=== PATIENT | female | born 1950 | race Caucasian/White ===

== ENCOUNTER 2021-07-23 02:38 | Outpatient (CLI) | payer OTHER, SELFPAY ==
[2021-07-23 12:29] LABS: Source Nasal/Nares
[2021-07-23 16:37] LABS: COVID-19 PCR Negative (Negative)
== END 2021-07-23 02:39 | disposition home or self-care (01) ==
LOC: LBO 02:38
PROVIDERS: PCP Student in an Organized Health Care Education/Training Program; Visit Provider Ophthalmology
DX: Z20.822 Contact with and (suspected) exposure to COVID-19 (principal); Z01.818 Encounter for other preprocedural examination
CPT/HCPCS: 87635

== ENCOUNTER 2021-07-26 06:18 | Day surgery (SDC) | payer OTHER, SELFPAY ==
--- OUTSIDE RECORDS SUMMARY | 2021-07-26 06:20 | XMS_ITS | Encounter Summary ---
:1950 Author Organization Department [facility] Address [address] [place] [address] Care Team Providers Name Role Phone BARRINGTON ANDERSON Primary Care Provider Unavailable Insurance Providers: All historical and current Section Date Range: From patient's date of to the date document was created.This section includes the names of all active insurance providers for the patient. Insurance Type of Plan Start of End of Group Member Insurance Policy P atient's Provider Coverage Name Policy Policy Number ID Provider's Diana's Relationship Coverage Coverage Telephone Name to Policy Number Diana MEDICARE MEDICARE PART May 06, PART A [id number] CHYNATYRESE PATIENT (WNR) (M) A 2013 [id number] 2 BBI MEDICARE MEDICARE PART May 06, PART B [id number] CLEMENTE TYRESE PATIENT (WNR) (M) B 2013 [id number] 2 BBI [facility] Nov 06, WNR [id number] [phone] TYRESE CLEMENTE PATIENT HEALTH SYED(W 2017 [id number] BBI PLAN NR) [facility] USP Nov 06, [id number] [phone] TYRESE RIOJAS PATIENT HEALTH -MART 2017 [id number] BBI PLAN [place] Selected Encounter This section includes the information on record at NH for the Encounter. Date/Time Encounter Type Encounter Description Reason Provider Source Oct 23, 2020 12:52 Outpatient Encounter COMP [facility]OM[facility] PM IHE Encounter Template Text not used by NH Plan of Treatment: Future Appointments (+ 6 months) and Future Tests (+/- 45 days) The Plan of Treatment section includes future care activities for the patient from all NH treatment facilities. This section includes future appointments and future orders which are active, pending or scheduled.Future Appointments This section includes appointments that were scheduled to occur 6 months from the date of the Encounter, up to a maximum of 20 appointments. The data comes from all [facility]. Appointment Date/Time Appointment Type Appointment Facili ty Name March 12, 2021 09:30 AM AMBULATORY - MEDICINE [facility] March 12, 2021 10:30 AM AMBULATORY - SURGERY [facility] March 15, 2021 10:00 AM AMBULATORY - MEDICINE [facility] Apr 14, 2021 01:15 PM AMBULATORY - SURGERY [facility] Social History: Smoking Status (Most current) and Tobacco Use (All prior to encounter date) This section includes the most current, and the historical, smoking and tobacco-related health factors from the NH facility where the Encounter took place.Current Smoking Status This section includes the most current smoking, or tobacco-related health factor, from the NH facility where the Encounter took place. Date/Time Current Smoking Status Comment [facility] Jul 17, 2020 11:00 AM VA-TOBACCO FORMER USER [facility] Tobacco Use History This section includes a history of the smoking, or tobacco-related health factors, that were collected on or before the date of the Encounter. The data comes from the NH facility where the Encounter took place. Date/Time Smoking Status/Tobacco Use Comment [facility] Jul 17, 2020 11:00 AM VA-TOBACCO QUIT 15 YRS OR MORE [facility] Jul 19, 2019 10:33 AM VA-TOBACCO NEVER USED RAFITA Miranda [facility] Jul 20, 2018 10:33 AM QUIT TOBACCO USE > 7 YEARS AGO [facility] Dec 23, 2016 10:27 AM LIFETIME NON-TOBACCO USER [facility] Nov 26, 2015 11:35 AM QUIT TOBACCO USE > 7 YEARS AGO [facility] May 19, 2005 08:38 AM LIFETIME NON-SMOKER [facility] Apr 23, 2004 11:39 AM LIFETIME NON-SMOKER [facility] May 15, 2003 10:08 AM LIFETIME NON[place]SMOKER [place] [facility] Dec 31, 2001 04:36 PM LIFETIME NON[place]SMOKER [facility] [place] [facility] Advance Directives: All historical and current Section Date Range: From patient's date of to the date document was created. This section includes ALL of a patient's completed or amended VA Advance and Rescinded Directives. The entries below indicate that a directive exists for the patient, but an actual copy is not included with this document. The data comes from all [place] facilities. Date Advance Directives Provider Source Jun 05, 2017 ADVANCE DIRECTIVE LILLIAM DEGROOT ROSANGELA T [facility] Encounter Notes: All associated encounter notes This section contains the clinical notes associated to the Encounter. Date/Time Encounter Note(s) Provider Source Oct 23, 2020 12:52 PM PRIMARY CARE ADMINISTRATIVE NOTE: [place]IGO [place] LOCAL TITLE: Administrative Note/Primary Care [facility] STANDARD TITLE: PRIMARY CARE ADMINISTRATIVE NOTE DATE OF NOTE: OCT 23, 2020@12:52 ENTRY DATE: OCT 23, 2020@12:52:26 AUTHOR: RODRIGO [place] EXP COSIGNER: URGENCY: STATUS: COMPLETED Patient lvm at the [facility] asking to have Rx CODEINE 30/ACETAMINOPHEN 300MG TAB renewed and mailed out. /marlo/ RODRIGO [place] School Traffic Supervisor Signed: 10/23/2020 12:53 Receipt Acknowledged By: 10/23/2020 12:54 /marlo/ Barrington ceron MSN, LENS GRINDER ROUGH Nurse Practitioner Faculty * AWAITING SIGNATURE * MAGDY SALAZAR
--- OUTSIDE RECORDS SUMMARY | 2021-07-26 06:20 | XMS_ITS | Encounter Summary ---
:1950 [address] [facility] Address [address] [place] [address] Care Team Providers Name Role Phone BARRINGTON [...] MEDICARE MEDICARE PART May 06, PART A [id number] CHYNATYRESE PATIENT (WNR) (M) A 2013 DE63 2 BBI MEDICARE MEDICARE PART May 06, PART B [id number] CLEMENTE TYRESE PATIENT (WNR) (M) B 2013 DE63 2 BBI [facility] Nov 06, WNR [id number] [phone] TYRESE CLEMENTE PATIENT HEALTH SYED(W 2017 [id number] 364 BBI PLAN NR) [facility] USP Nov 06, [id number] [phone] TYRESE RIOJAS PATIENT HEALTH -MART 2017 [id number] 364 BBI PLAN [place] Selected Encounter This section includes the information on record at [place] for the Encounter. Date/Time Encounter Type Encounter Description Reason Provider Source Sep 22, 2020 12:03 Outpatient Encounter COMP [facility]OM[facility]S [facility] PM IHE Encounter Template Text not used by [place] Plan of Treatment: Future Appointments (+ 6 months) and Future Tests (+/- 45 days) The Plan of Treatment section includes future care activities for the patient from all [place] treatment facilities. This section includes future appointments and future orders which are active, pending or scheduled.Future Appointments This section includes appointments that were scheduled to occur 6 months from the date of the Encounter, up to a maximum of 20 appointments. The data comes from all [facility]. Appointment Date/Time Appointment Type Appointment Facili ty Name Oct 21, 2020 03:00 PM AMBULATORY - MEDICINE [facility] March 12, 2021 09:30 AM AMBULATORY - MEDICINE [facility] March 12, 2021 10:30 AM AMBULATORY - SURGERY [facility] March 15, 2021 10:00 AM AMBULATORY - MEDICINE [facility] Social History: Smoking Status (Most current) and Tobacco Use (All prior to encounter date) This section includes the most current, and the historical, smoking and tobacco-related health factors from the [place] facility where the Encounter took place.Current Smoking Status This section includes the most current smoking, or tobacco-related health factor, from the [place] facility where the Encounter took place. Date/Time Current Smoking Status Comment Facility Jul 17, 2020 11:00 AM VA-TOBACCO FORMER USER [facility] Tobacco Use History This section includes a history of the smoking, or tobacco-related health factors, that were collected on or before the date of the Encounter. The data comes from the [place] facility where the Encounter took place. Date/Time Smoking Status/Tobacco Use Comment [facility] Jul 17, 2020 11:00 AM VA-TOBACCO QUIT 15 YRS OR MORE [facility] Jul 19, 2019 10:33 AM VA-TOBACCO NEVER USED WHIT Ruth [facility] Jul 20, 2018 10:33 AM QUIT TOBACCO USE > 7 YEARS AGO [facility] Dec 23, 2016 10:27 AM LIFETIME NON-TOBACCO USER [facility] Nov 26, 2015 11:35 AM QUIT TOBACCO USE > 7 YEARS AGO [facility] May 19, 2005 08:38 AM LIFETIME NON-SMOKER [facility] Apr 23, 2004 11:39 AM [facility] May 15, 2003 10:08 AM LIFETIME NON-SMOKER [facility] Dec 31, 2001 04:36 PM LIFETIME NON-SMOKER [facility] Advance Directives: All historical and current Section Date Range: From patient's date of to the date document was created. This section includes ALL of a patient's completed or amended VA Advance and Rescinded Directives. The entries below indicate that a directive exists for the patient, but an actual copy is not included with this document. The data comes from all [place] facilities. Date Advance Directives Provider Source Jun 05, 2017 ADVANCE DIRECTIVE LILLIAM DEGROOT ROSANGELA T [facility] Encounter Notes: All associated encounter notes This section contains the clinical notes associated to the Encounter. Date/Time Encounter Note(s) Provider Source Sep 22, 2020 12:03 PM PRIMARY CARE ADMINISTRATIVE NOTE: [place]RIGO [place] LOCAL TITLE: Administrative Note/Primary Care [facility] STANDARD TITLE: PRIMARY CARE ADMINISTRATIVE NOTE DATE OF NOTE: SEP 22, 2020@12:03 ENTRY DATE: SEP 22, 2020@12:04:35 AUTHOR: RODRIGO [place] EXP COSIGNER: URGENCY: STATUS: COMPLETED [place] came to the [facility] to have the following Rx 's renewed and mailed out CODEINE 30/ACETAMINOPHEN 300MG TAB FAMOTIDINE TAB 20MG GLIPIZIDE TAB 10MG METFORMIN TAB,SA 500MG /es/ RODRIGO [place] Sand Drier Signed: 09/22/2020 12:24 Receipt Acknowledged By: * AWAITING SIGNATURE * BARRINGTON ANDERSON
--- OUTSIDE RECORDS SUMMARY | 2021-07-26 06:21 | XMS_ITS ---
:1950 Author Organization Department [facility] Address [address] [place] [address] Care Team Providers Name Role Phone BARRINGTON [...] MEDICARE MEDICARE PART May 06, PART A [id number] TYRESE CLEMENTE PATIENT (WNR) (M) A 2013 DE63 2 BBI MEDICARE MEDICARE PART May 06, PART B [id number] TYRESE CLEMENTE PATIENT (WNR) (M) B 2013 DE63 2 BBI [facility] Nov 06, WNR [id number] [phone] TYRESE CLEMENTE PATIENT HEALTH SYED(W 2017 [id number] 364 BBI PLAN NR) [facility] Nov 06, [id number] [phone] TYRESE RIOJAS PATIENT HEALTH -[facility]ART 2017 [id number] 364 BBI PLAN [place] Selected Encounter This section includes the information on record at [place] for the Encounter. Date/Time Encounter Type Encounter Description Reason Provider Source Jun 02, 2021 02:10 Outpatient Encounter ADMIN PAT ACTIVTIES PM (MASNONCT) IHE Encounter Template Text not used by [place] Plan of Treatment: Future Appointments (+ 6 months) and Future Tests (+/- 45 days) The Plan of Treatment section includes future care activities for the patient from all [place] treatment facilities. This section includes future appointments and future orders which are active, pending or scheduled.Future Appointments This section includes appointments that were scheduled to occur 6 months from the date of the Encounter, up to a maximum of 20 appointments. The data comes from all [facility]. Appointment Date/Time Appointment Type Appointment Facili ty Name Jul 20, 2021 03:00 PM AMBULATORY - MEDICINE [facility] Sep 13, 2021 10:00 AM AMBULATORY MEDICINE [facility] Active, Pending, and Scheduled Orders This section includes a listing of several types of active, pending, and scheduled orders, including clinic medications orders, diagnostic test orders, procedure orders and consult orders; where the start date of the order is 45 days before the date of the Encounter or 45 days after the date of the Encounter. The data comes from all [facility]. Test Date/Time Test Type Test Details Facility Name May 07, 2021 01:57 PM Consult Order PODIATRY OUTPATIENT Cons W LAZARO [facility] Showcase [facility] Social History: Smoking Status (Most current) and Tobacco Use (All prior to encounter date) This section includes the most current, and the historical, smoking and tobacco-related health factors from the [place] facility where the Encounter took place.Current Smoking Status This section includes the most current smoking, or tobacco-related health factor, from the [place] facility where the Encounter took place. Date/Time Current Smoking Status Comment Facility March 15, 2021 10:00 AM VA-TOBACCO NEVER USED RAFITA Miranda [facility] Tobacco Use History This section includes a history of the smoking, or tobacco-related health factors, that were collected on or before the date of the Encounter. The data comes from the [place] facility where the Encounter took place. Date/Time Smoking Status/Tobacco Use Comment [facility] Jul 17, 2020 11:00 AM VA-TOBACCO FORMER USER [facility]I [facility] Jul 17, 2020 11:00 AM VA-TOBACCO QUIT 15 YRS OR MORE [facility] Jul 19, 2019 10:33 AM VA-TOBACCO NEVER USED RAFITA [facility] Jul 20, 2018 10:33 AM QUIT TOBACCO USE > 7 YEARS AGO [facility] [place] [facility] Dec 23, 2016 10:27 AM LIFETIME NON-TOBACCO USER [facility] [place] [facility] Nov 26, 2015 11:35 AM QUIT TOBACCO USE > 7 YEARS AGO [facility] [place] [facility] May 19, 2005 08:38 AM LIFETIME NON-SMOKER [place] [facility] Apr 23, 2004 11:39 AM LIFETIME NON-SMOKER [place] [facility] May 15, 2003 10:08 AM LIFETIME NON-SMOKER [place] [facility] Dec 31, 2001 04:36 PM LIFETIME NON-SMOKER [place] [facility] Advance Directives: All historical and current Section Date Range: From patient's date of to the date document was created. This section includes ALL of a patient's completed or amended [place] Advance and Rescinded Directives. The entries below indicate that a directive exists for the patient, but an actual copy is not included with this document. The data comes from all [place] facilities. Date Advance Directives Provider Source Jun 05, 2017 ADVANCE DIRECTIVE LILLIAM DEGROOT ROSANGLEA T [facility] Encounter Notes: All associated encounter notes This section contains the clinical notes associated to the Encounter. Date/Time Encounter Note(s) Provider Source Jun 02, 2021 02:10 PM PRIMARY CARE ADMINISTRATIVE NOTE: NICK ELLIOTT [place] LOCAL TITLE: Administrative Note/Primary Care [facility] STANDARD TITLE: PRIMARY CARE ADMINISTRATIVE NOTE DATE OF NOTE: JUN 02, 2021@14:10 ENTRY DATE: JUN 02, 2021@14:10:57 AUTHOR: NICK ELLIOTT EXP COSIGNER: URGENCY: STATUS: COMPLETED Reached out to Pt and scheduled for Date/Time: Monday 3:00 PM Clinic: [facility] PRE-OP RISK ASMT [id number] Location: [address] Telephone Ext.: [phone] Provider: EDGAR HENDRICKS Pre Op Risk Assessment /es/ NICK ELLIOTT Supervisory MSA Signed: 06/02/2021 14:11
--- OUTSIDE RECORDS SUMMARY | 2021-07-26 06:21 | XMS_ITS | Encounter Summary ---
:1950 Author Organization Department [facility] Address [address] [place] [address] Care Team Providers Name Role Phone BARRINGTON [...] MEDICARE MEDICARE PART May 06, PART A [id number] CLEMENTE ,TYRESE PATIENT (WNR) (M) A 2013 DE63 2 BBI MEDICARE MEDICARE PART May 06, PART B [id number] TYRESE CLEMENTE PATIENT (WNR) (M) B 2013 DE63 2 BBI [facility]FA Nov 06, WNR [id number] [phone] TYRESE CLEMENTE PATIENT HEALTH SYED(W 2017 [id number] 364 BBI PLAN NR) [facility] Nov 06, [id number] [phone] TYRESE RIOJAS PATIENT HEALTH -[facility]ART 2017 [id number] BBI PLAN [place] Selected Encounter This section includes the information on record at [place] for the Encounter. Date/Time Encounter Type Encounter Description Reason Provider Source Jul 22, 2021 08:28 Outpatient Encounter TELEPHONE TRIAGE AM IHE Encounter Template Text not used by [place] Plan of Treatment: Future Appointments (+ 6 months) and Future Tests (+/- 45 days) The Plan of Treatment section includes future care activities for the patient from all [place] treatment facilities. This section includes future appointments and future orders which are active, pending or scheduled.Future Appointments This section includes appointments that were scheduled to occur 6 months from the date of the Encounter, up to a maximum of 20 appointments. The data comes from all [facility]. Appointment Date/Time Appointment Type Appointment Facili ty Name Sep 13, 2021 10:00 AM AMBULATORY - MEDICINE [facility] Active, Pending, and Scheduled Orders This section includes a listing of several types of active, pending, and scheduled orders, including clinic medications orders, diagnostic test orders, procedure orders and consult orders; where the start date of the order is 45 days before the date of the Encounter or 45 days after the date of the Encounter. The data comes from all [place] treatment facilities. Test Date/Time Test Type Test Details Facility Name Jul 20, 2021 12:00 AM Laboratory - Chemistry CBC NO DIFF [facility] Order BLOOD(LAV-EDTA) SP [facility] Jul 20, 2021 12:00 AM Laboratory - Chemistry P4 [facility] GLU,BUN,CREAT,LYTES, [facility] CA LT GREEN(LI HEP) PLASMA SP Jul 20, 2021 12:00 AM Laboratory - Chemistry PT&INR BLOOD(BLUE-N A [place] Order CIT) PLASMA [facility] Social History: Smoking Status (Most current) and Tobacco Use (All prior to encounter date) This section includes the most current, and the historical, smoking and tobacco-related health factors from the [place] facility where the Encounter took place.Current Smoking Status This section includes the most current smoking, or tobacco-related health factor, from the [place] facility where the Encounter took place. Date/Time Current Smoking Status Comment Facility March 15, 2021 10:00 AM [place]-TOBACCO NEVER USED [place] [facility] Tobacco Use History This section includes a history of the smoking, or tobacco-related health factors, that were collected on or before the date of the Encounter. The data comes from the [place] facility where the Encounter took place. Date/Time Smoking Status/Tobacco Use Comment Facil it Jul 17, 2020 11:00 AM VA-TOBACCO FORMER USER [place] [facility] Jul 17, 2020 11:00 AM VA-TOBACCO QUIT 15 YRS OR MORE [facility] [place] [facility] Jul 19, 2019 10:33 AM VA-TOBACCO NEVER USED RAFITA [place] [facility] Jul 20, 2018 10:33 AM QUIT TOBACCO USE > 7 YEARS AGO [place] [facility] Dec 23, 2016 10:27 AM LIFETIME NON-TOBACCO USER [facility] [place] [facility] Nov 26, 2015 11:35 AM QUIT TOBACCO USE > 7 YEARS AGO [place] [facility] May 19, 2005 08:38 AM LIFETIME NON-SMOKER [place] [facility] Apr 23, 2004 11:39 AM LIFETIME NON-SMOKER [place] [facility] May 15, 2003 10:08 AM LIFETIME NON-SMOKER [place] [facility] Dec 31, 2001 04:36 PM LIFETIME NON-SMOKER [place] [facility] Advance Directives: All historical and current Section Date Range: From patient's date of to the date document was created. This section includes ALL of a patient's completed or amended VA Advance and Rescinded Directives. The entries below indicate that a directive exists for the patient, but an actual copy is not included with this document. The data comes from all [place] facilities. Date Advance Directives Provider Source Jun 05, 2017 ADVANCE DIRECTIVE ZANELILLIAM Ruth [place] ROSANGELA T [facility] Encounter Notes: All associated encounter notes This section contains the clinical notes associated to the Encounter. Date/Time Encounter Note(s) Provider Source Jul 22, 2021 08:28 AM TELEPHONE ENCOUNTER NOTE: RYNE BLANCHARD AM[place] LOCAL TITLE: VISN 1 CCC ACTION REQUIRED [facility] STANDARD TITLE: TELEPHONE ENCOUNTER NOTE DATE OF NOTE: JUL 22, 2021@08:28:25 ENTRY DATE: JUL 22, 2021@08:33:06 AUTHOR: RYNE BLANCHARD EXP COSIGNER: URGENCY: STATUS: COMPLETED VISN 1 CCC ACTION REQUIRED Has ADDENDA * Type of call: CLINICAL INFORMATION/EDUCATION. PCMM Provider Info: LOCAL - [facility] [place] [facility] ([phone] PACT: [facility] (Focus: Womens Health) Designated Pcp: Barrington Anderson PHONE:... Wash House Worker: Katerin Salazar Clinical Associate: Drain Cleaner Plumber: Anastasia Lemus PHONE:[phone] Surrogate Wash House Worker: Emma Walters Clinical POC: Administrative POC: Caller Response: ADM CALL RESOLVED OTHER called in for CHYNAMACARENA ([phone]) . Comments: Arun from [facility] is requesting a copy of the Pre-op Asmt that was done on , will be having s urgery on 07/26/21. Arun can be reached at [phone] this can be faxed to [phone] ATTN: Anjel hooks Evaluation/Management Code: HC PRO PHONE CALL 5- [phone] MIN ([phone]). Starting at: 07/22/2021 @ 8:28:25 AM Ending at: 07/22/2021 @ 8:31:23 AM Length: 2 minutes. Author: RYNE BLANCHARD Caller Area: * NOVINGER The following identifiers were used to v erify this patient: SSN. Other: name. Chief Complaint: Not applicable to call. Class Code: Other specified counseling. Contact Patient's Email Address: /marlo/ RYNE BLANCHARD Signed: 07/22/2021 08:33 Receipt Acknowledged By: 07/22/2021 09:02 /marlo/ KATERIN SALAZAR Registered Nurse * AWAITING SIGNATURE * BARRINGTON ANDERSON 07/22/2021 09:42 /marlo/ STEPHANIE MARAVILLA 07/22/2021 ADDENDUM STATUS: COMPLETED Faxed note from 07/20/21 to [facility]. /marlo/ STEPHANIE MARAVILLA Signed: 07/22/2021 09:43
--- OUTSIDE RECORDS SUMMARY | 2021-07-26 06:21 | XMS_ITS ---
:1950 Author Organization Department [facility] Address [address] [place] [address] Care Team Providers Name Role Phone BARRINGTON [...] MEDICARE MEDICARE PART May 06, PART A [id number] TYRESE CLEMENTE PATIENT (WNR) (M) A 2013 DE63 2 BBI MEDICARE MEDICARE PART May 06, PART B [id number] CLEMENTE TYRESE PATIENT (WNR) (M) B 2013 DE63 2 BBI [facility] Nov 06, WNR [id number] [phone] TYRESE CLEMENTE PATIENT HEALTH SYED(W 2017 [id number] 364 BBI PLAN NR) [facility]ILY USFHP Nov 06, [id number] [phone] TYRESE RIOJAS PATIENT HEALTH -MART 2017 [id number] 364 BBI PLAN [place] Selected Encounter This section includes the information on record at [place] for the Encounter. Date/Time Encounter Type Encounter Description Reason Provider Source Dec 02, 2020 02:18 Outpatient Encounter ADMIN PAT ACTIVTIES PM (MASNONCT) IHE Encounter Template Text not used by [place] Plan of Treatment: Future Appointments (+ 6 months) and Future Tests (+/- 45 days) The Plan of Treatment section includes future care activities for the patient from all [place] treatment facilities. This section includes future appointments and future orders which are active, pending or scheduled.Future Appointments This section includes appointments that were scheduled to occur 6 months from the date of the Encounter, up to a maximum of 20 appointments. The data comes from all [facility]. Appointment Date/Time Appointment Type Appointment Facili ty Name March 12, 2021 09:30 AM AMBULATORY - MEDICINE [facility] March 12, 2021 10:30 AM AMBULATORY - SURGERY [facility] March 15, 2021 10:00 AM AMBULATORY - MEDICINE [facility] Apr 14, 2021 01:15 PM AMBULATORY - SURGERY [facility] Jun 01, 2021 08:30 AM AMBULATORY - NONE [facility] Social History: Smoking Status (Most current) and Tobacco Use (All prior to encounter date) This section includes the most current, and the historical, smoking and tobacco-related health factors from the [place] facility where the Encounter took place.Current Smoking Status This section includes the most current smoking, or tobacco-related health factor, from the [place] facility where the Encounter took place. Date/Time Current Smoking Status Comment Facility Jul 17, 2020 11:00 AM VA-TOBACCO FORMER USER [facility] Tobacco Use History This section includes a history of the smoking, or tobacco-related health factors, that were collected on or before the date of the Encounter. The data comes from the [place] facility where the Encounter took place. Date/Time Smoking Status/Tobacco Use Comment [facility] Jul 17, 2020 11:00 AM [place]-TOBACCO QUIT 15 YRS OR MORE [facility] Jul 19, 2019 10:33 AM VA-TOBACCO NEVER USED [facility] Jul 20, 2018 10:33 AM QUIT TOBACCO USE > 7 YEARS AGO [facility] Dec 23, 2016 10:27 AM LIFETIME NON-TOBACCO USER [facility] Nov 26, 2015 11:35 AM QUIT TOBACCO USE > 7 YEARS AGO [facility] May 19, 2005 08:38 AM LIFETIME NON-SMOKER [facility] [place] Apr 23, 2004 11:39 AM LIFETIME NON-SMOKER [place] May 15, 2003 10:08 AM LIFETIME NON-SMOKER [place] [facility] [facility] Dec 31, 2001 04:36 PM LIFET[facility]MOKER [place] [facility] Advance Directives: All historical and current Section Date Range: From patient's date of to the date document was created. This section includes ALL of a patient's completed or amended [place] Advance and Rescinded Directives. The entries below indicate that a directive exists for the patient, but an actual copy is not included with this document. The data comes from all [place] facilities. Date Advance Directives Provider Source Jun 05, 2017 ADVANCE DIRECTIVE LILLIAM DEGROOT [facility] Encounter Notes: All associated encounter notes This section contains the clinical notes associated to the Encounter. Date/Time Encounter Note(s) Provider Source Dec 02, 2020 02:18 PM ACCOUNTING OF DISCLOSURES NOTE: ARASH MCDOWELL LOCAL TITLE: STATE PRESCRIPTION DRUG MONITORING PROGRAM (SPDMP) [facility] STANDARD TITLE: ACCOUNTING OF DISCLOSURES NOTE DATE OF NOTE: DEC 02, 2020@14:18 ENTRY DATE: DEC 02, 2020@14:18:51 AUTHOR: KAELA MCDOWELL EXP COSIGNER: URGENCY: STATUS: COMPLETED V1-STATE PRESCRIPTION DRUG MONITORING PROGRAM (S PDMP) The purpose of this query was a part of the medi cation reconciliation process for the: Review for patient safety. The following State Prescription Drug Monitoring Program(s) were queried for this patient: [facility] (02/22/2018: [place] information may be placed in the patient medical records that pertains to [place] specific data ONLY, not from an interstate query) [facility] No prescription(s) for controlled substances wer e found to be filled outside the [facility]. /marlo/ KAELA MCDOWELL Signed: 12/02/2020 14:19
--- OUTSIDE RECORDS SUMMARY | 2021-07-26 06:21 | XMS_ITS ---
:1950 Author Organization Department [facility] Address [address] [place] [address] Care Team Providers Name Role Phone BARRINGTON [...] MEDICARE MEDICARE PART May 06, PART A [id number] TYRESE CLEMENTE PATIENT (WNR) (M) A 2013 DE63 2 BBI MEDICARE MEDICARE PART May 06, PART B [id number] TYRESE CLEMENTE PATIENT (WNR) (M) B 2013 DE63 2 BBI FAMILY USFAM Nov 06, WNR [id number] [phone] TYRESE CLEMENTE PATIENT HEALTH SYED(W 2017 [id number] 364 BBI PLAN NR) US FAMILY USP Nov 06, [id number] [phone] TYRESE RIOJAS PATIENT HEALTH -MART 2017 [id number] 364 BBI PLAN [place] Selected Encounter This section includes the information on record at [place] for the Encounter. Date/Time Encounter Type Encounter Description Reason Provider Source Jun 02, 2021 08:46 Outpatient Encounter ADMIN PAT ACTIVTIES AM (MASNONCT) IHE Encounter Template Text not used by [place] Plan of Treatment: Future Appointments (+ 6 months) and Future Tests (+/- 45 days) The Plan of Treatment section includes future care activities for the patient from all [place] treatment facilities. This section includes future appointments and future orders which are active, pending or scheduled.Future Appointments This section includes appointments that were scheduled to occur 6 months from the date of the Encounter, up to a maximum of 20 appointments. The data comes from all [facility]. Appointment Date/Time Appointment Type Appointment Facili ty Name Jul 20, 2021 03:00 PM AMBULATORY - MEDICINE [facility] Sep 13, 2021 10:00 AM AMBULATORY MEDICINE [facility] Active, Pending, and Scheduled Orders This section includes a listing of several types of active, pending, and scheduled orders, including clinic medications orders, diagnostic test orders, procedure orders and consult orders; where the start date of the order is 45 days before the date of the Encounter or 45 days after the date of the Encounter. The data comes from all [facility]. Test Date/Time Test Type Test Details Facility Name May 07, 2021 01:57 PM Consult Order PODIATRY OUTPATIENT Cons W LAZARO [facility] Medical Records Administrator's Choice Social History: Smoking Status (Most current) and Tobacco Use (All prior to encounter date) This section includes the most current, and the historical, smoking and tobacco-related health factors from the [place] facility where the Encounter took place.Current Smoking Status This section includes the most current smoking, or tobacco-related health factor, from the [place] facility where the Encounter took place. Date/Time Current Smoking Status Comment Facility March 15, 2021 10:00 AM VA-TOBACCO NEVER USED RAFITA Miranda [facility] Tobacco Use History This section includes a history of the smoking, or tobacco-related health factors, that were collected on or before the date of the Encounter. The data comes from the [place] facility where the Encounter took place. Date/Time Smoking Status/Tobacco Use Comment [facility] Jul 17, 2020 11:00 AM VA-TOBACCO FORMER USER [facility] Jul 17, 2020 11:00 AM VA-TOBACCO QUIT 15 YRS OR MORE [facility] Jul 19, 2019 10:33 AM VA-TOBACCO NEVER USED RAFITA [facility] Jul 20, 2018 10:33 AM QUIT TOBACCO USE > 7 YEARS AGO [facility] [place] [facility] Dec 23, 2016 10:27 AM LIFETIME NON-TOBACCO USER [facility] [place] [facility] Nov 26, 2015 11:35 AM QUIT TOBACCO USE > 7 YEARS AGO [facility] [place] [facility] May 19, 2005 08:38 AM LIFETIME NON-SMOKER [place] [facility] Apr 23, 2004 11:39 AM LIFET[place] [facility]SMOKER [place] [facility] May 15, 2003 10:08 AM LIFETIME NON-SMOKER [place] [facility] Dec 31, 2001 04:36 PM LIFETIME NON-SMOKER [place] [facility] Advance Directives: All historical and current Section Date Range: From patient's date of to the date document was created. This section includes ALL of a patient's completed or amended [place] Advance and Rescinded Directives. The entries below indicate that a directive exists for the patient, but an actual copy is not included with this document. The data comes from all [place] facilities. Date Advance Directives Provider Source Jun 05, 2017 ADVANCE DIRECTIVE LILLIAM DEGROOT [facility] Encounter Notes: All associated encounter notes This section contains the clinical notes associated to the Encounter. Date/Time Encounter Note(s) Provider Source Jun 02, 2021 08:46 AM PRIMARY CARE ADMINISTRATIVE NOTE: NICK ELLIOTT [place] LOCAL TITLE: Administrative Note/Primary Care [facility] STANDARD TITLE: PRIMARY CARE ADMINISTRATIVE NOTE DATE OF NOTE: JUN 02, 2021@08:46 ENTRY DATE: JUN 02, 2021@08:46:46 AUTHOR: NICK ELLIOTT EXP COSIGNER: URGENCY: STATUS: COMPLETED Called Pt and left V/M about scheduling pre-op. Left ext. [phone] /es/ NICK ELLIOTT Supervisory MSA Signed: 06/02/2021 08:47
--- OUTSIDE RECORDS SUMMARY | 2021-07-26 06:21 | XMS_ITS ---
:1950 [address] [facility] Address [address] [place] [address] Care Team Providers Name Role Phone BARRINGTON [...] Coverage Name Policy Policy Number ID Provider's Dinaa's Relationship Coverage Coverage Telephone Name to Policy Number Diana MEDICARE MEDICARE PART May 06, PART A [id number] TYRESE CLEMENTE PATIENT (WNR) (M) A 2013 DE63 2 BBI MEDICARE MEDICARE PART May 06, PART B [id number] TYRESE CLEMENTE PATIENT (WNR) (M) B 2013 DE63 2 BBI FAMILY USFAM Nov 06, WNR [id number] [phone] TYRESE CLEMENTE PATIENT HEALTH SYED(W 2017 [id number] 364 BBI PLAN NR) US FAMILY USP Nov 06, [id number] [phone] TYRESE RIOJAS PATIENT HEALTH -MART 2017 [id number] BBI PLAN [place] Selected Encounter This section includes the information on record at [place] for the Encounter. Date/Time Encounter Type Encounter Description Reason Provider Source Dec 09, 2020 12:18 Outpatient Encounter ADMIN PAT ACTIVTIES PM (MASNONCT) IHE Encounter Template Text not used by [place] Plan of Treatment: Future Appointments (+ 6 months) and Future Tests (+/- 45 days) The Plan of Treatment section includes future care activities for the patient from all [place] treatment facilities. This section includes future appointments and future orders which are active, pending or scheduled.Future Appointments This section includes appointments that were scheduled to occur 6 months from the date of the Encounter, up to a maximum of 20 appointments. The data comes from all [facility]. Appointment Date/Time Appointment Type Appointment Facili ty Name March 12, 2021 09:30 AM AMBULATORY - MEDICINE [facility] March 12, 2021 10:30 AM AMBULATORY - SURGERY [facility] March 15, 2021 10:00 AM AMBULATORY - MEDICINE [facility] Apr 14, 2021 01:15 PM AMBULATORY - SURGERY [facility] Jun 01, 2021 08:30 AM AMBULATORY - NONE [facility] Social History: Smoking Status (Most current) and Tobacco Use (All prior to encounter date) This section includes the most current, and the historical, smoking and tobacco-related health factors from the [place] facility where the Encounter took place.Current Smoking Status This section includes the most current smoking, or tobacco-related health factor, from the [place] facility where the Encounter took place. Date/Time Current Smoking Status Comment Facility Jul 17, 2020 11:00 AM VA-TOBACCO FORMER USER [facility] Tobacco Use History This section includes a history of the smoking, or tobacco-related health factors, that were collected on or before the date of the Encounter. The data comes from the [place] facility where the Encounter took place. Date/Time Smoking Status/Tobacco Use Comment [facility] Jul 17, 2020 11:00 AM [place]-TOBACCO QUIT 15 YRS OR MORE [facility] Jul 19, 2019 10:33 AM VA-TOBACCO NEVER USED [facility] Jul 20, 2018 10:33 AM QUIT TOBACCO USE > 7 YEARS AGO [facility] Dec 23, 2016 10:27 AM LIFETIME NON-TOBACCO USER [facility] Nov 26, 2015 11:35 AM QUIT TOBACCO USE > 7 YEARS AGO [facility] May 19, 2005 08:38 AM LIFETIME NON-SMOKER [facility] Apr 23, 2004 11:39 AM LIFETIME NON-SMOKER [facility] May 15, 2003 10:08 AM LIFETIME NON-SMOKER [facility] Dec 31, 2001 04:36 PM LIFETIME NON-SMOKER [facility] Advance Directives: All historical and current Section Date Range: From patient's date of to the date document was created. This section includes ALL of a patient's completed or amended [place] Advance and Rescinded Directives. The entries below indicate that a directive exists for the patient, but an actual copy is not included with this document. The data comes from all [place] facilities. Date Advance Directives Provider Source Jun 05, 2017 ADVANCE DIRECTIVE LILLIAM DEGROOT [facility] Encounter Notes: All associated encounter notes This section contains the clinical notes associated to the Encounter. Date/Time Encounter Note(s) Provider Source Dec 09, 2020 12:18 PRIMARY CARE ADMINISTRATIVE NOTE: BEREKET DIAZ [facility] LOCAL TITLE: Administrative Note/Primary Care [facility] STANDARD TITLE: PRIMARY CARE ADMINISTRATIVE NOTE DATE OF NOTE: DEC 09, 2020@12:18 ENTRY DATE: DEC 09, 2020@12:18:57 AUTHOR: STORM DIAZ EXP COSIGNER: URGENCY: STATUS: COMPLETED GLIPIZIDE TAB 10MG TAKE ONE TABLET BY MOUTH TWICE A DAY FOR DIABETE S RJ Quantity: 180 Refills: 3 METFORMIN TAB,SA 500MG TAKE FOUR TABLETS BY MOUTH EVERY DAY FOR DIABETE S Quantity: 120 Refills: 3 FAMOTIDINE TAB 20MG TAKE ONE TABLET BY MOUTH AT BEDTIME FOR STOMACH ACID Quantity: 30 Refills: 3 CARBOXYMETHYLCELLULOSE NA 0.5%(PF)OP [place] INSTILL ONE DROP IN BOTH EYES TWO TO FOUR TIMES DAILY FOR DRYNESS Quantity: 60 Refills: 10 ATORVASTATIN TAB 40MG TAKE ONE TABLET BY MOUTH EVERY DAY TO LOWER CHOL ESTEROL RJ Quantity: 90 Refills: 3 CODEINE 30/ACETAMINOPHEN 300MG TAB TAKE 1 TABLET BY MOUTH EVERY FOUR HOURS NEEDED FOR PAIN. MAY TAKE 2 TABS AT BEDTIME FOR SEVERE PAIN. Quantity: 56 Refills: 0 Patient called and left a voicemail stating that she has not taken any medications in almost three weeks becaus e she moved and the medication is lost somewhere in cartons. Patient went on to say th at she needs Anisa to refill all of her medications becwilly sh e needs them and have them sent to her [address] in [place], [place]. Director Of Provider Relations timothy hilario to call the patient to verify all medications needed voicemail was left . Director Of Provider Relations will alert the provider and the nurse. /marlo/ STORM DIAZ Signed: 12/09/2020 12:30 Receipt Acknowledged By: * AWAITING SIGNATURE * BARRINGTON ANDERSON * AWAITING SIGNATURE * MAGDY SALAZAR
--- OUTSIDE RECORDS SUMMARY | 2021-07-26 06:22 | XMS_ITS | Encounter Summary ---
:1950 [address] [facility] Address [address] [place] [address] Care Team Providers Name Role Phone BARRINGTON [...] MEDICARE MEDICARE PART May 06, PART A [id number] CLEMENTE ,TYRESE PATIENT (WNR) (M) A 2013 DE63 2 BBI MEDICARE MEDICARE PART May 06, PART B [id number] TYRESE CLEMENTE PATIENT (WNR) (M) B 2013 DE63 2 BBI [facility] USFA Nov 06, WNR [id number] [phone] TYRESE CLEMENTE PATIENT HEALTH SYED(W 2017 [id number] 364 BBI PLAN NR) [facility] Nov 06, [id number] [phone] TYRESE RIOJAS PATIENT HEALTH -[facility]ART 2017 [id number] 364 BBI PLAN [place] Selected Encounter This section includes the information on record at [place] for the Encounter. Date/Time Encounter Type Encounter Description Reason Provider Source Jun 01, 2021 09:34 Outpatient Encounter TELEPHONE TRIAGE AM IHE Encounter Template Text not used by [place] Plan of Treatment: Future Appointments (+ 6 months) and Future Tests (+/- 45 days) The Plan of Treatment section includes future care activities for the patient from all [place] treatment facilities. This section includes future appointments and future orders which are active, pending or scheduled.Future Appointments This section includes appointments that were scheduled to occur 6 months from the date of the Encounter, up to a maximum of 20 appointments. The data comes from all [facility]. Appointment Date/Time Appointment Type Appointment Facili ty Name Jul 20, 2021 03:00 PM AMBULATORY - MEDICINE [facility] Sep 13, 2021 10:00 AM AMBULATORY - MEDICINE [facility] Active, Pending, and Scheduled Orders This section includes a listing of several types of active, pending, and scheduled orders, including clinic medications orders, diagnostic test orders, procedure orders and consult orders; where the start date of the order is 45 days before the date of the Encounter or 45 days after the date of the Encounter. The data comes from all [facility] facilities. Test Date/Time Test Type Test Details Facility Name May 07, 2021 01:57 PM Consult Order PODIATRY OUTPATIENT Cons W LAZARO [facility] Bible Worker's Choice Social History: Smoking Status (Most current) and Tobacco Use (All prior to encounter date) This section includes the most current, and the historical, smoking and tobacco-related health factors from the [place] facility where the Encounter took place.Current Smoking Status This section includes the most current smoking, or tobacco-related health factor, from the [place] facility where the Encounter took place. Date/Time Current Smoking Status Comment Facility March 15, 2021 10:00 AM VA-TOBACCO NEVER USED RAFITA Miranda [facility] Tobacco Use History This section includes a history of the smoking, or tobacco-related health factors, that were collected on or before the date of the Encounter. The data comes from the [place] facility where the Encounter took place. Date/Time Smoking Status/Tobacco Use Comment [facility] Jul 17, 2020 11:00 AM VA-TOBACCO FORMER USER [facility] Jul 17, 2020 11:00 AM VA-TOBACCO QUIT 15 YRS OR MORE [facility] Jul 19, 2019 10:33 AM VA-TOBACCO NEVER USED RAFITA [facility] Jul 20, 2018 10:33 AM QUIT TOBACCO USE > 7 YEARS AGO [facility] Dec 23, 2016 10:27 AM LIFETIME NON-TOBACCO USER [facility] Nov 26, 2015 11:35 AM QUIT TOBACCO USE > 7 YEARS AGO [facility] May 19, 2005 08:38 AM LIFETIME NON-SMOKER [facility] Apr 23, 2004 11:39 AM LIFETIME NON-SMOKER [facility] May 15, 2003 10:08 AM LIFETIME NON-SMOKER [facility] Dec 31, 2001 04:36 PM LIFETIME NON-SMOKER [facility] Advance Directives: All historical and current Section Date Range: From patient's date of to the date document was created. This section includes ALL of a patient's completed or amended [place] Advance and Rescinded Directives. The entries below indicate that a directive exists for the patient, but an actual copy is not included with this document. The data comes from all [place] facilities. Date Advance Directives Provider Source Jun 05, 2017 ADVANCE DIRECTIVE LILLIAM DEGROOT [facility] Encounter Notes: All associated encounter notes This section contains the clinical notes associated to the Encounter. Date/Time Encounter Note(s) Provider Source Jun 01, 2021 09:34 AM TELEPHONE ENCOUNTER NOTE: LENKA BAPTISTE [facility] LOCAL TITLE: VISN 1 CCC ACTION REQUIRED [facility] STANDARD TITLE: TELEPHONE ENCOUNTER NOTE DATE OF NOTE: JUN 01, 2021@09:34:57 ENTRY DATE: JUN 01, 2021@09:37:37 AUTHOR: LENKA BAPTISTE EXP COSIGNER: URGENCY: STATUS: COMPLETED VISN 1 CCC ACTION REQUIRED Has ADDENDA * Type of call: CLINICAL INFORMATION/EDUCATION. Caller Response: ADM CALL RESOLVED OTHER called in for MACARENA CLEMENTE ([phone]) . Comments: Luigi [facility] is calling to s et up a Pre-Op physical for Cataract Surgery 07/26 and 08/09. Please set up shortly after to cover both. Please call them back at [phone] Evaluation/Management Code: HC PRO PHONE CALL [phone]- [phone] MIN ([phone]). Starting at: 06/01/2021 @ 9:34:57 AM Ending at: 06/01/2021 @ 9:36:37 AM Length: 1 minutes. Author: LENKA BAPTISTE Caller Area: * [place] The following identifiers were used to verify th is patient: . Chief Complaint: Not applicable to call. Class Code: Other specified counseling. Contact Patient's Email Address: /marlo/ LENKA BAPTISTE [facility] Advanced Leisure Travel Agent Signed: 06/01/2021 09:37 Receipt Acknowledged By: 06/01/2021 10:08 /marlo/ Barrington ceron MSN, OFFSET PRINTING OPERATOR Nurse Practitioner Faculty 06/01/2021 ADDENDUM STATUS: COMPLETED Preop risk assessment consult placed /rachel Anderson MSN, OFFSET PRINTING OPERATOR Nurse Practitioner Faculty Signed: 06/01/2021 10:08 Receipt Acknowledged By: * AWAITING SIGNATURE * NICK ELLIOTT
--- OUTSIDE RECORDS SUMMARY | 2021-07-26 06:22 | XMS_ITS | Encounter Summary ---
:1950 Author Organization Department [facility] Address [address] [place] [id number] Care Team Providers Name Role Phone BARRINGTON [...] MEDICARE MEDICARE PART May 06, PART A [id number] TYRESE CLEMENTE PATIENT (WNR) (M) A 2013 DE63 2 BBI MEDICARE MEDICARE PART May 06, PART B [id number] CHYNATYRESE PATIENT (WNR) (M) B 2013 DE63 2 BBI [facility] [place] Nov 06, WNR [id number] [phone] TYRESE CLEMENTE PATIENT HEALTH SYED(W 2017 [id number] 364 BBI PLAN NR) [facility] Nov 06, [id number] [phone] TYRESE RIOJAS PATIENT [facility] 2017 [id number] 364 BBI PLAN [place] Selected Encounter This section includes the information on record at [place] for the Encounter. Date/Time Encounter Type Encounter Reason Provider Source Description May 06, 2021 FIT SPECTACLES OPTOMETRY ICD-10-CM Z46.0 ANNA MARIE NICHOLSON 09:59 AM MULTIFOCAL Encounter for fit/adjst of spectacles and contact lenses with Provider Comments: Encounter for Fitting and Adjustment of Spectacles and Contact Lenses IHE Encounter Template Text not used by VA Assessments - Encounter Diagnoses This section includes the primary and secondary diagnoses documented forthe Encounter. Date/Time Primary/Secondary Diagnosis Name Provider Source Diagnosis May 06, 2021 PRIMARY Encounter for ANNA MARIE NICHOLSON 09:59 AM fit/adjst of [facility] spectacles and contact lenses Plan of Treatment: Future Appointments (+ 6 months) and Future Tests (+/- 45 days) The Plan of Treatment section includes future care activities for the patient from all [place] treatment facilities. This section includes future appointments and future orders which are active, pending or scheduled.Future Appointments This section includes appointments that were scheduled to occur 6 months from the date of the Encounter, up to a maximum of 20 appointments. The data comes from all [facility]. Appointment Date/Time Appointment Type Appointment Facili ty Name Jun 01, 2021 08:30 AM AMBULATORY - NONE [facility] Jul 20, 2021 03:00 PM AMBULATORY - MEDICINE [facility] Sep 13, 2021 10:00 AM AMBULATORY - MEDICINE [facility] Active, Pending, and Scheduled Orders This section includes a listing of several types of active, pending, and scheduled orders, including clinic medications orders, diagnostic test orders, procedure orders and consult orders; where the start date of the order is 45 days before the date of the Encounter or 45 days after the date of the Encounter. The data comes from all [place] treatment facilities. Test Date/Time Test Type Test Details Facility Name March 22, 2021 01:16 PM Consult Order COMMUNITY CARE-OPHTH [facility] SURGICAL Cons Network Manager's Choice May 07, 2021 01:57 PM Consult Order PODIATRY OUTPATIENT Cons [facility] Network Manager's Choice Surgical Procedures: All associated to the encounter This section includes all Surgical Procedures and Surgical Procedure Notes associated to the Encounter.Surgical Procedures This section includes all Surgical Procedures associated to the Encounter.Surgical Procedure Date/Time Procedure Procedure Type Procedure Provider Source Qualifiers May 06, 2021 Glasses Fitting, FIT SPECTACLES BHARAT,ANNA MARIE 09:59 AM Multifocal MULTIFOCAL Surgical Notes There are no notes associated with this procedure. Social History: Smoking Status (Most current) and Tobacco Use (All prior to encounter date) This section includes the most current, and the historical, smoking and tobacco-related health factors from the [place] facility where the Encounter took place.Current Smoking Status This section includes the most current smoking, or tobacco-related health factor, from the [place] facility where the Encounter took place. Date/Time Current Smoking Status Comment Facility March 15, 2021 10:00 AM VA-TOBACCO NEVER USED [place] [facility] Tobacco Use History This section includes a history of the smoking, or tobacco-related health factors, that were collected on or before the date of the Encounter. The data comes from the [place] facility where the Encounter took place. Date/Time Smoking Status/Tobacco Use Comment [facility] Jul 17, 2020 11:00 AM VA-TOBACCO FORMER USER [place] [facility] Jul 17, 2020 11:00 AM VA-TOBACCO QUIT 15 YRS OR MORE [place] [facility] Jul 19, 2019 10:33 AM VA-TOBACCO NEVER USED [place] [facility] Jul 20, 2018 10:33 AM QUIT TOBACCO USE > 7 YEARS AGO [place] [facility] Dec 23, 2016 10:27 AM LIFETIME NON-TOBACCO USER [place] [facility] Nov 26, 2015 11:35 AM QUIT TOBACCO USE > 7 YEARS AGO [place] [facility] May 19, 2005 08:38 AM LIFETIME NON-SMOKER [place] [facility] Apr 23, 2004 11:39 AM LIFETIME NON-SMOKER [place] [facility] May 15, 2003 10:08 AM LIFETIME NON-SMOKER [place] [facility] Dec 31, 2001 04:36 PM LIFETIME NON-SMOKER [place] [facility] Advance Directives: All historical and current Section Date Range: From patient's date of to the date document was created. This section includes ALL of a patient's completed or amended [place] Advance and Rescinded Directives. The entries below indicate that a directive exists for the patient, but an actual copy is not included with this document. The data comes from all [place] facilities. Date Advance Directives Provider Source Jun 05, 2017 ADVANCE DIRECTIVE LILLIAM DEGROOT [place] [facility] Encounter Notes: All associated encounter notes This section contains the clinical notes associated to the Encounter. Date/Time Encounter Note(s) Provider Source May 06, 2021 09:59 AM ADMINISTRATIVE NOTE: MALLORY LAWRENCE [place] LOCAL TITLE: Has Admin Note [facility] TITLE: ADMINISTRATIVE NOTE DATE OF NOTE: MAY 06, 2021@09:59 ENTRY DATE: MAY 06, 2021@09:59:42 AUTHOR: MALLORY LAWRENCE EXP COSIGNER: URGENCY: STATUS: COMPLETED Has Admin Note Has ADDENDA Reason for call Clinic Name:[facility] Krystal called the clinic today asking for another pair of progressive glasses, current one broke. Can you please mail it to [address] [address] /marlo/ MALLORY LAWRENCE Signed: 05/06/2021 10:00 Receipt Acknowledged By: 05/25/2021 13:10 /marlo/ ANNA MARIE PRATHERIAN * AWAITING SIGNATURE * KEVIN WILDER 05/25/2021 ADDENDUM STATUS: COMPLETED NEW FIT Multifocal was fit with new mul tifocal eyeglasses (59039), which will be mailed to the 's home in approximately three weeks, these are to replace the 09/2020 pair that was broken. Callaway was informed that he or she may return t o the drop in clinic for fittings, repairs, and adjustments as needed. KRYSTAL CLEMENTE 7830 RX INFORMATION OD -2.25 -1.25 X105 Add:+2.75 Pzm:0.00 Dir: Prz2 :0.00 Dir2: OS -2.25 -1.75 X35 Add:+2.75 Pzm:0.00 Dir: Prz2: 0.00 Dir2: FITTING INFORMATION FPD: NPD: [place]:R:32 L:29 SEG HT:R:19 L:19 Tint:None Shade:None VA Billable Items FRAME: S528 [facility] [id number] Right Lens: PLASTIC VA PROGRESSIVE PHOTOCHROMIC COCHRAN 1.498 PLASTIC CR39 Left Lens: PLASTIC VA PROGRESSIVE PHOTOCHROMIC G DANIELE 1.498 PLASTIC CR39 Glasses fitted by:Anna Marie Nicholson /marlo/ ANNA MARIE NICHOLSON [facility] NURSE Signed: 05/25/2021 13:09 Receipt Acknowledged By: * AWAITING SIGNATURE * PAYAL GODOY
--- OUTSIDE RECORDS SUMMARY | 2021-07-26 06:22 | XMS_ITS | Encounter Summary ---
:1950 Author Organization Department [facility] Address [address] [place] [id number] Care Team Providers Name Role Phone BARRINGTON [...] MEDICARE MEDICARE PART May 06, PART A [id number] CLEMENTE ,TYRESE PATIENT (WNR) (M) A 2013 DE63 2 BBI MEDICARE MEDICARE PART May 06, PART B [id number] TYRESE CLEMENTE PATIENT (WNR) (M) B 2013 DE63 2 BBI [facility] Nov 06, WNR [id number] [phone] TYRESE CLEMENTE PATIENT HEALTH SY[facility](W 2017 [id number] 364 BBI PLAN NR) [facility] Nov 06, [id number] [phone] TYRESE RIOJAS PATIENT [facility] 2017 [id number] 364 BBI PLAN [place] Selected Encounter This section includes the information on record at [place] for the Encounter. Date/Time Encounter Type Encounter Description Reason Provider Source Jun 22, 2021 09:14 Outpatient Encounter TELEPHONE TRIAGE AM IHE Encounter Template Text not used by [place] Plan of Treatment: Future Appointments (+ 6 months) and Future Tests (+/- 45 days) The Plan of Treatment section includes future care activities for the patient from all [place] treatment facilities. This section includes future appointments and future orders which are active, pending or scheduled.Future Appointments This section includes appointments that were scheduled to occur 6 months from the date of the Encounter, up to a maximum of 20 appointments. The data comes from all [facility]. Appointment Date/Time Appointment Type Appointment Facili ty Name Jul 20, 2021 03:00 PM AMBULATORY - MEDICINE [facility] Sep 13, 2021 10:00 AM AMBULATORY - MEDICINE [facility] Active, Pending, and Scheduled Orders This section includes a listing of several types of active, pending, and scheduled orders, including clinic medications orders, diagnostic test orders, procedure orders and consult orders; where the start date of the order is 45 days before the date of the Encounter or 45 days after the date of the Encounter. The data comes from all [facility]. Test Date/Time Test Type Test Details Facility Name Jul 20, 2021 12:00 AM Laboratory - Chemistry CBC NO DIFF [facility] Order BLOOD(LAV-EDTA) [facility] Jul 20, 2021 12:00 AM Laboratory - Chemistry P4 [facility] Order GLU,BUN,CREAT,LYTES, [facility] CA LT GREEN(LI HEP) PLASMA Jul 20, 2021 12:00 AM Laboratory - Chemistry PT&INR BLOOD(BLUE-N A [place] T Order CIT) PLASMA [facility] Social History: Smoking Status (Most current) and Tobacco Use (All prior to encounter date) This section includes the most current, and the historical, smoking and tobacco-related health factors from the [place] facility where the Encounter took place.Current Smoking Status This section includes the most current smoking, or tobacco-related health factor, from the [place] facility where the Encounter took place. Date/Time Current Smoking Status [facility] Facility March 15, 2021 10:00 AM [place]-TOBACCO NEVER USED [facility] Tobacco Use History This section includes a history of the smoking, or tobacco-related health factors, that were collected on or before the date of the Encounter. The data comes from the [place] facility where the Encounter took place. Date/Time Smoking Status/Tobacco Use Comment Trista swenson Jul 17, 2020 11:00 AM VA-TOBACCO FORMER USER [place] [facility] Jul 17, 2020 11:00 AM VA-TOBACCO QUIT 15 YRS OR MORE [facility] [place] [facility] Jul 19, 2019 10:33 AM VA-TOBACCO NEVER USED [place] [facility] Jul 20, 2018 10:33 AM QUIT TOBACCO USE > 7 YEARS AGO [facility] [place] [facility] Dec 23, 2016 10:27 AM LIFETIME NON-TOBACCO USER [place] [facility] Nov 26, 2015 11:35 AM QUIT TOBACCO USE > 7 YEARS AGO [place] [facility] May 19, 2005 08:38 AM LIFETIME NON-SMOKER [place] [facility] Apr 23, 2004 11:39 AM LIFETIME NON-SMOKER [place] [facility] May 15, 2003 10:08 AM LIFETIME NON-SMOKER [place] [facility] Dec 31, 2001 04:36 PM LIFETIME NON-SMOKER [facility] [place] [facility] Advance Directives: All historical and current Section Date Range: From patient's date of to the date document was created. This section includes ALL of a patient's completed or amended [place] Advance and Rescinded Directives. The entries below indicate that a directive exists for the patient, but an actual copy is not included with this document. The data comes from all [place] facilities. Date Advance Directives Provider Source Jun 05, 2017 ADVANCE DIRECTIVE LILLIAM DEGROOT ROSANGELA T [facility] Encounter Notes: All associated encounter notes This section contains the clinical notes associated to the Encounter. Date/Time Encounter Note(s) Provider Source Jun 22, 2021 09:14 AM MEDICATION MGT NOTE: DARIAN NAZARIO Altagracia [place] LOCAL TITLE: OPIOID/CONTROLLED SUBSTANCE RENEWA L NOTE [facility] STANDARD TITLE: MEDICATION MGT NOTE DATE OF NOTE: JUN 22, 2021@09:14 ENTRY DATE: JUN 22, 2021@09:14:58 AUTHOR: DARIAN NAZARIO EXP COSIGNER: URGENCY: STATUS: COMPLETED Standard Opioid Renewal/Controlled Substance Not e Requested Medication: CODEINE 30/ACETAMINOPHEN 3 00MG TAB Mail to patient A Valid Consent for Long-Term Opioids for Pain i s on file and available for viewing in [facility] [employer] [employer]. CONSENT FOR LONG-T ERM OPIOIDS FOR PAIN Feb 03, 2015 A State Prescription Drug Monitoring Program (SP DMP) Review Note has been documented in the medical r ecord at least once in the last 12 months or as requir ed by state law. STATE PRESCRIPTION DRUG MONITORING PROGRAM (SPDM P) NOTE Feb 12, 2021 Drug Screen Urine Tox Screen 10 Months Collection DT Specimen Test Name Result Units Ref Range 03/15/2021 11:43 URINE !! COCAINE SCREEN NO NE DETECTED Ref: NONE-DETECTED, CUTOFF= 300 ng/mL 03/15/2021 11:43 URINE !! BENZODI NO NE DETECTED Ref: NONE-DETECTED, CUTOFF= 200 ng/mL 03/15/2021 11:43 URINE !! OPIATES SCREEN NO NE DETECTED Ref: NONE-DETECTED, CUTOFF= 300 ng/mL 03/15/2021 11:43 URINE !! CR RAN 335.7 mg/dL 03/15/2021 11:43 URINE !! CANNABINOID SCRN NO NE DETECTED Ref: NONE-DETECTED, CUTOFF= 50 ng/mL 03/15/2021 11:43 URINE !! AMPHETAMINE SCRN NO NE DETECTED Ref: NONE-DETECTED, CUTOFF= 1000 ng/mL 03/15/2021 11:43 URINE !! pH BRIAN 5.1 4.0 - 10.0 03/15/2021 11:43 URINE !! OXYSCNU NO NE DETECTED Ref: NONE-DETECTED, QZFKLE=954qf/mL 03/15/2021 11:43 URINE !! METHADONE NO NE DETECTED Ref: NONE-DETECTED, HBNKWG=136ew/mL 03/15/2021 11:43 URINE !! ETOH URINE <10.0 mg/dL NEG 03/15/2021 11:43 URINE !! BUPREN NO NE DETECTED Ref: NONE-DETECTED, CUT-OFF=10ng/mL !! Indicates COMMENTS AVAILABLE...Refer to Inte rim Lab Report. /marlo/ DARIAN NAZARIO Signed: 06/22/2021 09:15 Receipt Acknowledged By: * AWAITING SIGNATURE * BARRINGTON ANDERSON * AWAITING SIGNATURE * MAGDY SALAZAR
--- OUTSIDE RECORDS SUMMARY | 2021-07-26 06:22 | XMS_ITS ---
:1950 Author Organization Department [facility] Address [address] [place] [address] Care Team Providers Name Role Phone BARRINGTON [...] MEDICARE MEDICARE PART May 06, PART A [id number] CHYNATYRESE PATIENT (WNR) (M) A 2013 DE63 2 BBI MEDICARE MEDICARE PART May 06, PART B [id number] TYRESE CLEMENTE PATIENT (WNR) (M) B 2013 DE63 2 BBI [facility]ILY [facility] Nov 06, WNR [id number] [phone] TYRESE CLEMENTE PATIENT HEALTH [facility](W 2017 3800 364 BBI PLAN NR) FAMILY [facility] Nov 06, [id number] [phone] TYRESE RIOJAS PATIENT [facility] 2017 [id number] 364 BBI PLAN [place] Selected Encounter This section includes the information on record at [place] for the Encounter. Date/Time Encounter Type Encounter Reason Provider Source Description Jul 20, 2021 OFFICE O/P EST GENERAL INTERNAL ICD-10-CM F64.1 ARACELY HENDRICKS 03:00 PM HI 40-54 MIN MEDICINE Dual role transvestism with Provider Comments: Gender dysphoria ([facility] [id number]) IHE Encounter Template Text not used by VA Assessments - Encounter Diagnoses This section includes the primary and secondary diagnoses documented forthe Encounter. Date/Time Primary/Secondary Diagnosis Name Provider Source Diagnosis Jul 20, 2021 PRIMARY Dual role EDGAR HENDRICKS 03:48 PM transvestism [facility] Plan of Treatment: Future Appointments (+ 6 months) and Future Tests (+/- 45 days) The Plan of Treatment section includes future care activities for the patient from all [place] treatment facilities. This section includes future appointments and future orders which are active, pending or scheduled.Future Appointments This section includes appointments that were scheduled to occur 6 months from the date of the Encounter, up to a maximum of 20 appointments. The data comes from all [facility]. Appointment Date/Time Appointment Type Appointment Facili [...] the Encounter. The data comes from all [place] treatment facilities. Test Date/Time Test Type Test Details Facility Name Jul 20, 2021 12:00 AM Laboratory - Chemistry CBC NO DIFF [facility] Order BLOOD(LAV-EDTA) SP [facility] Jul 20, 2021 12:00 AM Laboratory - Chemistry P4 [facility] Order [facility]BUN[facility]CREAT[facility]LI [facility] PLASMA SP Jul 20, 2021 12:00 AM Laboratory - Chemistry PT&INR BLOOD(BLUE-N A [facility] [employer] [place] T Order CIT) PLASMA [facility] Vital Signs: All taken on the encounter date This section contains inpatient and outpatient Vital Signs collected on the date of the Encounter. Date/Time Temperature Pulse Blood Respiratory SP02 Pain Height Weight Tyrese dy Source Pressure Rate Mass Index Jul 20 98.3 F 91 139/64 16 /min 98 % 0 170 lb 23 WHITE 2020 03:05 /min mm[Hg] [facility] Social History: Smoking Status (Most current) and Tobacco Use (All prior to encounter date) This section includes the most current, and the historical, smoking and tobacco-related health factors from the [place] facility where the Encounter took place.Current Smoking Status This section includes the most current smoking, or tobacco-related health factor, from the [place] facility where the Encounter took place. Date/Time Current Smoking Status Comment Facility March 15, 2021 10:00 AM VA-TOBACCO NEVER USED [place] [facility] Tobacco Use History This section includes a history of the smoking, or tobacco-related health factors, that were collected on or before the date of the Encounter. The data comes from the [place] facility where the Encounter took place. Date/Time Smoking Status/Tobacco Use Comment [facility] Jul 17, 2020 11:00 AM VA-TOBACCO FORMER USER [place] [facility] Jul 17, 2020 11:00 AM VA-TOBACCO QUIT 15 YRS OR MORE [facility] Jul 19, 2019 10:33 AM VA-TOBACCO NEVER USED [place] [facility] Jul 20, 2018 10:33 AM QUIT TOBACCO USE > [address] [facility] Dec 23, 2016 10:27 AM LIFETIME NON-TOBACCO USER [place] [facility] Nov 26, 2015 11:35 AM QUIT TOBACCO USE > 7 YEARS AGO [place] [facility] May 19, 2005 08:38 AM LIFETIME NON-SMOKER [place] [facility] Apr 23, 2004 11:39 AM LIFETIME NON-SMOKER [place] [facility] May 15, 2003 10:08 AM LIFETIME NON-SMOKER [place] [facility] Dec 31, 2001 04:36 PM LIFETIME NON-SMOKER [place] [facility] Advance Directives: All historical and current Section Date Range: From patient's date of to the date document was created. This section includes ALL of a patient's completed or amended [place] Advance and Rescinded Directives. The entries below indicate that a directive exists for the patient, but an actual copy is not included with this document. The data comes from all [place] facilities. Date Advance Directives Provider Source Jun 05, 2017 ADVANCE DIRECTIVE LILLIAM DEGROOT [facility] Encounter Notes: All associated encounter notes This section contains the clinical notes associated to the Encounter. Date/Time Encounter Note(s) Provider Source Jul 20, 2021 03:17 PM RISK ASSESSMENT SCREENING NOTE: HARIKA HENDRICKS [facility] LOCAL TITLE: Consult - Preoperative Risk Assess ment [facility] STANDARD TITLE: RISK ASSESSMENT SCREENING NOTE DATE OF NOTE: JUL 20, 2021@15:17 ENTRY DATE: JUL 20, 2021@15:17:12 AUTHOR: DEGAR HENDRICKS EXP COSIGNER: URGENCY: STATUS: COMPLETED PROPOSED SURGERY: Cataracts, at [facility] on 07/26, OD on 08/09, by ?? ([place] did not know the name of her surgeon); in [facility]. MAJOR PATIENT SPECIFIC SURGICAL RISK FACTORS: CAD: absent CHF: absent DM requiring insulin: absent CHRONIC RENAL INSUFFICIENCY with creat 2.0 or gr eater: absent CVA: absent PREDICTORS OF PERIOPERATIVE COMPLICATIONS: Advanced age (greater than 70 years of age) Age: 71 - Yes Abnormal ECG (left ventricular hypertrophy, left bundle branch block, ST-T wave abnormalities) - No Rhythm other than sinus (such as atrial fibrilla tion) - No Uncontrolled systolic hypertension - No ACTIVE MEDICAL PROBLEMS: 1. Nail dystrophy 2. Atherosclerosis of artery of lower limb 3. Bilateral acquired hallux limitus of great t oes 4. Acquired deflected nasal septum 5. Multiple benign melanocytic nevi 6. Dysplastic nevus of skin 7. Seborrheic Keratosis 8. Hematuria 9. Gender dysphoria 10. 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 Depressive Disorder Nec ACTIVE MEDICATIONS 1) ATORVASTATIN CALCIUM 40MG TAB TAKE ONE TABL ET BY ACTIVE MOUTH EVERY DAY TO LOWER CHOLESTEROL 2) CARBOXYMETHYLCELLULOSE NA 0.5%(PF)OP KENDALL IN STILL ONE ACTIVE DROP IN BOTH EYES TWO TO FOUR TIMES DAILY FOR DRYNESS 3) CODEINE 30/ACETAMINOPHEN 300MG TAB TAKE 1 T ABLET BY ACTIVE MOUTH EVERY FOUR HOURS NEEDED MAY TAKE ONE TO TWO TABLETS AT BEDTIME NEEDED FOR PAIN 4) FAMOTIDINE 20MG TAB TAKE ONE TABLET BY MOUT H AT ACTIVE BEDTIME FOR STOMACH ACID 5) GLIPIZIDE 10MG TAB TAKE ONE TABLET BY MOUTH TWICE A ACTIVE DAY FOR DIABETES 6) METFORMIN HCL 500MG 24HR SA TAB TAKE FOUR T ABLETS BY ACTIVE MOUTH EVERY DAY FOR DIABETES 1) Non-VA ASPIRIN 325MG EC TAB 325MG MOUTH FREDY DAY ACTIVE PREVIOUS SURGERY: There is no history of anesthe kieran or bleeding problems. EXERTIONAL CAPACITY: THIS PATIENTS CAPACITY IS: >5 MET's with out anabel st pain or excessive dyspnea. ETOH: One drink a week SMOKING: Never SOCIAL HISTORY: Living w/ spouse () PHYSICAL EXAM: BP: 139/64 PULSE: 91 O2 SAT: 98% HEENT - ESTRADA, EOMI, TM - WN L, AVTAR - clear pink moist, dentition - full plate on top, natural teeth on bottom - fair condition; N OLENA - (-); RESP - CTA; CVS - RRR; ABDO - SOFT NT ND, no guarding or rebound. EKG: NSR Does this patient require a preoperative Echocar diogram (dyspnea of unclear origin or known CHF with worsening dyspnea)? NO CHEST X-RAY: No Does this patient require a preop ETT (Patients with at least one clinical risk factor and poor functional capacity (<4 METS) wh o are scheduled for intermediate-risk surgery when such testing will tar heat exchanger cleaner)? No IMPRESSION: Per 2014 [employer] [employer] guidelines, the patient needs no further cardiac testing prior to surger y. National Surgical Quality Improvement Program Risk Calculator for this pat ient predicts: risk of serious complications 1%, card iac events < 1%, < 1%. The blood pressure is currently adequately contr olled. MEDICATION MANAGEMENT: No changes recommended. /es/ EDGAR HENDRICKS MD Signed: 07/20/2021 15:48
--- OUTSIDE RECORDS SUMMARY | 2021-07-26 06:22 | XMS_ITS ---
:[address] [facility] Address [address] [place] [address] Care Team Providers Name Role Phone BARRINGTON [...] MEDICARE MEDICARE PART May 06, PART A [id number] CLEMENTE ,TYRESE PATIENT (WNR) (M) A 2013 DE63 2 BBI MEDICARE MEDICARE PART May 06, PART B [id number] TYRESE CLEMENTE PATIENT (WNR) (M) B 2013 DE63 2 BBI [facility] USFA Nov 06, WNR [id number] [phone] TYRESE CLEMENTE PATIENT HEALTH SYED(W 2017 3800 364 BBI PLAN NR) [facility] Nov 06, [id number] [phone] TYRESE RIOJAS PATIENT HEALTH -MART 2017 [id number] 364 BBI PLAN [place] Selected Encounter This section includes the information on record at [place] for the Encounter. Date/Time Encounter Type Encounter Description Reason Provider Source May 25, 2021 11:28 Outpatient Encounter TELEPHONE TRIAGE AM IHE Encounter Template Text not used by [place] Plan of Treatment: Future Appointments (+ 6 months) and Future Tests (+/- 45 days) The Plan of Treatment section includes future care activities for the patient from all [place] treatment facilities. This section includes future appointments and future orders which are active, pending or scheduled.Future Appointments This section includes appointments that were scheduled to occur 6 months from the date of the Encounter, up to a maximum of 20 appointments. The data comes from all [facility] Appointment Date/Time Appointment Type Appointment Facili ty Name Jun 01, 2021 08:30 AM AMBULATORY - NONE [facility] Jul 20, 2021 03:00 PM AMBULATORY - MEDICINE [facility] Sep 13, 2021 10:00 AM AMBULATORY - MEDICINE [facility] Active, Pending, and Scheduled Orders This section includes a listing of several types of active, pending, and scheduled orders, including clinic medications orders, diagnostic test orders, procedure orders and consult orders; where the start date of the order is 45 days before the date of the Encounter or 45 days after the date of the Encounter. The data comes from all [facility]. Test Date/Time Test Type Test Details Facility Name May 07, 2021 01:57 PM Consult Order PODIATRY OUTPATIENT Cons W LAZARO [facility] Diver[facility] Social History: Smoking Status (Most current) and Tobacco Use (All prior to encounter date) This section includes the most current, and the historical, smoking and tobacco-related health factors from the [place] facility where the Encounter took place.Current Smoking Status This section includes the most current smoking, or tobacco-related health factor, from the [place] facility where the Encounter took place. Date/Time Current Smoking Status Comment Facility March 15, 2021 10:00 AM VA-TOBACCO NEVER USED WHIT Ruth [facility] Tobacco Use History This section includes a history of the smoking, or tobacco-related health factors, that were collected on or before the date of the Encounter. The data comes from the [place] facility where the Encounter took place. Date/Time Smoking Status/Tobacco Use Comment Facil ity Jul 17, 2020 11:00 AM VA-TOBACCO FORMER USER WHI BENI [facility] Jul 17, 2020 11:00 AM [place]-TOBACCO QUIT 15 YRS OR MORE [facility] Jul 19, 2019 10:33 AM VA-TOBACCO NEVER USED RAFITA ESTRADA [facility] Jul 20, 2018 10:33 AM QUIT TOBACCO USE > 7 YEARS AGO [facility] Dec 23, 2016 10:27 AM LIFETIME NON-TOBACCO USER [facility] Nov 26, 2015 11:35 AM QUIT TOBACCO USE > 7 YEARS AGO [facility] May 19, 2005 08:38 AM LIFETIME NON-SMOKER [facility] [place] [facility] Apr 23, 2004 11:39 AM LIFETIME NON-SMOKER [facility] [place] [facility] May 15, 2003 10:08 AM LIFETIME NON-SMOKER [facility] [place] [facility] Dec 31, 2001 04:36 PM LIFETIME NON-SMOKER [facility] [place] [facility] Advance Directives: All historical and current Section Date Range: From patient's date of to the date document was created. This section includes ALL of a patient's completed or amended [place] Advance and Rescinded Directives. The entries below indicate that a directive exists for the patient, but an actual copy is not included with this document. The data comes from all [place] facilities. Date Advance Directives Provider Source Jun 05, 2017 ADVANCE DIRECTIVE ZANELILLIAM Ruth ADAMES T [facility] Encounter Notes: All associated encounter notes This section contains the clinical notes associated to the Encounter. Date/Time Encounter Note(s) Provider Source May 25, 2021 11:28 AM TELEPHONE ENCOUNTER NOTE: LATASHA DOS SANTOS [facility] LOCAL TITLE: VISN 1 CCC ACTION REQUIRED [facility] STANDARD TITLE: TELEPHONE ENCOUNTER NOTE DATE OF NOTE: MAY 25, 2021@11:28:06 ENTRY DATE: MAY 25, 2021@11:32:01 AUTHOR: LATASHA DOS SANTOS EXP COSIGNER: URGENCY: STATUS: COMPLETED VISN 1 CCC ACTION REQUIRED Has ADDENDA * Type of call: CLINICAL INFORMATION/EDUCATION. Caller Response: ADM CALL RESOLVED The patient, MACARENA CLEMENTE ([id number]) called the call center. Comments: Please call patient at [phone] to let him k now where his newly ordered glasses are. He is starting to get headaches wi thout them. Thank you. Evaluation/Management Code: HC PRO PHONE CALL 5- 10 MIN ([id number]). Starting at: 05/25/2021 @ 11:28:06 AM Ending at: 05/25/2021 @ 11:30:29 AM Length: 2 minutes. Author: LATASHA DOS SANTOS Caller Area: * [place] The following identifiers were used to verify th is patient: SSN. Other: address. Chief Complaint: Not applicable to call. Class Code: Other specified counseling. Contact Patient's Email Address: /es/ LATASHA DOS SANTOS Signed: 05/25/2021 11:32 Receipt Acknowledged By: * AWAITING SIGNATURE * KEVIN WILDER 05/25/2021 13:07 /marlo/ MAKAYLA SPENCE 05/25/2021 ADDENDUM STATUS: COMPLETED Glasses were just ordered on 05/25/21 and take 3 - 4 weeks normally, I did request a FREEMAN so hopefully they will be able to expedite! /marlo/ MAKAYLA SPENCE Signed: 05/25/2021 13:07
--- OUTSIDE RECORDS SUMMARY | 2021-07-26 06:23 | XMS_ITS | Encounter Summary ---
:1950 [address] [facility] Address [address] [place] [address] Care Team Providers Name Role Phone BARRINGTON [...] MEDICARE MEDICARE PART May 06, PART A [id number] CLEMENTE TYRESE PATIENT (WNR) (M) A 2013 DE63 2 BBI MEDICARE MEDICARE PART May 06, PART B [id number] TYRESE CLEMENTE PATIENT (WNR) (M) B 2013 DE63 2 BBI [facility] USFA Nov 06, WNR [id number] [phone] TYRESE CLEMENTE PATIENT HEALTH SYED(W 2017 3800 364 BBI PLAN NR) [facility] Nov 06, [id number] [phone] TYRESE RIOJAS PATIENT HEALTH -[facility] 2017 [id number] 364 BBI PLAN [place] Selected Encounter This section includes the information on record at [place] for the Encounter. Date/Time Encounter Type Encounter Description Reason Provider Source May 04, 2021 03:57 Outpatient Encounter TELEPHONE PRIMARY PM CARE IHE Encounter Template Text not used by [place] Plan of Treatment: Future Appointments (+ 6 months) and Future Tests (+/- 45 days) The Plan of Treatment section includes future care activities for the patient from all [place] treatment facilities. This section includes future appointments and future orders which are active, pending or scheduled.Future Appointments This section includes appointments that were scheduled to occur 6 months from the date of the Encounter, up to a maximum of 20 appointments. The data comes from all [facility]. Appointment Date/Time Appointment Type Appointment Facili ty Name Jun 01, 2021 08:30 AM AMBULATORY - NONE [facility] Jul 20, 2021 03:00 PM AMBULATORY - MEDICINE [facility] Sep 13, 2021 10:00 AM AMBULATORY - MEDICINE [facility] Active, Pending, and Scheduled Orders This section includes a listing of several types of active, pending, and scheduled orders, including clinic medications orders, diagnostic test orders, procedure orders and consult orders; where the start date of the order is 45 days before the date of the Encounter or 45 days after the date of the Encounter. The data comes from all [facility]. Test Date/Time Test Type Test Details Facility Name March 22, 2021 01:16 PM Consult Order COMMUNITY CARE-OPHTH [facility] SURGICAL Cons Cafeteria Or Lunchroom Checker's Choice May 07, 2021 01:57 PM Consult Order PODIATRY OUTPATIENT Cons [facility] Cafeteria Or Lunchroom [facility] Social History: Smoking Status (Most current) and Tobacco Use (All prior to encounter date) This section includes the most current, and the historical, smoking and tobacco-related health factors from the [place] facility where the Encounter took place.Current Smoking Status This section includes the most current smoking, or tobacco-related health factor, from the [place] facility where the Encounter took place. Date/Time Current Smoking Status Comment Facility March 15, 2021 10:00 AM VA-TOBACCO NEVER USED RAFITA E [facility] Tobacco Use History This section includes a history of the smoking, or tobacco-related health factors, that were collected on or before the date of the Encounter. The data comes from the [place] facility where the Encounter took place. Date/Time Smoking Status/Tobacco Use Comment Facil ity Jul 17, 2020 11:00 AM VA-TOBACCO [facility]ER [facility] Jul 17, 2020 11:00 AM VA-TOBACCO QUIT 15 YRS OR MORE [facility] Jul 19, 2019 10:33 AM VA-TOBACCO NEVER USED RAFITA [facility] Jul 20, 2018 10:33 AM QUIT TOBACCO USE > 7 YEARS AGO [facility] Dec 23, 2016 10:27 AM LIFETIME NON-TOBACCO USER [facility] Nov 26, 2015 11:35 AM QUIT TOBACCO USE > 7 YEARS AGO [facility] May 19, 2005 08:38 AM LIFETIME NON-SMOKER [facility] [place] [facility] Apr 23, 2004 11:39 AM LIFETIME NON-SMOKER [facility] [place] [facility] May 15, 2003 10:08 AM LIFETIME NON-SMOKER [facility] [place] [facility] Dec 31, 2001 04:36 PM LIFETIME NON-SMOKER [facility] Advance Directives: All historical and current Section Date Range: From patient's date of to the date document was created. This section includes ALL of a patient's completed or amended [place] Advance and Rescinded Directives. The entries below indicate that a directive exists for the patient, but an actual copy is not included with this document. The data comes from all [place] facilities. Date Advance Directives Provider Source Jun 05, 2017 ADVANCE DIRECTIVE DEGROOTLILLIAM Ruth [facility] Encounter Notes: All associated encounter notes This section contains the clinical notes associated to the Encounter. Date/Time Encounter Note(s) Provider Source May 04, 2021 03:57 PM MEDICATION MGT NOTE: MAGDY SALAZAR [facility] LOCAL TITLE: OPIOID/CONTROLLED SUBSTANCE RENEWA L NOTE [facility] STANDARD TITLE: MEDICATION MGT NOTE DATE OF NOTE: MAY 04, 2021@15:57 ENTRY DATE: MAY 04, 2021@15:57:56 AUTHOR: MAGDY SALAZAR EXP COSIGNER: URGENCY: STATUS: COMPLETED OPIOID/CONTROLLED SUBSTANCE RENEWAL NOTE Has ADDENDA Standard Opioid Renewal/Controlled Substance Not e Requested Medication: CODEINE 30/ACETAMINOPHEN 300MG TAB TAKE 1 TABLET BY MOUTH EVERY FOUR HOURS NEEDED FOR PAIN. MAY TAKE 2 TABS AT BEDTIME FOR SEVERE PAIN. Mail to patient A Valid Consent for Long-Term Opioids for Pain i s on file and available for viewing in [facility]. CONSENT FOR LONG-T ERM OPIOIDS FOR PAIN Feb 03, 2015 A State Prescription Drug Monitoring Program (SP DMP) Review Note has been documented in the medical r ecord at least once in the last 12 months or as requir ed by state law. STATE PRESCRIPTION DRUG MONITORING PROGRAM (SPDM P) NOTE Feb 12, 2021 [place] Prescription Monitoring Program ([place] EVP BUSINESS DEVELOPMENT) checked today. [place] Prescription Monitoring Program ([place] EVP BUSINESS DEVELOPMENT) checked today. Drug Screen Urine Tox Screen 10 Months [...] !! OXYSCNU NO NE DETECTED Ref: NONE-DETECTED, TEATWD=255tw/mL 03/15/2021 11:43 URINE !! METHADONE NO NE DETECTED Ref: NONE-DETECTED, EKLEHH=408gz/mL 03/15/2021 11:43 URINE !! ETOH URINE <10.0 mg/dL NEG 03/15/2021 11:43 URINE !! BUPREN NO NE DETECTED Ref: NONE-DETECTED, CUT-OFF=10ng/mL !! Indicates COMMENTS AVAILABLE...Refer to Inte rim Lab Report. /amrlo/ MAGDY SALAZAR Registered Nurse Signed: 05/04/2021 16:00 Receipt Acknowledged By: * AWAITING SIGNATURE * BARRINGTON ANDERSON 05/07/2021 ADDENDUM STATUS: COMPLETED Reviwed chart and last note Appears taking only at night. Urine negative for opiates, uncertain of last do se. REcommend repeat screen in next at next refill a nd note when taken last dose /es/ Cheyenne Owens MSN,BREWMASTER Nurse Practitioner Faculty Signed: 05/07/2021 13:53
--- OUTSIDE RECORDS SUMMARY | 2021-07-26 06:23 | XMS_ITS | Encounter Summary ---
:1950 Author Organization Department [facility] Address [address] [place] [address] Care Team Providers Name Role Phone BARRINGTON [...] MEDICARE MEDICARE PART May 06, PART A [id number] CLEMENTE ,TYRESE PATIENT (WNR) (M) A 2013 DE63 2 BBI MEDICARE MEDICARE PART May 06, PART B [id number] TYRESE CLEMENTE PATIENT (WNR) (M) B 2013 DE63 2 BBI [facility] USFA Nov 06, WNR [id number] TYRESE CLEMENTE PATIENT HEALTH SYED(W 2017 3800 364 BBI PLAN NR) [facility] Nov 06, [id number] [phone] TYRESE RIOJAS PATIENT [facility]ALTH -[facility] 2017 [id number] 364 BBI PLAN [place] Selected Encounter This section includes the information on record at [place] for the Encounter. Date/Time Encounter Type Encounter Description Reason Provider Source May 04, 2021 12:04 Outpatient Encounter TELEPHONE TRIAGE PM IHE Encounter Template Text not used by [place] Plan of Treatment: Future Appointments (+ 6 months) and Future Tests (+/- 45 days) The Plan of Treatment section includes future care activities for the patient from all [place] treatment facilities. This section includes future appointments and future orders which are active, pending or scheduled.Future Appointments This section includes appointments that were scheduled to occur 6 months from the date of the Encounter, up to a maximum of 20 appointments. The data comes from all [facility]. Appointment Date/Time Appointment Type Appointment Facili ty Name Jun 01, 2021 08:30 AM AMBULATORY - NONE [facility] Jul 20, 2021 03:00 PM AMBULATORY - MEDICINE [facility] Sep 13, 2021 10:00 AM AMBULATORY - MEDICINE [facility] Active, Pending, and Scheduled Orders This section includes a listing of several types of active, pending, and scheduled orders, including clinic medications orders, diagnostic test orders, procedure orders and consult orders; where the start date of the order is 45 days before the date of the Encounter or 45 days after the date of the Encounter. The data comes from all [facility]. Test Date/Time Test Type Test Details Facility Name March 22, 2021 01:16 PM Consult Order COMMUNITY CARE-OPHTH [facility] SURGICAL Cons Die [facility]izer[facility] Choice May 07, 2021 01:57 PM Consult Order PODIATRY OUTPATIENT Cons W LAZARO [facility] Die [facility] Social History: Smoking Status (Most current) and Tobacco Use (All prior to encounter date) This section includes the most current, and the historical, smoking and tobacco-related health factors from the [place] facility where the Encounter took place.Current Smoking Status This section includes the most current smoking, or tobacco-related health factor, from the [place] facility where the Encounter took place. Date/Time Current Smoking Status Comment Facility March 15, 2021 10:00 AM VA-TOBACCO NEVER USED WHIT E [facility] Tobacco Use History This section includes a history of the smoking, or tobacco-related health factors, that were collected on or before the date of the Encounter. The data comes from the [place] facility where the Encounter took place. Date/Time Smoking Status/Tobacco Use Comment Facil ity Jul 17, 2020 11:00 AM VA-TOBACCO FORMER USER WHI TE [facility] Jul 17, 2020 11:00 AM VA-TOBACCO QUIT 15 YRS OR MORE [facility] Jul 19, 2019 10:33 AM VA-TOBACCO NEVER USED RAFITA [place] [facility] Jul 20, 2018 10:33 AM QUIT TOBACCO USE > 7 YEARS AGO [facility] Dec 23, 2016 10:27 AM LIFETIME NON-TOBACCO USER [facility] Nov 26, 2015 11:35 AM QUIT TOBACCO USE > 7 YEARS AGO [facility] [place] [facility] May 19, 2005 08:38 AM LIFETIME NON-SMOKER [facility] [place] [facility] Apr 23, 2004 11:39 AM LIFETIME NON-SMOKER [facility] [place] [facility] May 15, 2003 10:08 AM LIFETIME NON-SMOKER [facility] [place] [facility] Dec 31, 2001 04:36 PM LIFETIME NON-SMOKER [facility] [place] [facility] Advance Directives: All historical and current Section Date Range: From patient's date of to the date document was created. This section includes ALL of a patient's completed or amended [place] Advance and Rescinded Directives. The entries below indicate that a directive exists for the patient, but an actual copy is not included with this document. The data comes from all [place] facilities. Date Advance Directives Provider Source Jun 05, 2017 ADVANCE DIRECTIVE LILLIAM DEGROOT Ruth [facility] Encounter Notes: All associated encounter notes This section contains the clinical notes associated to the Encounter. Date/Time Encounter Note(s) Provider Source May 04, 2021 12:04 PM TELEPHONE ENCOUNTER NOTE: SHELLEY VITAL [facility] LOCAL TITLE: VISN 1 CCC ACTION REQUIRED [facility] STANDARD TITLE: TELEPHONE ENCOUNTER NOTE DATE OF NOTE: MAY 04, 2021@12:04:14 ENTRY DATE: MAY 04, 2021@12:07:06 AUTHOR: SHELLEY VITAL COSIGNER: URGENCY: STATUS: COMPLETED VISN 1 CCC ACTION REQUIRED Has ADDENDA * Type of call: PHARMACY. Caller Response: ADM CALL RESOLVED The patient, MACARENA CLEMENTE ([id number]) called the call center. Comments: Pt has been without Metformi n for 2 weeks now. Pharmacy is showing that it was mailed 2 weeks ago. Please call in a partial rx to the [facility] in [place] @ . If the original shipment was lost, pl ease send out a replacement lyssa. Pt is requesting a call back since it is a [address] for [address] to go to [facility] to pharmacy picking tech the partail. Evaluation/Management Code: HC PRO PHONE CALL 5- 10 MIN ([phone]). Starting at: 05/04/2021 @ 12:04:14 PM Ending at: 05/04/2021 @ 12:06:52 PM Length: 2 minutes. Author: SHELLEY VITAL Caller Area: * [place] The following identifiers were used to verify th is patient: SSN. Chief Complaint: Not applicable to call. Class Code: Other specified counseling. Contact Patient's Email Address: /marlo/ SHELLEY VITAL Advanced Toxicologist Signed: 05/04/2021 12:07 Receipt Acknowledged By: 05/04/2021 13:12 /marlo/ Cheyenne hutchinson MSN,RADIOGRAPHER CARDIAC CATHETERIZATION Nurse Practitioner Faculty for BARRINGTON SHAW R * AWAITING SIGNATURE * MAGDY SALAZAR 05/04/2021 12:13 /marlo/ CECILIO CHUNG Registered Nurse 05/04/2021 ADDENDUM STATUS: COMPLETED Called in RX as prescribed on med list one week supply to [facility] /marlo/ Cheyenne Owens MSN,RADIOGRAPHER CARDIAC CATHETERIZATION Nurse Practitioner Faculty Signed: 05/04/2021 13:13
--- OUTSIDE RECORDS SUMMARY | 2021-07-26 06:23 | XMS_ITS | Encounter Summary ---
:1950 Author Organization Department [facility] Address [address] [place] [id number] Care Team Providers Name Role Phone BARRINGTON [...] MEDICARE MEDICARE PART May 06, PART A [id number] CHYNATYRESE PATIENT (WNR) (M) A 2013 [id number] 2 [facility] MEDICARE MEDICARE PART May 06, PART B [id number] CLEMENTE TYRESE PATIENT (WNR) (M) B 2013 [id number] 2 [facility] FAMILY [facility] Nov 06, WNR [id number] [phone] TYRESE CLEMENTE PATIENT [facility]ALTH [facility](W 2017 [id number] B[facility] PLAN NR) US FAMILY [facility] Nov 06, [id number] [phone] TYRESE RIOJAS PATIENT [facility] 2017 [id number] [facility] PLAN [place] Selected Encounter This section includes the information on record at [place] for the Encounter. Date/Time Encounter Type Encounter Description Reason Provider Source May 06, 2021 10:18 Outpatient Encounter [facility] Encounter Template Text not used by [place] Plan of Treatment: Future Appointments (+ 6 months) and Future Tests (+/- 45 days) The Plan of Treatment section includes future care activities for the patient from all [place] treatment facilities. This section includes future appointments and future orders which are active, pending or scheduled.Future Appointments This section includes appointments that were scheduled to occur 6 months from the date of the Encounter, up to a maximum of 20 appointments. The data comes from all [facility]. Appointment Date/Time Appointment Type Appointment Facili ty Name Jun 01, 2021 08:30 AM AMBULATORY - NONE [facility] Jul 20, 2021 03:00 PM AMBULATORY - MEDICINE [facility] Sep 13, 2021 10:00 AM AMBULATORY - MEDICINE [facility] Active, Pending, and Scheduled Orders This section includes a listing of several types of active, pending, and scheduled orders, including clinic medications orders, diagnostic test orders, procedure orders and consult orders; where the start date of the order is 45 days before the date of the Encounter or 45 days after the date of the Encounter. The data comes from all [place] treatment facilities. Test Date/Time Test Type Test Details Facility Name March 22, 2021 01:16 PM Consult Order COMMUNITY CARE-OPHTH [facility] SURGICAL Cons Transportation Consultant's Choice May 07, 2021 01:57 PM Consult Order PODIATRY OUTPATIENT Cons [facility] Transportation Consultant's Choice Social History: Smoking Status (Most current) and Tobacco Use (All prior to encounter date) This section includes the most current, and the historical, smoking and tobacco-related health factors from the [place] facility where the Encounter took place.Current Smoking Status This section includes the most current smoking, or tobacco-related health factor, from the [place] facility where the Encounter took place. Date/Time Current Smoking Status Comment Facility March 15, 2021 10:00 AM RI-TOBACCO NEVER USED [facility] Tobacco Use History This section includes a history of the smoking, or tobacco-related health factors, that were collected on or before the date of the Encounter. The data comes from the [place] facility where the Encounter took place. Date/Time Smoking Status/Tobacco Use Comment Facil ity Jul 17, 2020 11:00 AM VA-TOBACCO FORMER USER [place] [place] [facility] Jul 17, 2020 11:00 AM VA-TOBACCO QUIT 15 YRS OR MORE [facility] [place] [facility] Jul 19, 2019 10:33 AM VA-TOBACCO NEVER USED [facility] [place] [facility] Jul 20, 2018 10:33 AM QUIT TOBACCO USE > 7 YEARS AGO [facility] [place] [facility] Dec 23, 2016 10:27 AM LIFETIME NON-TOBACCO USER [facility] [place] [facility] Nov 26, 2015 11:35 AM QUIT TOBACCO USE > 7 YEARS AGO [facility] [place] [facility] May 19, 2005 08:38 AM LIFETIME NON-SMOKER [place] [facility] Apr 23, 2004 11:39 AM LIFETIME NON-SMOKER [place] [facility] May 15, 2003 10:08 AM LIFETIME NON-SMOKER [place] [facility] Dec 31, 2001 04:36 PM LIFETIME NON-SMOKER [place] [facility] Advance Directives: All historical and current Section Date Range: From patient's date of to the date document was created. This section includes ALL of a patient's completed or amended [place] Advance and Rescinded Directives. The entries below indicate that a directive exists for the patient, but an actual copy is not included with this document. The data comes from all [place] facilities. Date Advance Directives Provider Source Jun 05, 2017 ADVANCE DIRECTIVE ZANELILLIAM Ruth [facility] Encounter Notes: All associated encounter notes This section contains the clinical notes associated to the Encounter. Date/Time Encounter Note(s) Provider Source May 06, 2021 10:19 AM PRIMARY CARE NOTE: MAGDY SALAZAR [facility] LOCAL TITLE: Primary Care Clinic Note [facility] STANDARD TITLE: PRIMARY CARE NOTE DATE OF NOTE: MAY 06, 2021@10:19 ENTRY DATE: MAY 06, 2021@10:19:07 AUTHOR: MAGDY SALAZAR EXP COSIGNER: URGENCY: STATUS: COMPLETED Patient called and stated sh e needed a new pair of boots and that she had called Podiatry to get them but they told her to call h er PCP to get a new consult. Patient has been getting boot from Podiatry for years and would like to just reorder the same boots that have been ordered in the past. /marlo/ MAGDY SALAZAR Registered Nurse Signed: 05/06/2021 10:22 Receipt Acknowledged By: * AWAITING SIGNATURE * BARRINGTON ANDERSON
--- OUTSIDE RECORDS SUMMARY | 2021-07-26 06:24 | XMS_ITS ---
:1950 Author Organization Department [facility] Address [address] [place] [id number] Care Team Providers Name Role Phone BARRINGTON [...] MEDICARE MEDICARE PART May 06, PART A [id number] CHYNATYRESE PATIENT (WNR) (M) A 2013 DE63 2 BBI MEDICARE MEDICARE PART May 06, PART B [id number] CLEMENTE TYRESE PATIENT (WNR) (M) B 2013 DE63 2 BBI FAMILY USFAM Nov 06, WNR [id number] [phone] TYRESE CLEMENTE PATIENT HEALTH SYDE(W 2017 [id number] BBI PLAN NR) FAMILY USFHP Nov 06, [id number] [phone] TYRESE RIOJAS PATIENT HEALTH -[facility] 2017 [id number] BBI PLAN INS PO[place] Selected Encounter This section includes the information on record at NH for the Encounter. Date/Time Encounter Type Encounter Reason Provider Source Description March 15, 2021 OFFICE O/P EST COMP [facility] ICD-10-CM E11.9 MADDIE MILAN 10:00 AM MINIMAL PROB Type 2 diabetes IDGET K mellitus without complications with Provider Comments: Type 2 Diabetes Mellitus without Complications IHE Encounter Template Text not used by [facility] Assessments - Encounter Diagnoses This section includes the primary and secondary diagnoses documented forthe Encounter. Date/Time Primary/Secondary Diagnosis Name Provider Source Diagnosis March 16, 2021 PRIMARY Hyperlipidemia, CASSY ANDERSON R 09:38 AM unspecified [place]GET [place] [facility] March 16, 2021 PRIMARY Type 2 diabetes RUDY FIZTGERALDE R 09:38 AM mellitus without A K [place]CT [facility] complications March 16, 2021 SECONDARY Dual role RUDY FITZGERALD 09:38 AM transvestism A [place] [facility] March 16, 2021 SECONDARY Insomnia, RUDY FITZGERALD 09:38 AM unspecified A K [place] [facility] March 16, 2021 SECONDARY Rash and other RUDY FITZGERALD 09:38 AM nonspecific skin A K [place]CT [facility] eruption Plan of Treatment: Future Appointments (+ 6 [...] appointments. The data comes from all [facility]. Appointment Date/Time Appointment Type Appointment Facili ty Name Apr 14, 2021 01:15 PM [facility] [place] [facility] Jun 01, 2021 08:30 AM [facility] - N[place] [facility] Jul 20, 2021 03:00 PM [place]IC[place] [facility] Sep 13, 2021 10:00 AM AMBULATORY - MEDICINE [place] [facility] Active, Pending, and Scheduled Orders This section includes a listing of several types of active, pending, and scheduled orders, including clinic medications orders, diagnostic test orders, procedure orders and consult orders; where the start date of the order is 45 days before the date of the Encounter or 45 days after the date of the Encounter. The data comes from all NH treatment facilities. Test Date/Time Test Type Test Details Facility Name March 22, 2021 01:16 PM Consult Order [facility]ICAL Cons Director Of Analytics's Choice Surgical Procedures: All associated to the encounter This section includes all Surgical Procedures and Surgical Procedure Notes associated to the Encounter.Surgical Procedures This section includes all Surgical Procedures associated to the Encounter.Surgical Procedure Date/Time Procedure Procedure Type Procedure Provider Source Qualifiers March 15, 2021 Immunization IMMUNIZATION [place] MARTA 10:00 AM Administration ADMIN [place] [facility] (Includes Percutaneous, Intradermal, Subcutaneous, or Intramuscular Injections); 1 Vaccine (single or Combination Vaccine/Toxoid) Surgical Notes There are no notes associated with this procedure. Lab Results: +/- 30 days of the encounter This section includes the Chemistry and Hematology Lab Results on record with [facility] for the patient. Radiology Reports and Pathology Reports are provided separately, in subsequent sections.Lab Results This section contains the Chemistry/Hematology Results that were resulted 30 days before or 30 days after the date of the Encounter. Date/Time Source Result Type Result - Unit Interpretation Reference Range Comment March 15, 2021 [facility] MICRO[facility]BUMIN/CREATININE RATIO Specimen Type: URINE 11:43 AM [facility] PANEL Comment: Tests performed on [employer] (405) SN:[id number] Ordering Provider: ISREAL FITZGERALD Report Released Date/Time: March 15, 2021 10:51 AM Reporting Lab: [facility] [address] [facility] [address] Performing Lab: [facility] [address] [place] [facility] [place] [address] CREATININE (URINE,RANDOM) 335.7 mg/dL MICROALBUMIN, QUANTITATIVE 1.5 mg/dL 0.0 -29.9 MICROALBUMIN/CREATININE RATIO 4.5 mg/g 0.0-29.9 March 15, 2021 11:43 AM [facility] VITAMIN B-12 Specimen Type: SERUM [facility] Comment: Tests performed on [employer] (405) SN:[id number] Results checked Ordering Provider: ISREAL FITZGERALD Report Released Date/Time: March 15, 2021 10:51 AM Reporting Lab: [facility] [address] [place] [facility] [place] [address] Performing Lab: [facility] [address] [facility] [address] VITAMIN B-12 173 pg/mL L 200-900 March 15, 2021 11:43 [facility] VIT D 25-OH([facility]) Specimen Type: SERUM AM [facility] Comment: Tests performed on [employer] (405) SN:[id number] Results checked Ordering Provider: ISREAL FITZGERALD Report Released Date/Time: March 15, 2021 10:51 AM Reporting Lab: [facility] [address] [facility] [address] Performing Lab: [facility] [address] [facility] [address] VIT D 25-OH([facility]) 14.5 ng/mL L 20-50 March 15, 2021 [facility] GLYCOHEMOGLOBIN (A1C ONLY) Specimen Type: BLOOD 11:43 AM [facility] Comment: Tests performed on [employer] (405) SN:[id number] Ordering Provider: ISREAL FITZGERALD Report Released Date/Time: March 15, 2021 10:51 AM Reporting Lab: [facility] [address] [facility] [address] Performing Lab: [facility] [address] [facility] [address] HEMOGLOBIN A1C 8.1 % H 4.0-5.6 March 15, 2021 11:43 [facility] DRUG SCREEN([facility]) Specimen Type: URINE AM [facility] Comment: Tests performed on [employer] (405) SN:[id number] Ordering Provider: ISREAL FITZGERALD Report Released Date/Time: March 15, 2021 10:51 AM Reporting Lab: [facility] [address] [facility] [address] Performing Lab: [place] [facility] [address] [facility] [address] COCAINE SCREEN NONE DETECTED NONE-DETECT ED, CUTOFF= 300 ng/mL BENZODIAZEPINES SCREEN NONE DETECTED NON E-DETECTED, CUTOFF= 200 ng/mL OPIATES SCREEN NONE DETECTED NONE-DETECT ED, CUTOFF= 300 ng/mL CREATININE (URINE,RANDOM) 333.3 mg/dL CANNABINOID SCRN NONE DETECTED NONE-DETE CTED, CUTOFF= 50 ng/mL AMPHETAMINE SCRN NONE DETECTED NONE-DETE CTED, CUTOFF= 1000 ng/mL OXYCODONE SCREEN URINE([facility]) NONE DETECTED NONE-DETECTED, NDPRBE=522su/mL ETOH URINE <10.0 mg/dL NEGATIVE-10.0 BUPRENORPHINE SCREEN URINE(wrj) NONE DETECTED NONE-DETECTED, CUT METHADONE SCREEN(wrj) NONE DETECTED NONE -DETECTED, SVQWKI=758vh/mL pH BRIAN 5.1 4.0-10.0 SPECIFIC GRAVITY BRIAN 1.029 g/mL H 1.003-1. 020 FENTANYL(WRJ)URINE SCREEN NONE DETECTED NONE DETECTED, CUTOFF=1.0ng/mL March 15, 2021 [facility] P4 GLU,BUN,CREAT,LYTES,CA Specimen Type: PLASMA 11:43 AM [facility] Comment: Tests performed on [employer] (405) SN:[id number] Ordering Provider: ISREAL FITZGERALD Report Released Date/Time: March 15, 2021 10:51 AM Reporting Lab: [employer] T [facility] [address] [facility] [address] Performing Lab: [facility] [address] [facility] [address] UREA NITROGEN 12 mg/dL 7-25 SODIUM 141 mmol/L 135-145 POTASSIUM 4.7 mmol/L 3.5-5.0 CHLORIDE 106 mmol/L 100-110 CARBON DIOXIDE 26 mmol/L 20-30 ANION GAP 9 mmol/L 4-16 GLUCOSE 169 mg/dL H 65-100 CREATININE 0.95 mg/dl 0.5-1.5 CALCIUM 9.1 mg/dL 8.5-10.5 eGFR 58 mL/min L >60 March 15, 2021 [facility] LIPOPROTEIN CHOLESTEROL Specimen Type: PLASMA 11:43 AM [facility] FRACT. PANEL Comment: Tests performed on [employer] (405) SN:[id number] Ordering Provider: ISREAL FITZGERALD Report Released Date/Time: March 15, 2021 10:51 AM Reporting Lab: [employer] [facility] [address] [facility] [address] Performing Lab: [facility] [employer] [facility] [facility] [address] [facility] [address] CHOLESTEROL 207 mg/dL H 0-199 TRIGLYCERIDE 136 mg/dL 0-149 HDL CHOLESTEROL 44 mg/dL >40 LDL CHOLESTEROL (CALC) 136 mg/dl H 0-129 Vital Signs: All taken on the encounter date This section contains inpatient and outpatient Vital Signs collected on the date of the Encounter. Date/Time Temperature Pulse Blood Respiratory SP02 Pain Height Weight Tyrese dy Source Pressure Rate Mass Index March 15, 98.6 F 83 138/86 14 /min 97 % 0 174.25 24 WHITE 2020 09:56 /min mm[Hg] lb [facility] Immunizations: All administered on the encounter date This section contains immunizations associated to the Encounter. Immunization Series Date Issued Reaction Comments ZOSTER RECOMBINANT 1 March 15, 2021 Social History: Smoking Status (Most current) and [...] NEVER USED [place] [facility] Tobacco Use History This section includes a history of the smoking, or tobacco-related health factors, that were collected on or before the date of the Encounter. The data comes from the NH facility where the Encounter took place. Date/Time Smoking Status/Tobacco Use Comment [facility] Jul 17, 2020 11:00 AM VA-TOBACCO FORMER USER [place] [facility] Jul 17, 2020 11:00 AM VA-TOBACCO QUIT 15 YRS OR MORE [place] [facility] Jul 19, 2019 10:33 AM VA-TOBACCO NEVER USED [place] [facility] Jul 20, 2018 10:33 AM QUIT TOBACCO USE > 7 YEARS AGO [facility] Dec 23, 2016 10:27 AM LIFETIME NON-TOBACCO USER [place] [facility] Nov 26, 2015 11:35 AM QUIT TOBACCO USE > 7 YEARS AGO [place] [facility] May 19, 2005 08:38 AM LIFETIME NON-SMOKER [place] [facility] Apr 23, 2004 11:39 AM LIFETIME NON-SMOKER [place] [facility] May 15, 2003 10:08 AM LIFETIME NON-SMOKER [place] [facility] Dec 31, 2001 04:36 PM LIFETIME NON-SMOKER [place] [facility] Advance Directives: All historical and current Section Date Range: From patient's date of to the date document was created. This section includes ALL of a patient's completed or amended NH Advance and Rescinded Directives. The entries below indicate that a directive exists for the patient, but an actual copy is not included with this document. The data comes from all NH facilities. Date Advance Directives Provider Source Jun 05, 2017 ADVANCE DIRECTIVE LILLIAM DEGROOT [facility] Encounter Notes: All associated encounter notes This section contains the clinical notes associated to the Encounter. Date/Time Encounter Note(s) Provider Source March 15, 2021 02:42 PRIMARY CARE LETTERS: ISREAL FITZGERALDT LOCAL TITLE: [facility] PATIENT LAB RESULTS LETTER [facility] STANDARD TITLE: PRIMARY CARE LETTERS DATE OF NOTE: MARCH 15, 2021@14:42 ENTRY DATE: MARCH 15, 2021@14:42:34 AUTHOR: ISREAL FITZGERALD EXP COSIGNER: BARRINGTON ANDERSON URGENCY: STATUS: COMPLETED DEPARTMENT OF VETE [facility] [address], [address] [facility] [address] Phone: MARCH 15, 2021 MS. MACARENA CLEMENTE [address] [place], [place] [address] Dear Ms. Clemente: We have received the results of your recent test (s): Labs (14 Days) Collection DT Specimen Test Name Result Units Ref Range 03/15/2021 11:43 URINE !! CR RAN 335.7 mg/dL !! MCIROA 1.5 mg/dL 0.0 - 29.9 !! MAL/CRE 4.5 mg/g 0.0 - 29.9 03/15/2021 11:43 PLASMA!! GLUCOSE 169 H mg/dL 65 - 100 !! UREA NITROGEN 12 mg/dL 7 - 25 !! CREATININE 0.95 mg/dl 0.5 - 1.5 !! eGFR 58 L mL/min Ref: >=60 !! SODIUM 141 mmol/L 135 - 145 !! POTASSIUM 4.7 mmol/L 3.5 - 5.0 !! CHLORIDE 106 mmol/L 100 - 110 !! CARBON DIOXIDE 26 mmol/L 20 - 30 !! ANION GAP 9 mmol/L 4 - 16 !! CALCIUM 9.1 mg/dL 8.5 - 10.5 !! CHOLESTEROL 207 H mg/dL 0 - 199 !! TRIGLYCERID E 136 mg/dL 0 - 149 !! HDL CHOLEST BAIRON 44 mg/dL Ref: >=40 !! LDL 136 H mg/dl 0 - 129 03/15/2021 11:43 BLOOD !! HEMOGLOBIN A1C 8.1 H % 4.0 - 5.6 03/15/2021 11:43 SERUM !! VITAMIN B-1 2 173 L pg/mL 200 - 900 !! VIT D 25-OH(WRJ) 14.5 L ng/mL 20 - 50 Remarks: Your total cholesterol and LDL (bad cho lesterol) are elevated. I recommend restarting your cholesterol me dicine (atorvastatin) because your 10- year risk of a cardiovascular event such as a he art attack or stroke is 39.9% (high) without treatment. Taking your cholester ol medication, exercise and a healthy diet can reduce this risk. Your A1C was 8.1, which is the same as your prev ious A1C of 8.1 on 08/14/2020. Your vitamin B-12 and vitami n D levels were both slightly low and I recommend a daily supplement of these. Please call if you wo uld like us to send you these vitamins. Thanks! Please call with any questions. Sincerely, // ISREAL FITZGERALD Nurse Practitioner Resident March 15, 2021 09:59 NURSING IMMUNIZATION NOTE: CECILIO CHUNG AM LOCAL TITLE: [facility]G COVID-19 VACCINE ADMINIS TRATION [facility] STANDARD TITLE: NURSING IMMUNIZATION NOTE DATE OF NOTE: MARCH 15, 2021@09:59 ENTRY DATE: MARCH 15, 2021@09:59:39 AUTHOR: CECILIO CHUNG EXP COSIGNER: URGENCY: STATUS: COMPLETED Moderna COVID-19 Vaccine given previously Patient received a prior dose of the Moderna COV ID-19 Vaccine. Date: January 04, [id number] Location: Non NH Facility Patient received a prior dose of the Moderna COV ID-19 Vaccine. Date: February 01, [id number] Location: Non NH Facility // CECILIO CHUNG Registered Nurse Signed: 03/15/2021 10:01 March 15, 2021 09:57 PRIMARY CARE ANNUAL EVALUATION NOTE: CECILIO CHUNG AM LOCAL TITLE: Preventive Health Annual Review [facility] STANDARD TITLE: PRIMARY CARE ANNUAL EVALUATION N OTE DATE OF NOTE: MARCH 15, 2021@09:57 ENTRY DATE: MARCH 15, 2021@09:57:05 AUTHOR: CECILIO CHUNG EXP COSIGNER: URGENCY: STATUS: COMPLETED Preventive Health Annual Review Has ADDEN DA Tobacco Use Screening: The patient has never used tobacco. Falls & Incontinence Screen: Falls Screen: 4. No falls within the past year. Homelessness/Food Insecurity Screen: In the past 2 months, have you been living in stable housing that you own, rent, or stay in as part of a househo ? Yes - Living in stable housing. Are you worried or c oncerned that in the next 2 months you may NOT have stable housing that you own, rent, or st ay in as part of a household? No - Not worried about housing near [facility] The reports the following: Within the past 12 months, you worried wheth er your food would run out before you got money to buy more. Never true Within the past 12 months, the food you boug ht just didn't last and you didn't have money to get more. Never true Alcohol Use Screen (AUDIT-C): Alcohol Screen: SCREEN FOR ALCOHOL (AUDIT-C) An alcohol screening test (AUDIT-C ) was negative (score=3). 1. How often did you have a drink containing alcohol in the past year? Two to three times per week 2. How many drinks containing alco hol did you have on a typical day when you were drinking in the past year? One or two drinks 3. How often d id you have 4 or more drinks on one occasion in the past year? Never Depression Screening: Perform PHQ-2 A PHQ-2 screen was performed. The sc ore was 0 which is a negative screen for depression. Over the past two weeks, how often h ave you been bothered by the following problems? 1. Little interest or pleasure in do ing things Not at all 2. Feeling down, depressed, or hopel ess Not at all // APRIL Guido CHUNG Registered Nurse Signed: 03/15/2021 09:59 03/15/2021 ADDENDUM STATUS: COMPLETED Zoster Vaccine (Shingrix): The patient received recombinant zoster vaccine (RZV) 0.5 ml IM in Left deltoid. Machine Or Machinery Mechanic: Nulogy Lot#s and Expiration Date: 9472F, [id number], 08/19/22 Administered by protocol/policy Complications: None The VIS for the recombinant zost er vaccine (RZV) dated Aug was given to the patient. /marlo/ MAGDY SALAZAR Registered Nurse Signed: 03/15/2021 11:32 March 15, 2021 08:59 PRIMARY CARE NOTE: ISREAL FITZGERALD JCT AM LOCAL TITLE: Primary Care Clinic Note [facility] STANDARD TITLE: PRIMARY CARE NOTE DATE OF NOTE: MARCH 15, 2021@08:59 ENTRY DATE: MARCH 15, 2021@08:59:44 AUTHOR: ISREAL FITZGERALD EXP COSIGNER: BARRINGTON ANDERSON URGENCY: STATUS: COMPLETED Primary Care Clinic Note Has ADDENDA SUBJECTIVE: CC: Follow-up HPI: 70 year old female (transgender MTF , prefers she/her pronouns) presenting to clinic for follow up of chronic conditions. states she is planning to have her catar acts out - this is being coordinated to be done locally, likely in [facility]. Requests new blood glucose meter - her old one w as lost during her move from [place] to [facility] [place] this fall . Also needs test strips and lancets. States she stopped taking Atorvastatin m iddle of winter, has been watching her diet and felt was taking too much medication. I s agreeable to check lipids today. Also would like to see Tyrell higgins for skin check. Has a skin tag/irritated mole to her right clavicle which has grown and is very bothersome, would like to have this removed. Also states her has noticed a changed mole on her back and would like that to be checked out. Continues to struggle with insomnia, is followed by the sleep clinic. Working on a sleep hygeine program for 8 weeks then plan s to f/u with sleep clinic provider. Thinking about trying melatoni n. Has difficult with sleep onset and maintainances. Sometimes feels tired during the daytime. Review of Systems: GEN: Denies excessive fatigue, snoring. Reports nl appetite. HEENT: Has upper dentures, these fit well. Hasn' t seen dentist in 5 years CV: Denies chest pain, CASH, irregular HR, palpit ation PULM: Denies SOB, difficulty breathing, cough Breasts: Denies lumps, pain, nipple d/c, skin ch anges GI: Denies n/v/d, constipation, blood in stool : Denies incontinence, urinary frequency, urge ncy, nocturia, hematuria MSK: Endorses chronic back pain - managed with P RN pain medication EXT: Denies edema PSYCH: Denies anxiety. Denies feeling down, depr essed or hopeless Social: to 2nd for 11 years. Actu ally and as they were after reassignment surgery but befo re her certificate was changed from male to female. They have a great, supportive marriage. He was from his first after 35 ye ars, she couldn't handle being to a transgender individual. Pt has 5 daughters and 1 son and 13 grandchildren. All call her dad or grandpa. She reports be ing very well adjusted and actually helps other transgendered persons. Her has been diagnosed with Alzheimers, struggles with short term me delvis. They live together in a [place] on [facility] [facility] [address], moved there permanently from [facility] in fall 2019. : [employer] 07/09/1970-06[birth year]27[birth year]1978 Stationed at [facility]. Denies PTSD, MST. Was also in t [employer] from [id number]. 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 Family history: Mother: at 92 from stro ke complications of stroke. History of several mini- strokes. Father: 55 lung cancer Brother: CVD, ETOH d/o Sister: cervical CA, ETOH d/o Sister: ETOH d/o sister: Myelopathy sister: multiple cardio surgeries MGM: CVA's MGF: fell off the roof and young PGM: CVA PGF: suicide at age 27, WWI PTSD Daughter: recovering from Covid Daughter: hit by a car and is recovering Health Maintenance: Sigmoid/Hudson: 05/2017, normal Mammogram: 07/28/20 at [facility], normal MEDS: ALLERGIES: FOOD DYES, FOOD PRESERVATIVES Active Outpatient Medications (excluding Supplie s): Active Outpatient Medications Status 1) ATORVASTATIN CALCIUM 40 MG TAB TAKE ONE TABLET BY ACTIVE - not taking MOUTH EVERY DAY TO LOWER CHOLESTEROL 2) CARBOXYMETHYLCELLULOSE NA 0.5%(PF)OP [place] IN STILL ONE ACTIVE DROP IN BOTH EYES TWO TO FOUR TIMES DAILY FOR DRYNESS 3) CODEINE 30/ACETAMINOPHEN 300MG TAB TAKE 1 T ABLET BY ACTIVE MOUTH EVERY FOUR HOURS NEEDED FOR PAIN . MAY TAKE 2 TABS AT BEDTIME FOR SEVERE PAIN. 4) GLIPIZIDE 10MG TAB TAKE ONE TABLET BY MOUTH TWICE A ACTIVE DAY FOR DIABETES 5) METFORMIN HCL 500MG 24HR SA TAB TAKE FOUR T ABLETS BY ACTIVE MOUTH EVERY DAY FOR DIABETES Pending Outpatient Medications Status 1) FAMOTIDINE 20MG TAB TAKE ONE TABLET BY MOUT H AT PENDING BEDTIME FOR STOMACH ACID Active Non-VA Medications Status 1) Non-VA ASPIRIN 325MG EC TAB 325MG MOUTH FREDY RY DAY ACTIVE 7 Total Medications PMH: Active problems - Computerized Problem List is t he source for the followin. Nail dystrophy 2. Atherosclerosis of artery of lower limb 3. Bilateral acquired hallux limitus of great t oes 4. Acquired deflected nasal septum 5. Multiple benign melanocytic nevi 6. Dysplastic nevus of skin 7. Seborrheic Keratosis 8. Hematuria 9. Gender dysphoria (SNOMED CT [id number]) 10. 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 Depressive Disorder Nec 13. ANAPH SHOCK/FODD ADD. OBJECTIVE: DATE/TIME TEMP PULSE RESP B P PAIN WEIGHT 03/15/21 @ 0956 98.6 83 14 1 38/86 0 174.25 BODY MASS INDEX - MARCH 15, 2021@09:56:12 23.7 03/15/21 @ 0956 PULSE OXIMETRY: 97 GEN: Well-appearing, no apparent distress. NECK: supple, no nodes. Thyroid nl. CV: RRR S1 S2 nl, no murmurs, CHEST: Respirations unlabored, CTA bilat, no craps dealer ckles or wheezes ABD: Flat, non-distended EXT: No edema; MSK: Coordinated gait, NEURO: Alert and oriented SKIN: Skin tag to right clavicle noted; multiple SK to back LYMPH: No lymphadenopathy in pre and posterior a uricular, submental, submandibular, superficial and deep cervical, yen praclavicular, and axillary. PSYCH: Appropriate affect and demeanor, normal s peech pattern ASSESSMENT/PLAN: #Bilateral cataracts -Continue f/u with [facility] clinic. Proceed with surgery once scheduled. #Skin tag -Likely benign skin tag vs. SK. Consult placed t o Plastic Surgery for removal per request #Insomnia -Continue follow up with Sleep Clinic -Consider trial of melatonin if behavioral inter ventions ineffective #Chronic back pain -Stable. Managed with occasional PRN CODEINE 30/ ACETAMINOPHEN 300MG TAB at HS -Obtain UDS today -Consider PT if worsening #DM2 -Last A1c 8.1 on 08/14/2020 -[employer] provided with new meter, test strips an d lancets in clinic today -Encourage home monitoring -Continue metformin SA 2000mg QA and glipizide 1 0mg BID. BMP, A1c and microalbumin screen today #Hyperlipidemia -LDL previously at goal (63 on 08/2020) on Atorvastatin 40mg. reports stopping atorvastatin this winter and managing w ith diet. -Repeat lipid profile today. Pending lab result s, recommend restarting atorvastatin 40mg daily. Preventive/Health Maintenance: COVID vaccine? 01/04 and 02/01. Shingrix - dose #1 today, dose #2 at 6 month f/u RAE/ C/POLST On file?: yes Colonoscopy due 2026 Mammo due 07/2021 - order next visit RTC: 6 months Reminders: Advance Directive Screen: Patient has an Advance Directive on file a t this [facility]. The patient received education about advance directive s as well as written notification of his/her rights. Patient has an up to date Advance Directiv e document on file at this [facility]. No updates are needed at this time. The patient received education about advan ce directives as well as written notification of his/her rights. Diabetic Eye Exam: Diabetic Eye Exam already scheduled insi de/outside [facility], or patient already in eye clinic recall. Medication Reconciliation: Outpatient: Has the patient been taking medications as documented in the EMLR? No: Discrepencies were identified. See bel ow. Essential Medication List for Review used to complete this medication reconciliation. INCLUDED IN THIS LIST: Alphabetical list o f active outpatient prescriptions dispensed from this NH (loca l) and dispensed from another NH or [facility] facility (remote) as well as inp atient orders (local, pending and active), local clinic medications, loc ally documented non-VA medications, and local prescriptions that have or been discontinued in the past 90 days. - Discrepancies were identified, addressed , and discussed with the patient/caregiver at this encounter. Discrepancies: not taking atorvastatin - All changes in medic ations, including all non-VA/Herbal/OTC medications were entered into CPRS. - If there were any medications the patien t should no longer take, they were discontinued. - The patient/caregiver was instructed to update this list, discard old lists, and take this list to the next appo intment, whether with a VA or non-VA provider. /marlo/ ISREAL FITZGERALD Nurse Practitioner Resident Signed: 03/16/2021 09:38 /marlo/ Barrington Anderson MSN, RETAIL SPECIAL EVENT ASSOCIATE Nurse Practitioner Faculty Cosigned: 03/16/2021 10:34 03/16/2021 ADDENDUM STATUS: COMPLETED I performed a history and physical examination o f the patient and discussed management with the resident. I reviewed the residents note and agree with the documented findings and plan of care. /marlo/ Barrintgon Anderson MSN, RETAIL SPECIAL EVENT ASSOCIATE Nurse Practitioner Faculty Signed: 03/16/2021 10:34
--- OUTSIDE RECORDS SUMMARY | 2021-07-26 06:24 | XMS_ITS ---
:1950 Author Organization Department [facility] Address [address] [place] [address] Care Team Providers Name Role Phone BARRINGTON [...] MEDICARE MEDICARE PART May 06, PART A [id number] CHYNATYRESE PATIENT (WNR) (M) A 2013 DE63 2 BBI MEDICARE MEDICARE PART May 06, PART B [id number] TYRESE CLEMENTE PATIENT (WNR) (M) B 2013 DE63 2 BBI FAMILY USFAM Nov 06, WNR [id number] TYRESE CLEMENTE PATIENT HEALTH [facility](W 2017 [id number] BBI PLAN NR) FAMILY USP Nov 06, [id number] [phone] TYRESE RIOJAS PATIENT [facility] 2017 [id number] 364 BBI PLAN [place] Selected Encounter This section includes the information on record at [place] for the Encounter. Date/Time Encounter Type Encounter Reason Provider Source Description March 12, 2021 OFFICE O/P NEW SLEEP MEDICINE ICD-10-CM G47.00 JULIA MAY 09:30 AM MOD 45-59 MIN Insomnia, unspecified with Provider Comments: Insomnia, unspecified IHE Encounter Template Text not used by DC Assessments - Encounter Diagnoses This section includes the primary and secondary diagnoses documented forthe Encounter. Date/Time Primary/Secondary Diagnosis Name Provider Source Diagnosis March 12, 2021 PRIMARY InsomniaLALO KEITH [place] 10:33 AM unspecified [facility] Plan of Treatment: Future Appointments (+ [...] 20 appointments. The data comes from all [facility]. Appointment Date/Time Appointment Type Appointment Facili ty Name March 15, 2021 10:00 AM AMBULATORY - MEDICINE [facility] Apr 14, 2021 01:15 PM AMBULATORY - SURGERY [facility] Jun 01, 2021 08:30 AM AMBULATORY - NONE [facility] Jul 20, 2021 03:00 PM AMBULATORY - MEDICINE [facility] Active, Pending, and Scheduled [...] the Encounter. The data comes from all [place] treatment facilities. Test Date/Time Test Type Test Details Facility Name March 22, 2021 01:16 PM Consult Order COMMUNITY CARE-OPHTH [facility] SURGICAL Cons Civil Engineering Professor's Choice Lab Results: +/- 30 days of the encounter This section includes the Chemistry and Hematology Lab Results on record with DC for the patient. Radiology Reports and Pathology Reports are provided separately, in subsequent sections.Lab Results This section contains the Chemistry/Hematology Results that were resulted 30 days before or 30 days after the date of the Encounter. 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 [facility] [place] [address] Performing Lab: [place] [facility] [address] [facility] [address] CREATININE (URINE,RANDOM) 335.7 mg/dL MICROALBUMIN, QUANTITATIVE 1.5 mg/dL 0.0 -29.9 MICROALBUMIN/CREATININE RATIO 4.5 mg/g 0.0-29.9 March 15, 2021 11:43 AM [place] VITAMIN B-12 Specimen Type: SERUM [facility] Comment: Tests performed on [employer]ing Machine Operator (405) SN:[id number] Results checked Ordering Provider: ISREAL FITZGERALD Report Released Date/Time: March 15, 2021 10:51 AM Reporting Lab: [place] [facility] [address] [facility] [address] Performing Lab: [place] [facility] [address] [place] [facility] [place] [address] VITAMIN B-12 173 pg/mL L 200-900 March 15, 2021 11:43 [place] VIT D 25-OH([facility]) Specimen Type: SERUM AM [facility] Comment: Tests performed on [employer]ing Machine Operator (405) SN:[id number] Results checked Ordering Provider: ISREAL FITZGERALD Report Released Date/Time: March 15, 2021 10:51 AM Reporting Lab: [place] [facility] [address] [place] [facility] [place] [address] Performing Lab: [place] [facility] [address] [place] [place] [address] VIT D 25-OH([facility]) 14.5 ng/mL L 20-50 March 15, 2021 [place] GLYCOHEMOGLOBIN (A1C ONLY) Specimen Type: BLOOD 11:43 AM [facility] Comment: Tests performed on [employer] Machine Operator (405) [id number] Ordering Provider: ISREAL FITZGERALD Report Released Date/Time: March 15, 2021 10:51 AM Reporting Lab: [place] [facility] [address] [place] [facility] [place] [address] Performing Lab: [facility] [address] [facility] [address] HEMOGLOBIN A1C 8.1 % H 4.0-5.6 March 15, 2021 11:43 [facility] DRUG SCREEN([facility]) Specimen Type: URINE AM [facility] Comment: Tests performed on Saleem [employer] (405) SN:[id number] Ordering Provider: ISREAL FITZGERALD Report Released Date/Time: March 15, 2021 10:51 AM Reporting Lab: [facility] [address] [facility] [address] Performing Lab: [facility] [address] [facility] [address] COCAINE SCREEN NONE DETECTED NONE-DETECT ED, CUTOFF= 300 ng/mL BENZODIAZEPINES SCREEN NONE DETECTED NON E-DETECTED, CUTOFF= 200 ng/mL OPIATES SCREEN NONE DETECTED NONE-DETECT ED, CUTOFF= 300 ng/mL CREATININE (URINE,RANDOM) 333.3 mg/dL CANNABINOID SCRN NONE DETECTED NONE-DETE CTED, CUTOFF= 50 ng/mL AMPHETAMINE SCRN NONE DETECTED NONE-DETE CTED, CUTOFF= 1000 ng/mL OXYCODONE SCREEN URINE([facility]) NONE DETECTED NONE-DETECTED, VLQTGV=733dd/mL ETOH URINE <10.0 mg/dL NEGATIVE-10.0 BUPRENORPHINE SCREEN URINE([facility]) NONE DETECTED NONE-DETECTED, CUT METHADONE SCREEN([facility]) NONE DETECTED NONE -DETECTED, JAZGZZ=981fg/mL pH BRIAN 5.1 4.0-10.0 SPECIFIC GRAVITY BRIAN 1.029 g/mL H 1.003-1. 020 FENTANYL([facility])URINE SCREEN NONE DETECTED NONE DETECTED, CUTOFF=1.0ng/mL March 15, 2021 [facility] P4 GLU,BUN,CREAT,LYTES,CA Specimen Type: PLASMA 11:43 AM [facility] Comment: Tests performed on [employer] Operator (405) SN:[id number] Ordering Provider: ISREAL FITZGERALD Report Released Date/Time: March 15, 2021 10:51 AM Reporting Lab: [facility] [address] [facility] [address] Performing Lab: [facility] [address] [facility] [address] UREA NITROGEN 12 mg/dL 7-25 SODIUM 141 mmol/L 135-145 POTASSIUM 4.7 mmol/L 3.5-5.0 CHLORIDE 106 mmol/L 100-110 CARBON DIOXIDE 26 mmol/L 20-30 ANION GAP 9 mmol/L 4-16 GLUCOSE 169 mg/dL H 65-100 CREATININE 0.95 mg/dl 0.5-1.5 CALCIUM 9.1 mg/dL 8.5-10.5 eGFR 58 mL/min L >60 March 15, 2021 [facility] LIPOPROTEIN CHOLESTEROL Specimen Type: PLASMA 11:[address] [facility] FRACT. PANEL Comment: Tests performed on [employer] (405) SN:[id number] Ordering Provider: ISREAL FITZGERALD Report Released Date/Time: March 15, 2021 10:51 AM Reporting Lab: [facility] [address] [facility] [address] Performing Lab: [facility] [address] [facility] [address] CHOLESTEROL 207 mg/dL H 0-199 TRIGLYCERIDE 136 mg/dL 0-149 HDL CHOLESTEROL 44 mg/dL >40 LDL CHOLESTEROL (CALC) 136 mg/dl H 0-129 Social History: Smoking Status (Most current) and [...] 17, 2020 11:00 AM VA-TOBACCO FORMER USER [facility] Tobacco Use History This section includes a history of the smoking, or tobacco-related health factors, that were collected on or before the date of the Encounter. The data comes from the [place] facility where the Encounter took place. Date/Time Smoking Status/Tobacco Use Comment [facility] Jul 17, 2020 11:00 AM VA-TOBACCO QUIT 15 YRS OR MORE [facility] Jul 19, 2019 10:33 AM VA-TOBACCO NEVER USED [facility] Jul 20, 2018 10:33 AM QUIT TOBACCO USE > 7 YEARS AGO [facility] Dec 23, 2016 10:27 AM LIFETIME NON-TOBACCO USER [facility] Nov 26, 2015 11:35 AM QUIT TOBACCO USE > [facility] [address] [facility] [facility] May 19, 2005 08:38 AM LIFETIME NON-SMOKER [facility] Apr 23, 2004 11:39 AM LIFETIME NON-SMOKER [facility] May 15, 2003 10:08 AM LIFETIME NON-SMOKER [facility] Dec 31, 2001 04:36 PM LIFETIME NON-SMOKER [facility] Advance Directives: All historical and current [...] Source Jun 05, 2017 ADVANCE DIRECTIVE ZANELILLIAM E [facility] Encounter Notes: All associated encounter notes This section contains the clinical notes associated to the Encounter. Date/Time Encounter Note(s) Provider Source March 12, 2021 09:40 AM SLEEP MEDICINE CONSULT: MONICA MAY GABRIEL CLARK Erik LOCAL TITLE: CONSULT: Sleep Clinic [facility] STANDARD TITLE: SLEEP MEDICINE CONSULT DATE OF NOTE: MARCH 12, 2021@09:40 ENTRY DATE: MARCH 12, 2021@09:40:15 AUTHOR: MONICA MAY EXP COSIGNER: URGENCY: STATUS: COMPLETED Sleep consult was conducted by telephone due to COVID-19 restrictions. INITIAL SLEEP MEDICINE TELEPHONE NOTE CHIEF COMPLAINT: I'm always tired because I don't get enough sle ep. HISTORY OF PREENT ILLNESS: MACARENA CLEMENTE is a 70 FEMALE with: INSOMNIA: History: diff with sleep init and maint due to i ncreased mental activity and movement. + psychophysiological component. Insomnia Severity Index (ELVIS): Sleep Schedule: tib 11:30p, sl 3-4 hrs, can be frustrating, light sleep, mca 3+, nocturia x 2-3, tob 8a, est 3-4 hrs sleep, tob 8 am, NRS, no naps RECOMMENDATIONS: reviewed cbti, she will do the paper version and formal cbti if needed. OBSTRUCTIVE SLEEP APNEA?: History: denies snoring, witnessed apnea s, or other signs/symptoms of ANG. She is transgender and does have DM. STOP-BANG Score: 3 Gilbert Sleepiness Score (ESS): 5/24 History of sleepy driving: denies Sleep Studies: has not had a sleep study PAP Data: n/a Mask History(*Preferred Mask): n/a RECOMMENDATIONS: Consider sleep study (HSAT) if not improving wit h insomnia treatment. SLEEP DISORDERED BREATHING COMORBIDITIES: Diabetes Mental health noc GERD SYMPTOM RATING SCALES: 1. Fatigue 0-210 2. Nighttime Pain 4-03/15 3. Depression 2-02/13 4. Daytime Anxiety 0-11/15 5. Nightmares 0-11/15 SLEEP MEDICINE SUICIDE SCREEN: C-SSRS Screening [place]-Suicide Severity Rating Scale (C-SSRS Screener) 1. Over the past month, have you wished you were or wished you could go to sleep and not wake up? No 2. Over the past month, have you had any act ual thoughts of killing yourself? No 3. Over the past month, have you been thinking about how you might do this? Response not required due to responses to ot her questions. 4. Over the past month, have you had these thoughts and had some intention of acting on them? Response not required due to responses to ot her questions. 5. Over the past month, have you started to work out or worked out the details of how to kill yourself? Response not required due to responses to ot her questions. 6. If yes, at any time in the past month did you intend to carry out this plan? Response not required due to responses to ot her questions. 7. In your lifetime, have you ever done anyt raúl, started to do anything, or prepared to do anyth ing to end your life (for example, collected pills, obtained a gun, gave away valuables, went to the roof but didn't jump)? No 8. If YES, was this within the past 3 months ? Response not required due to responses to ot her questions. SLEEP ROS: RESTLESS LEGS: none PARASOMNIAS: none BRUXISM: none LEG CRAMPS: none NARCOLEPSY: no associated symptoms MEDICATIONS: Active Outpatient Medications (excluding Supplie s): Active Outpatient Medications Status 1) ATORVASTATIN CALCIUM 40MG TAB TAKE ONE TABL ET BY ACTIVE MOUTH EVERY DAY TO LOWER CHOLESTEROL 2) CARBOXYMETHYLCELLULOSE NA 0.5%(PF)OP KENDALL IN STILL ONE ACTIVE DROP IN BOTH EYES TWO TO FOUR TIMES DAILY FOR DRYNESS 3) GLIPIZIDE 10MG TAB TAKE ONE TABLET BY MOUTH TWICE A ACTIVE DAY FOR DIABETES 4) METFORMIN HCL 500MG 24HR SA TAB TAKE FOUR T ABLETS BY ACTIVE MOUTH EVERY DAY FOR DIABETES Pending Outpatient Medications Status 1) CODEINE 30/ACETAMINOPHEN 300MG TAB TAKE 1 T ABLET BY PENDING MOUTH EVERY FOUR HOURS NEEDED FOR PAIN . MAY TAKE 2 TABS AT BEDTIME FOR SEVERE PAIN. 2) FAMOTIDINE 20MG TAB TAKE ONE TABLET BY MOUT H AT PENDING BEDTIME FOR STOMACH ACID Active Non-VA Medications Status 1) Non-VA ASPIRIN 325MG EC TAB 325MG MOUTH FREDY RY DAY ACTIVE 7 Total Medications ALLERGIES: FOOD DYES, FOOD PRESERVATIVES Active problems - Computerized Problem List is t he source for the followin. Pain in limb 2. Nail dystrophy 3. Atherosclerosis of artery of lower limb 4. Bilateral acquired hallux limitus of great t oes 5. Acquired deflected nasal septum 6. Multiple benign melanocytic nevi 7. Dysplastic nevus of skin 8. Seborrheic Keratosis 9. SCREENING FOR MALIGNANT NEOPLASM 10. Exostosis of unspecified site * 11. Muscle Cramp 12. Partner Relational Problem 13. Hematuria 14. Nevus, non-neoplastic 15. Gender dysphoria (SNOMED CT [id number]) 16. 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 Depressive Disorder Nec 19. ANAPH SHOCK/FODD ADD. FAMILY HISTORY OF SLEEP DISORDERS: daughter ang SOCIAL HISTORY: : retired Work: retired SUBSTANCE USE: Tobacco: no ETOH: occ Caffeine: +, last sarah during dinner Drugs: no VITAL SIGNS: BP: 140/74 (08/14/2020 10:13) Pulse: 85 (08/14/2020 10:13) Temp: 97.4 F [36.3 C] (08/14/2020 10:13) Resp: 20 (07/19/2019 10:10) HT(in): 72 in [182.9 cm] (07/19/2019 10:13) WT(lbs.):181 lb [82.3 kg] (08/14/2020 10:13) O2 sat: PULSE OXIMETRY - NONE FOUND - 1M BMI: BODY MASS INDEX - AUG 14, 2020@10:13:03 2 4.6 LABS: AbsI.0 (08/14/20 10:45) BASO %: 0.8 (08/14/20 10:45) BASO#: 0.1 (08/14/20 10:45) EOS %: 0.8 (08/14/20 10:45) EOS#: 0.1 (08/14/20 10:45) HCT: 44.5 (08/14/20 10:45) HGB: 14.2 (08/14/20 10:45) IG%: 0.3 (08/14/20 10:45) LYMPH %: 25.6 (08/14/20 10:45) Lymph#: 2.0 (08/14/20 10:45) MCH: 29.5 (08/14/20 10:45) MCHC: 31.9 (08/14/20 10:45) MCV: 92.5 (08/14/20 10:45) MONO %: 7.6 (08/14/20 10:45) MONO#: 0.6 (08/14/20 10:45) MPV: 10.0 (08/14/20 10:45) N.RBC: 0.0 (08/14/20 10:45) NEUT %: 64.9 (08/14/20 10:45) NEUT#: 5.0 (08/14/20 10:45) NRBC#: 0.00 (08/14/20 10:45) PLT: 302 (08/14/20 10:45) RBC: 4.81 (08/14/20 10:45) RDW: 12.9 (08/14/20 10:45) WBC: 7.7 (08/14/20 10:45) IRON+TIBC(P) - NONE FOUND FERRITI: 251 (05/19/05 08:15) GLU,BUN,CREAT,LYTES GLUCOSE BUN CREAT S ODIUM K CHLOR CO2 08/14/20 10:45 153 H 12 0.92 1 41 3.9 105 27 GLU,BUN,CREAT,LYTES ANION eGFR 08/14/20 10:45 9 60 HGB A1C: 8.1 (08/14/20 10:45) CA: 9.5 (08/14/20 10:45) MAGNESIUM (112700) - NONE FOUND PO4 - NONE FOUND WESTERGREN ESR - NONE FOUND BAUTISTA- No data available Vitamin D: Collection DT Spec 25 OH-D 08/14/2020 10:45 SERUM 22.5 TSH: 1.67 (08/14/20 10:45) LFT: No data available ASSESSMENT AND PLAN: insomnia: see above. I spent approximately 60 min utes on phone with patient. Greater than 50% of the appointment was spent counseling, discussing chantelle gnosis and treatment and reviewing therapeutic options. MONICA Hurtado MD /marlo/ MONICA Hurtado MD Signed: 03/12/2021 10:33
--- OUTSIDE RECORDS SUMMARY | 2021-07-26 06:24 | XMS_ITS ---
:1950 Author Organization Department [facility] Address [address] [place] [id number] Care Team Providers Name Role Phone BARRINGTON [...] MEDICARE MEDICARE PART May 06, PART A [id number] CHYNATYRESE PATIENT (WNR) (M) A 2013 DE63 2 BBI MEDICARE MEDICARE PART May 06, PART B [id number] TYRESE CLEMENTE PATIENT (WNR) (M) B 2013 DE63 2 BBI FAMILY USFAM Nov 06, WNR [id number] TYRESE CLEMENTE PATIENT [facility]ALTH [facility](W 2017 [id number] BBI PLAN NR) FAMILY USFHP Nov 06, [id number] TYRESE RIOJAS PATIENT [facility] 2017 [id number] 364 BBI PLAN [place] Selected Encounter This section includes the information on record at [place] for the Encounter. Date/Time Encounter Type Encounter Description Reason Provider Source Feb 12, 2021 04:14 Outpatient Encounter COMP [facility] PM IHE Encounter Template Text not used by [place] Plan of Treatment: Future Appointments (+ 6 months) and Future Tests (+/- 45 days) The Plan of Treatment section includes future care activities for the patient from all [place] treatment facilities. This section includes future appointments and future orders which are active, pending or scheduled.Future Appointments This section includes appointments that were scheduled to occur 6 months from the date of the Encounter, up to a maximum of 20 appointments. The data comes from all [facility]. Appointment Date/Time Appointment Type Appointment Facili ty Name March 12, 2021 09:30 AM AMBULATORY - MEDICINE [facility] March 12, 2021 10:30 AM AMBULATORY - SURGERY [facility] March 15, 2021 10:00 AM AMBULATORY - MEDICINE [facility] Apr 14, 2021 01:15 PM AMBULATORY - SURGERY [facility] Jun 01, 2021 08:30 AM AMBULATORY - NONE [facility] Jul 20, 2021 03:00 PM AMBULATORY - MEDICINE [facility] Active, [...] the Encounter. The data comes from all [facility]. Test Date/Time Test Type Test Details Facility Name March 22, 2021 01:16 PM Consult [facility] Cons Or Scrub Tech's Choice Social History: Smoking Status (Most current) and Tobacco Use (All prior to encounter date) This section includes the most current, and the historical, smoking and tobacco-related health factors from the [place] facility where the Encounter took place.Current Smoking Status This section includes the most current smoking, or tobacco-related health factor, from the [place] facility where the Encounter took place. Date/Time Current Smoking Status Comment Facility Jul 17, 2020 11:00 AM VA-TOBACCO FORMER USER [facility] Tobacco Use History This section includes a history of the smoking, or tobacco-related health factors, that were collected on or before the date of the Encounter. The data comes from the [place] facility where the Encounter took place. Date/Time Smoking Status/Tobacco Use Comment Facil [facility] Jul 17, 2020 11:00 AM VA-TOBACCO QUIT 15 YRS OR MORE [facility] Jul 19, 2019 10:33 AM VA-TOBACCO NEVER USED [facility] Jul 20, 2018 10:33 AM QUIT TOBACCO USE > 7 YEARS AGO [facility] Dec 23, 2016 10:27 AM LIFETIME NON-TOBACCO USER [facility] Nov 26, 2015 11:35 AM QUIT TOBACCO USE > 7 YEARS AGO [place] [facility] May 19, 2005 08:38 AM LIFETIME NON-SMOKER [place] [facility] Apr 23, 2004 11:39 AM LIFETIME NON-SMOKER [place] [facility] May 15, 2003 10:08 AM LIFETIME NON-SMOKER [place] [facility] Dec 31, 2001 04:36 PM LIFETIME NON-SMOKER [place] [facility] Advance Directives: All historical and current Section Date Range: From patient's date of to the date document was created. This section includes ALL of a patient's completed or amended [place] Advance and Rescinded Directives. The entries below indicate that a directive exists for the patient, but an actual copy is not included with this document. The data comes from all [place] facilities. Date Advance Directives Provider Source Jun 05, 2017 ADVANCE DIRECTIVE DEGROOTLILLIAM Ruth [facility] Encounter Notes: All associated encounter notes This section contains the clinical notes associated to the Encounter. Date/Time Encounter Note(s) Provider Source Feb 12, 2021 04:14 PM ACCOUNTING OF DISCLOSURES NOTE: MANNY SALAZAR [facility] LOCAL TITLE: STATE PRESCRIPTION DRUG MONITORING PROGRAM (SPDMP) [facility] STANDARD TITLE: ACCOUNTING OF DISCLOSURES NOTE DATE OF NOTE: FEB 12, 2021@16:14 ENTRY DATE: FEB 12, 2021@16:14:26 AUTHOR: MAGDY SALAZAR EXP COSIGNER: URGENCY: STATUS: COMPLETED V1-STATE PRESCRIPTION DRUG MONITORING PROGRAM (S PDMP) The purpose of this query was a part of the medi cation reconciliation process for the: Review for patient safety. The following State Prescription Drug Monitoring Program(s) were queried for this patient: [facility] (02/22/2018: ID PDMP information may be placed in the patient medical records that pertains to ID specific data ONLY, not from an interstate query) [facility] Other: [place] No prescription(s) for controlled substances wer e found to be filled outside the [facility]. /marlo/ MAGDY SALAZAR Registered Nurse Signed: 02/12/2021 16:15
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
--- OUTSIDE RECORDS SUMMARY | 2021-07-26 06:24 | XMS_ITS ---
:[address] [facility] Address [address] [place] [address] Care Team Providers Name Role Phone BARRINGTON [...] MEDICARE MEDICARE PART May 06, PART A [id number] TYRESE CLEMENTE PATIENT (WNR) (M) A 2013 DE63 2 BBI MEDICARE MEDICARE PART May 06, PART B [id number] TYRESE CLEMENTE PATIENT (WNR) (M) B 2013 DE63 2 BBI FAMILY USFAM Nov 06, WNR [id number] TYRESE CLEMENTE PATIENT HEALTH SYED(W 2017 [id number] BBI PLAN NR) US FAMILY USP Nov 06, [id number] [phone] TYRESE RIOJAS PATIENT HEALTH -MART 2017 [id number] BBI PLAN [place] Selected Encounter This section includes the information on record at [place] for the Encounter. Date/Time Encounter Type Encounter Description Reason Provider Source Apr 06, 2021 02:12 Outpatient Encounter ADMIN PAT ACTIVTIES PM (MASNONCT) IHE Encounter Template Text not used by [place] Plan of Treatment: Future Appointments (+ 6 months) and Future Tests (+/- 45 days) The Plan of Treatment section includes future care activities for the patient from all [place] treatment facilities. This section includes future appointments and future orders which are active, pending or scheduled.Future Appointments This section includes appointments that were scheduled to occur 6 months from the date of the Encounter, up to a maximum of 20 appointments. The data comes from all [facility]. Appointment Date/Time Appointment Type Appointment Facili ty Name Apr 14, 2021 01:15 PM AMBULATORY - SURGERY [facility] Jun 01, 2021 08:30 AM AMBULATORY - NONE [facility] Jul 20, 2021 03:00 PM AMBULATORY - MEDICINE [facility] Sep 13, 2021 10:00 AM AMBULATORY - MEDICINE [facility] Active, Pending, and Scheduled Orders This section includes a listing of several types of active, pending, and scheduled orders, including clinic medications orders, diagnostic test orders, procedure orders and consult orders; where the start date of the order is 45 days before the date of the Encounter or 45 days after the date of the Encounter. The data comes from all [place] treatment facilities. Test Date/Time Test Type Test Details Facility Name March 22, 2021 01:16 PM Consult Order COMMUNITY CARE-OPHTH [facility] SURGICAL Cons Medical Attendant's Choice May 07, 2021 01:57 PM Consult Order PODIATRY OUTPATIENT Cons [facility] Medical Attendant's Choice Lab Results: +/- 30 days of the encounter This section includes the Chemistry and Hematology Lab Results on record with [place] for the patient. Radiology Reports and Pathology Reports are provided separately, in subsequent sections.Lab Results This section contains the Chemistry/Hematology Results that were resulted 30 days before or 30 days after the date of the Encounter. Date/Time Source Result Type Result - Unit Interpretation Reference Range Comment March 15, 2021 [facility] MICROALBUMIN/CREATININE RATIO Specimen Type: URINE 11:43 AM [facility] PANEL Comment: Tests performed on Ophis Vape (405) SN:[id number] Ordering Provider: ISREAL FITZGERALD Report Released Date/Time: March 15, 2021 10:51 AM Reporting Lab: [place] [facility] [address] [facility] [address] Performing Lab: [place] [facility] [address] [address] CREATININE (URINE,RANDOM) 335.7 mg/dL MICROALBUMIN, QUANTITATIVE 1.5 mg/dL 0.0 -29.9 MICROALBUMIN/CREATININE RATIO 4.5 mg/g 0.0-29.9 March 15, 2021 11:43 AM [facility] Specimen Type: [facility] Comment: Tests performed on Saleem Handle Bender (405) SN:[id number] Results checked Ordering Provider: ISREAL FITZGERALD Report Released Date/Time: March 15, 2021 10:51 AM Reporting Lab: [place] [facility] [address] [address] Per[facility]: [facility] [address] [address] VITAMIN B-12 173 pg/mL L 200-900 March 15, 2021 11:43 [facility]) Specimen Type: SERUM AM [facility] Comment: Tests performed on Saleem Handle Bender (405) SN:[id number] Results checked Ordering Provider: ISREAL FITZGERALD Report Released Date/Time: March 15, 2021 10:51 AM Reporting Lab: [place] [facility] [address] [facility] [address] Performing Lab: [facility] [address] [facility] [address] VIT D 25-OH([facility]) 14.5 ng/mL L 20-50 March 15, 2021 [place] GLYCOHEMOGLOBIN (A1C ONLY) Specimen Type: BLOOD 11:43 AM [facility] Comment: Tests performed on Saleem Handle Bender (405) SN:[id number] Ordering Provider: ISREAL FITZGERALD Report Released Date/Time: March 15, 2021 10:51 AM Reporting Lab: [facility] [place] [facility] [address] [facility] [address] Performing Lab: [place] [facility] [address] [address] HEMOGLOBIN A1C 8.1 % H 4.0-5.6 March 15, 2021 11:43 [place] DRUG SCREEN([facility]) Specimen Type: URINE AM [facility] Comment: Tests performed on Saleem Handle Bender (405) SN:[id number] Ordering Provider: ISREAL FITZGERALD Report Released Date/Time: March 15, 2021 10:51 AM Reporting [facility]: [facility] [address] [facility] [address] Performing Lab: [facility] [address] [facility] [address] COCAINE SCREEN NONE DETECTED NONE-DETECT ED, CUTOFF= 300 ng/mL BENZODIAZEPINES SCREEN NONE DETECTED NON E-DETECTED, CUTOFF= 200 ng/mL OPIATES SCREEN NONE DETECTED NONE-DETECT ED, CUTOFF= 300 ng/mL CREATININE (URINE,RANDOM) 333.3 mg/dL CANNABINOID SCRN NONE DETECTED NONE-DETE CTED, CUTOFF= 50 ng/mL AMPHETAMINE SCRN NONE DETECTED NONE-DETE CTED, CUTOFF= 1000 ng/mL OXYCODONE SCREEN URINE([facility]) NONE DETECTED NONE-DETECTED, XJDSBD=851ts/mL ETOH URINE <10.0 mg/dL NEGATIVE-10.0 BUPRENORPHINE SCREEN URINE([facility]) NONE DETECTED NONE-DETECTED, CUT METHADONE SCREEN([facility]) NONE DETECTED NONE -DETECTED, WJUQJH=760az/mL pH BRIAN 5.1 4.0-10.0 SPECIFIC GRAVITY BRIAN 1.029 g/mL H 1.003-1. 020 FENTANYL([facility])URINE SCREEN NONE DETECTED NONE DETECTED, CUTOFF=1.0ng/mL March 15, 2021 [facility] P4 GLU,BUN,CREAT,LYTES,CA Specimen Type: PLASMA 11:43 AM [facility] Comment: Tests performed on Saleem Handle Bender (405) SN:[id number] Ordering Provider: ISREAL FITZGERALD Report Released Date/Time: March 15, 2021 10:51 AM Reporting [facility]: [facility] [address] [facility] [address] Performing [facility]: [facility] [address] [facility] [address] UREA NITROGEN 12 mg/dL 7-25 SODIUM 141 mmol/L 135-145 POTASSIUM 4.7 mmol/L 3.5-5.0 CHLORIDE 106 mmol/L 100-110 CARBON DIOXIDE 26 mmol/L 20-30 ANION GAP 9 mmol/L 4-16 GLUCOSE 169 mg/dL H 65-100 CREATININE 0.95 mg/dl 0.5-1.5 CALCIUM 9.1 mg/dL 8.5-10.5 eGFR 58 mL/min L >60 March 15, 2021 [facility] LIPOPROTEIN CHOLESTEROL Specimen Type: PLASMA 11:43 AM [facility] FRACT. PANEL Comment: Tests performed on Saleem Handle Bender (405 SN:[id number] Ordering Provider: ISREAL FITZGERALD Report Released Date/Time: March 15, 2021 10:51 AM Reporting Lab: [facility] [address] [address] Performing Lab: [facility] [address] [facility] [address] CHOLESTEROL 207 mg/dL H 0-199 TRIGLYCERIDE 136 mg/dL 0-149 HDL CHOLESTEROL 44 mg/dL >40 LDL CHOLESTEROL (CALC) 136 mg/dl H 0-129 Social History: Smoking Status (Most current) and Tobacco Use (All prior to encounter date) This section includes the most current, and the historical, smoking and tobacco-related health factors from the [place] facility where the Encounter took place.Current Smoking Status This section includes the most current smoking, or tobacco-related health factor, from the [place] facility where the Encounter took place. Date/Time Current Smoking Status Comment Facility March 15, 2021 10:00 AM VA-TOBACCO NEVER USED [facility] Tobacco Use History This section includes a history of the smoking, or tobacco-related health factors, that were collected on or before the date of the Encounter. The data comes from the [place] facility where the Encounter took place. Date/Time Smoking Status/Tobacco Use Comment [facility] Jul 17, 2020 11:00 AM VA-TOBACCO FORMER USER [facility] Jul 17, 2020 11:00 AM VA-TOBACCO QUIT 15 YRS OR MORE [facility] Jul 19, 2019 10:33 AM VA-TOBACCO NEVER USED [facility] Jul 20, 2018 10:33 AM QUIT TOBACCO USE > 7 YEARS AGO [facility] Dec 23, 2016 10:27 AM LIFETIME NON-TOBACCO USER [facility] Nov 26, 2015 11:35 AM QUIT TOBACCO USE > 7 YEARS AGO [facility] May 19, 2005 08:38 AM [facility] Apr [facility], 2004 11:39 AM LIFETIME NON-SMOKER [facility] May 15, 2003 10:08 AM LIFETIME NON-SMOKER [facility] Dec 31, 2001 04:36 PM LIFETIME NON-SMOKER [facility] Advance Directives: All historical and current Section Date Range: From patient's date of to the date document was created. This section includes ALL of a patient's completed or amended [place] Advance and Rescinded Directives. The entries below indicate that a directive exists for the patient, but an actual copy is not included with this document. The data comes from all [place] facilities. Date Advance Directives Provider Source Jun 05, 2017 ADVANCE DIRECTIVE DEGROOTLILLIAM [facility] Encounter Notes: All associated encounter notes This section contains the clinical notes associated to the Encounter. Date/Time Encounter Note(s) Provider Source Apr 06, 2021 02:12 PM ADMINISTRATIVE NOTE: JAMA AG AMBER Erik LOCAL TITLE: Has Admin Note [facility] STANDARD TITLE: ADMINISTRATIVE NOTE DATE OF NOTE: APR 06, 2021@14:12 ENTRY DATE: APR 06, 2021@14:12:27 AUTHOR: JAMA AG EXP COSIGNER: URGENCY: STATUS: COMPLETED Has Admin Note Has ADDENDA Reason for call: estuardo sanchez like to have replacements for you boots. She uses them every day at work. They are falling apart. Clinic Name:[facility] /marlo/ JAMA AG Rapid Extractor Operator Signed: 04/06/2021 14:14 Receipt Acknowledged By: 04/17/2021 13:40 /rachel BENSON Lead Podiatric Medi [facility] Boat Repairer 04/17/2021 ADDENDUM STATUS: COMPLETED after chart review I can not find any documentation of foot risk score 2 or 3 as well as no documentation for DM foot check by PC P. Per [place] Directive 1410 in order for pt. to meet criteria for at risk foot/ nail care pt. must have 3part foot exam w/ a finding of ri sk score 2 or 3. Last documentation for this pt. is neurovascular status is intact placing risk scor e of 1 low risk. if PCP feels this is inaccurate the pt. will need PCP f/u and DM foot check documented. /rachel BENSON Lead Podiatric Heat Treater Head Signed: 04/17/2021 13:41 Receipt Acknowledged By: * AWAITING SIGNATURE * BARRINGTON ANDERSON
--- OUTSIDE RECORDS SUMMARY | 2021-07-26 06:24 | XMS_ITS ---
:[address] [facility] Address [address] [place] [address] Care Team Providers Name Role Phone BARRINGTON [...] MEDICARE MEDICARE PART May 06, PART A [id number] TYRESE PACHECO PATIENT (WNR) (M) A 2013 DE63 2 BBI MEDICARE MEDICARE PART May 06, PART B [id number] TYRESE PACHECO PATIENT (WNR) (M) B 2013 DE63 2 BBI FAMILY USFAM Nov 06, WNR [id number] TYRESE PACHECO PATIENT HEALTH [facility](W 2017 [id number] 364 BBI PLAN NR) FAMILY USP Nov 06, [id number] TYRESE RIOJAS PATIENT [facility] 2017 [id number] 364 BBI PLAN [place] Selected Encounter This section includes the information on record at [place] for the Encounter. Date/Time Encounter Type Encounter Description Reason Provider Source March 10, 2021 03:20 Outpatient Encounter ADMIN PAT ACTIVTIES PM (MASNONCT) [...] 20 appointments. The data comes from all [facility]. Appointment Date/Time Appointment Type Appointment Facili ty Name March 12, 2021 09:30 AM AMBULATORY - MEDICINE [facility] March 12, 2021 10:30 AM AMBULATORY - SURGERY [facility] March 15, 2021 10:00 AM AMBULATORY - MEDICINE [facility] Apr 14, 2021 01:15 PM AMBULATORY - SURGERY [facility] Jun 01, 2021 08:30 AM AMBULATORY - NONE [facility] Jul 20, 2021 03:00 PM AMBULATORY - MEDICINE [facility] Active, Pending, and Scheduled Orders This [...] The data comes from all [place] treatment [facility]. Test Date/Time Test Type Test Details Facility Name March 22, 2021 01:16 PM Consult Order [facility] SURGICAL Cons Corn Shucker's Choice Lab Results: +/- 30 days of the encounter This section includes the Chemistry and Hematology Lab Results on record with [place] for the patient. Radiology Reports and Pathology Reports are provided separately, in subsequent sections.Lab Results This section contains the Chemistry/Hematology Results that were resulted 30 days before or 30 days after the date of the Encounter. Date/Time Source Result Type Result - Unit Interpretation Reference Range Comment March 15, 2021 [facility] MICROALBUMIN/CREATININE RATIO Specimen Type: URINE 11:43 AM [facility] PANEL Comment: Tests performed on BevyUp 405 SN:[id number] Ordering Provider: ISREAL FITZGERALD Report Released Date/Time: March 15, 2021 10:51 AM Reporting Lab: [place] [facility] [address] [facility] [address] Performing Lab: [facility] [address] [address] CREATININE (URINE,RANDOM) 335.7 mg/dL MICROALBUMIN, QUANTITATIVE 1.5 mg/dL 0.0 -29.9 MICROALBUMIN/CREATININE RATIO 4.5 mg/g 0.0-29.9 March 15, 2021 11:43 AM [facility] V[facility] B-12 Specimen Type: [facility] Comment: Tests performed on Saleem Five Piece Expansion Maker Hand (405) SN:[id number] Results checked Ordering Provider: ISREAL FITZGERALD Report Released Date/Time: March 15, 2021 10:51 AM Reporting Lab: [facility] [place] [facility] [address] [facility] [address] Performing Lab: [facility] [address] [address] VITAMIN B-12 173 pg/mL L 200-900 March 15, 2021 11:43 [facility]) Specimen Type: SERUM AM [facility] Comment: Tests performed on Saleem Five Piece Expansion Maker Hand (405) SN:[id number] Results checked Ordering Provider: ISREAL FITZGERALD Report Released Date/Time: March 15, 2021 10:51 AM Reporting Lab: [facility] [address] [facility] [address] Performing Lab: [facility] [address] [address] VIT D 25-OH([facility]) 14.5 ng/mL L 20-50 March 15, 2021 [place] GLYCOHEMOGLOBIN (A1C ONLY) Specimen Type: BLOOD 11:43 AM [facility] Comment: Tests performed on Saleem Five Piece Expansion Maker Hand (405) SN:[id number] Ordering Provider: ISREAL FITZGERALD Report Released Date/Time: March 15, 2021 10:51 AM Reporting Lab: [facility] [address] [facility] [address] Performing Lab[facility] [address] [facility] [address] HEMOGLOBIN A1C 8.1 % H 4.0-5.6 March 15, 2021 11:43 [facility] DRUG SCREEN([facility]) Specimen Type: URINE AM [facility] Comment: Tests performed on Saleem [employer] (405) SN:[id number] Ordering Provider: ISREAL FITZGERALD Report Released Date/Time: March 15, 2021 10:51 AM Reporting Lab: [facility] [address] [address] Performing Lab: [facility] [address] [address] COCAINE SCREEN NONE DETECTED NONE-DETECT ED, CUTOFF= 300 ng/mL BENZODIAZEPINES SCREEN NONE DETECTED NON E-DETECTED, CUTOFF= 200 ng/mL OPIATES SCREEN NONE DETECTED NONE-DETECT ED, CUTOFF= 300 ng/mL CREATININE (URINE,RANDOM) 333.3 mg/dL CANNABINOID SCRN NONE DETECTED NONE-DETE CTED, CUTOFF= 50 ng/mL AMPHETAMINE SCRN NONE DETECTED NONE-DETE CTED, CUTOFF= 1000 ng/mL OXYCODONE SCREEN URINE([facility]) NONE DETECTED NONE-DETECTED, CZPNSH=735nr/mL ETOH URINE <10.0 mg/dL NEGATIVE-10.0 BUPRENORPHINE SCREEN URINE([facility]) NONE DETECTED NONE-DETECTED, CUT METHADONE SCREEN(j) NONE DETECTED NONE -DETECTED, POGEME=329jx/mL pH BRIAN 5.1 4.0-10.0 SPECIFIC GRAVITY BRIAN 1.029 g/mL H 1.003-1. 020 FENTANYL([facility])URINE SCREEN NONE DETECTED NONE DETECTED, CUTOFF=1.0ng/mL March 15, 2021 [facility] P4 GLU,BUN,CREAT,LYTES,CA Specimen Type: PLASMA 11:43 AM [facility] Comment: Tests performed on BevyUp (405) SN:[id number] Ordering Provider: ISREAL FITZGERALD Report Released Date/Time: March 15, 2021 10:51 AM Reporting Lab: [facility] [address] [address] Performing Lab: [facility] [address] [address] UREA NITROGEN 12 mg/dL 7-25 SODIUM 141 mmol/L 135-145 POTASSIUM 4.7 mmol/L 3.5-5.0 CHLORIDE 106 mmol/L 100-110 CARBON DIOXIDE 26 mmol/L 20-30 ANION GAP 9 mmol/L 4-16 GLUCOSE 169 mg/dL H 65-100 CREATININE 0.95 mg/dl 0.5-1.5 CALCIUM 9.1 mg/dL 8.5-10.5 eGFR 58 mL/min L >60 March 15, 2021 [facility] LIPOPROTEIN CHOLESTEROL Specimen Type: PLASMA 11:43 AM [facility] FRACT. PANEL Comment: Tests performed on BevyUp (405) SN:[id number] Ordering Provider: ISREAL FITZGERALD Report Released Date/Time: March 15, 2021 10:51 AM Reporting Lab: [facility] [address] [address] Performing Lab: [facility] [address] [address] CHOLESTEROL 207 mg/dL H 0-199 TRIGLYCERIDE 136 [...] took place. Date/Time Current Smoking Status Comment [facility] Jul 17, 2020 11:00 AM VA-TOBACCO FORMER USER [facility] Tobacco Use History This section includes a history of the smoking, or tobacco-related health factors, that were collected on or before the date of the Encounter. The data comes from the [place] facility where the Encounter took place. Date/Time Smoking Status/Tobacco Use Comment [facility] Jul 17, 2020 11:00 AM VA-TOBACCO QUIT 15 YRS OR MORE [facility] Jul 19, 2019 10:33 AM VA-TOBACCO NEVER USED [facility] Jul 20, 2018 10:33 AM QUIT TOBACCO USE > 7 YEARS AGO [facility] Dec 23, 2016 10:27 AM LIFETIME NON-TOBACCO USER [facility] Nov 26, 2015 11:35 AM QUIT TOBACCO USE > 7 YEARS AGO [facility] May 19, 2005 08:38 AM LIFETIME NON-SMOKER [facility] Apr 23, 2004 11:39 AM LIFETIME NON-SMOKER [facility] May 15, 2003 10:08 AM LIFETIME NON-SMOKER [facility] [place] [facility] Dec 31, 2001 04:36 PM LIFETIME NON-SMOKER [facility] Advance Directives: All [...] 2017 ADVANCE DIRECTIVE LILLIAM DEGROOT ROSANGELA T [facility] Encounter Notes: All associated encounter notes This section contains the clinical notes associated to the Encounter. Date/Time Encounter Note(s) Provider Source March 10, 2021 03:20 PM PRIMARY CARE ADMINISTRATIVE NOTE: [place] LOCAL TITLE: Administrative Note/Primary Care [facility] STANDARD TITLE: PRIMARY CARE ADMINISTRATIVE NOTE DATE OF NOTE: MARCH 10, 2021@15:20 ENTRY DATE: MARCH 10, 2021@15:20:09 AUTHOR: NICK ELLIOTT EXP COSIGNER: URGENCY: STATUS: COMPLETED Administrative Note/Primary Care Has ADDE SUNSHINE KRYSTAL PACHECO [address] [place], [place] [address] Patient called regarding: Medication Refill for Medication: FAMOTIDINE TAB 20M G Instructions: 20MG ORAL HS Medication: METFORMIN TAB,SA 5 00MG Instructions: 2000MG ORAL QD Medication: ACETAMINOPHEN/CODE INE TAB Dispense Drug: CODEINE 30/ACETAMI NOPHEN 300MG TAB [x] Please Send PCP Pt requesting consult/referral for dermatology a s well. Several large moles /marlo/ NICK ELLIOTT Supervisory MSA Signed: 03/10/2021 15:22 Receipt Acknowledged By: 03/11/2021 12:38 /marlo/ Barrington ceron MSN, BLAST SETTER Nurse Practitioner Faculty 03/10/2021 15:48 /es/ MAGDY SALAZAR Registered Nurse 03/11/2021 ADDENDUM STATUS: COMPLETED Please schedule appt for eval of several large moles - needs to be seen by PCP first. /marlo/ Barrington Anderson MSN, BLAST SETTER Nurse Practitioner Faculty Signed: 03/11/2021 12:38 Receipt Acknowledged By: 03/11/2021 14:31 /es/ CECILIO CHUNG Registered Nurse 03/11/2021 15:09 /es/ MAGDY SALAZAR Registered Nurse 03/12/2021 07:59 /es/ NICK ELLIOTT Supervisory MSA 03/12/2021 ADDENDUM STATUS: COMPLETED Called Pt and scheduled w/PCP for 03/12/2021 [id number] KRYSTAL CHRISTINA PACHECO [address] [facility] [address] Dear . Krystal Christina Pacheco, Thank you for selecting the [facility] [place], [place] for your health care. Date/Time: MONDAY MARCH 15, 2021 10:00 AM Clinic: [facility] Augie MGRA Location: [facility] Provider: BARRINGTON ANDERSON Please bring all of your prescription and over t he counter medications. Wearing a mask is required at all f acilities and vistors are very restricted at this time. We ask that only t hose with appointments or seeking medical care enter our [facility] facilities. If you are unable to keep your appointment, you may contact this office by letter or by calling the telephone number garcia wn above. If you have private health insurance, please bety ng your insurance card(s) with you. The VA may bill private healt h insurance companies for the cost of treating any non-servi ce connected conditions. Upon check-in, please notify our personnel of an y change of address or telephone number. Again, thank you for letting us serve you. [employer]. Department of [facility] [address], [place] [address] TOLL FREE: [phone] /marlo/ NICK ELLIOTT Supervisory MSA Signed: 03/12/2021 07:59
--- OUTSIDE RECORDS SUMMARY | 2021-07-26 06:25 | XMS_ITS | Encounter Summary ---
:1950 Author Organization Department [facility] Address [address] [place] [address] Care Team Providers Name Role Phone BARRINGTON [...] MEDICARE MEDICARE PART May 06, PART A [id number] CLEMENTE TYRESE PATIENT (WNR) (M) A 2013 DE63 2 BBI MEDICARE MEDICARE PART May 06, PART B [id number] TYRESE CLEMENTE PATIENT (WNR) (M) B 2013 DE63 2 BBI [facility] Nov 06, WNR [id number] [phone] TYRESE CLEMENTE PATIENT HEALTH SYED(W 2017 3800 364 BBI PLAN NR) [facility] Nov 06, [id number] [phone] TYRESE RIOJAS PATIENT HEALTH -MART 2017 [id number] 364 BBI PLAN [place] Selected Encounter This section includes the information on record at [place] for the Encounter. Date/Time Encounter Type Encounter Description Reason Provider Source Jan 04, 2021 12:00 Outpatient Encounter EVENT (HISTORICAL) AM IHE Encounter Template Text not used [...] 20 appointments. The data comes from all [facility]. Appointment Date/Time Appointment Type Appointment Facili ty Name March 12, 2021 09:30 AM AMBULATORY - MEDICINE [facility] March 12, 2021 10:30 AM AMBULATORY - SURGERY [facility] March 15, 2021 10:00 AM AMBULATORY - MEDICINE [facility] Apr 14, 2021 01:15 PM AMBULATORY - SURGERY [facility] Jun 01, 2021 08:30 AM AMBULATORY - NONE [facility] Immunizations: All administered on the encounter date This section contains immunizations associated to the Encounter. Immunization Series Date Issued Reaction Comments COVID-19 (MODERNA), MRNA, LNP-S, PF, 100 1 Jan 04, 2021 MCG/0.5 ML DOSE Social History: Smoking Status (Most current) and [...] took place. Date/Time Current Smoking Status Comment [facility] Jul 17, 2020 11:00 AM VA-TOBACCO FORMER USER [facility] Tobacco Use History This section includes a history of the smoking, or tobacco-related health factors, that were collected on or before the date of the Encounter. The data comes from the [place] facility where the Encounter took place. Date/Time Smoking Status/Tobacco Use Comment [facility] Jul 17, 2020 11:00 AM VA-TOBACCO QUIT 15 YRS OR MORE [facility] Jul 19, 2019 10:33 AM VA-TOBACCO NEVER USED WH[facility] Jul 20, 2018 10:33 AM QUIT TOBACCO USE > 7 YEARS AGO [facility] Dec 23, 2016 10:27 AM LIFETIME NON-TOBACCO [facility]ER [facility] Nov 26, 2015 11:35 AM QUIT TOBACCO USE > 7 YEARS AGO [facility] May 19, 2005 08:38 AM LIFETIME NON-SMOKER [facility] Apr 23, 2004 11:39 AM LIFETIME NON-SMOKER [facility] May 15, 2003 10:08 AM LIFETIME NON-SMOKER [facility] Dec 31, 2001 04:36 PM LIFETIME NON-SMOKER [facility] Advance Directives: All historical and current [...] 2017 ADVANCE DIRECTIVE LILLIAM DEGROOT [facility]
--- OUTSIDE RECORDS SUMMARY | 2021-07-26 06:25 | XMS_ITS | Encounter Summary ---
:1950 Author Organization Department [facility] Address [address] [place] [address] Care Team Providers Name Role Phone BARRINGTON [...] MEDICARE MEDICARE PART May 06, PART A [id number] CLEMENTE ,TYRESE PATIENT (WNR) (M) A 2013 DE63 2 BBI MEDICARE MEDICARE PART May 06, PART B [id number] TYRESE CLEMENTE PATIENT (WNR) (M) B 2013 DE63 2 BBI [facility] Nov 06, WNR [id number] [phone] TYRESE CLEMENTE PATIENT HEALTH SYED(W 2017 3800 364 BBI PLAN NR) [facility] Nov 06, [id number] [phone] TYRESE RIOJAS PATIENT HEALTH -MART 2017 [id number] 364 BBI PLAN [place] Selected Encounter This section includes the information on record at [place] for the Encounter. Date/Time Encounter Type Encounter Description Reason Provider Source Jan 21, 2021 10:09 Outpatient Encounter TELEPHONE TRIAGE AM IHE Encounter Template Text not used by [facility] Plan of Treatment: Future Appointments (+ 6 months) and Future Tests (+/- 45 days) The Plan of Treatment section includes future care activities for the patient from all [place] treatment facilities. This section includes future appointments and future orders which are active, pending or scheduled.Future Appointments This section includes appointments that were scheduled to occur 6 months from the date of the Encounter, up to a maximum of 20 appointments. The data comes from all [facility]. Appointment Date/Time Appointment Type Appointment Facili ty Name March 12, 2021 09:30 AM AMBULATORY - MEDICINE [facility] March 12, 2021 10:30 AM [facility] March 15, 2021 10:00 AM AMBULATORY - MEDICINE [facility] Apr 14, 2021 01:15 PM [facility] Jun 01, 2021 08:30 AM AMBULATORY - NONE [facility] Jul 20, 2021 03:00 PM AMBULATORY - MEDICINE [facility] Social History: Smoking Status (Most current) and Tobacco Use (All prior to encounter date) This section includes the most current, and the historical, smoking and tobacco-related health factors from the [place] facility where the Encounter took place.Current Smoking Status This section includes the most current smoking, or tobacco-related health factor, from the [place] facility where the Encounter took place. Date/Time Current Smoking Status Comment Facility Jul 17, 2020 11:00 AM VA-TOBACCO FORMER USER [facility] Tobacco Use History This section includes a history of the smoking, or tobacco-related health factors, that were collected on or before the date of the Encounter. The data comes from the [place] facility where the Encounter took place. Date/Time Smoking Status/Tobacco Use Comment [facility] Jul 17, 2020 11:00 AM VA-TOBACCO QUIT 15 YRS OR MORE [facility] Jul 19, 2019 10:33 AM VA-TOBACCO NEVER USED [facility] Jul 20, 2018 10:33 AM QUIT TOBACCO USE > 7 YEARS AGO [facility] Dec 23, 2016 10:27 AM LIFETIME NON-TOBACCO USER [facility] Nov 26, 2015 11:35 AM QUIT TOBACCO USE > 7 YEARS AGO [facility] May 19, 2005 08:38 AM LIFETIME NON-SMOKER [place] [facility] [facility] Apr 23, 2004 11:39 AM LIFETIME NON-SMOKER [place] [facility] May 15, 2003 10:08 AM LIFETIME NON-SMOKER [place] [facility] Dec 31, 2001 04:36 PM LIFETIME NON-SMOKER [place] [facility] Advance Directives: All historical and current Section Date Range: From patient's date of to the date document was created. This section includes ALL of a patient's completed or amended [place] Advance and Rescinded Directives. The entries below indicate that a directive exists for the patient, but an actual copy is not included with this document. The data comes from all [place] facilities. Date Advance Directives Provider Source Jun 05, 2017 ADVANCE DIRECTIVE LILLIAM DEGROOT [facility] Encounter Notes: All associated encounter notes This section contains the clinical notes associated to the Encounter. Date/Time Encounter Note(s) Provider Source Jan 21, 2021 10:09 AM TELEPHONE ENCOUNTER NOTE: SACHI LIN AMBER [facility] LOCAL TITLE: VISN [address] [facility] STANDARD TITLE: TELEPHONE ENCOUNTER NOTE DATE OF NOTE: JAN 21, 2021@10:09:14 ENTRY DATE: JAN 21, 2021@10:13:47 AUTHOR: SACHI LIN EXP COSIGNER: URGENCY: STATUS: COMPLETED Type of call: MEDICATION REFILL. Caller Response: SENT TO PACT The patient, MACARENA CLEMENTE ([id number]) called the call center. Comments: please renew and mail METFORMIN TAB,SA 500MG Evaluation/Management Code: HC PRO PHONE CALL 5- 10 MIN ([phone]). Starting at: 01/21/2021 @ 10:09:14 AM Ending at: 01/21/2021 @ 10:13:28 AM Length: 4 minutes. Author: SACHI LIN Caller Area: * [place] The following identifiers were used to verify th is patient: . SSN. Chief Complaint: Not applicable to call. Class Code: Other specified counseling. Contact Patient's Email Address: /marlo/ SACHI LIN MSA Signed: 01/21/2021 10:13 Receipt Acknowledged By: * AWAITING SIGNATURE * BARRINGTON ANDERSON 01/21/2021 10:18 /es/ MAGDY SALAZAR Registered Nurse
--- OUTSIDE RECORDS SUMMARY | 2021-07-26 06:25 | XMS_ITS | Encounter Summary ---
:1950 Author Organization Department [facility] Address [address] [place] [id number] Care Team Providers Name Role Phone BARRINGTON [...] MEDICARE MEDICARE PART May 06, PART A [id number] CLEMENTE ,TYRESE PATIENT (WNR) (M) A 2013 DE63 2 BBI MEDICARE MEDICARE PART May 06, PART B [id number] TYRESE CLEMENTE PATIENT (WNR) (M) B 2013 DE63 2 BBI [facility] Nov 06, WNR [id number] [phone] TYRESE CLEMENTE PATIENT HEALTH SYED(W 2017 3800 364 BBI PLAN NR) [facility] Nov 06, [id number] [phone] TYRESE RIOJAS PATIENT [facility]ALTH [facility] 2017 [id number] 364 BBI PLAN [place] Selected Encounter This section includes the information on record at [place] for the Encounter. Date/Time Encounter Type Encounter Description Reason Provider Source Jan 21, 2021 10:11 Outpatient Encounter TELEPHONE TRIAGE AM IHE Encounter Template Text not used by [place] Plan of Treatment: Future Appointments (+ 6 [...] 20 appointments. The data comes from all [facility]. Appointment Date/Time Appointment Type Appointment Facili ty Name March 12, 2021 09:30 AM AMBULATORY - MEDICINE [facility] March 12, 2021 10:30 AM [facility] March 15, 2021 10:00 AM AMBULATORY - MEDICINE [facility] Apr 14, 2021 01:15 PM [facility] Jun 01, 2021 08:30 AM AMBULATORY - NONE [facility] Jul 20, 2021 03:00 PM AMBULATORY - MEDICINE [facility] Social History: Smoking Status (Most current) [...] AM VA-TOBACCO QUIT 15 YRS OR MORE [facility] Jul 19, 2019 10:33 AM VA-TOBACCO NEVER USED [facility] Jul 20, 2018 10:33 AM QUIT TOBACCO USE > 7 YEARS AGO [facility] Dec 23, 2016 10:27 AM LIFETIME NON-TOBACCO USER [facility] Nov 26, 2015 11:35 AM QUIT TOBACCO USE > 7 YEARS AGO [facility] May 19, 2005 08:38 AM LIFETIME NON-SMOKER [facility] Apr 23, 2004 11:39 AM LIFETIME NON-SMOKER [facility] May 15, 2003 10:08 AM LIFETIME NON-SMOKER [facility] [place] [facility] Dec 31, 2001 04:36 PM LIFETIME NON-SMOKER [facility] Advance Directives: All historical and [...] Jun 05, 2017 ADVANCE DIRECTIVE DEGROOTLILLIAM [facility] Encounter Notes: All associated encounter notes This section contains the clinical notes associated to the Encounter. Date/Time Encounter Note(s) Provider Source Jan 21, 2021 10:11 AM MEDICATION MGT NOTE: SACHI LIN AMBER [facility] LOCAL TITLE: OPIOID/CONTROLLED SUBSTANCE RENEWA L NOTE [facility] STANDARD TITLE: MEDICATION MGT NOTE DATE OF NOTE: JAN 21, 2021@10:11 ENTRY DATE: JAN 21, 2021@10:11:11 AUTHOR: SACHI LIN EXP COSIGNER: URGENCY: STATUS: COMPLETED Standard Opioid Renewal/Controlled Substance Not e Requested Medication: CODEINE 30/ACETAMINOPHEN 3 00MG TAB Mail to patient A Valid Consent for Long-Term Opioids for Pain i s on file and available for viewing in [employer]. CONSENT FOR LONG-T ERM OPIOIDS FOR PAIN Feb 03, 2015 A State Prescription Drug Monitoring Program (SP DMP) Review Note has been documented in the medical r ecord at least once in the last 12 months or as requir ed by state law. STATE PRESCRIPTION DRUG MONITORING PROGRAM (SPDM P) NOTE Dec 02, 2020 Drug Screen Urine Tox Screen 10 Months Collection DT Specimen Test Name Result Units Ref Range 08/14/2020 10:46 URINE !! COCAINE SCREEN NO NE DETECTED Ref: NONE-DETECTED, CUTOFF= 300 ng/mL 08/14/2020 10:46 URINE !! BENZODI NO NE DETECTED Ref: NONE-DETECTED, CUTOFF= 200 ng/mL 08/14/2020 10:46 URINE !! OPIATES SCREEN SC RN POS Ref: NONE-DETECTED, CUTOFF= 300 ng/mL 08/14/2020 10:46 URINE !! CR RAN 214.9 mg/dL 08/14/2020 10:46 URINE !! CANNABINOID SCRN NO NE DETECTED Ref: NONE-DETECTED, CUTOFF= 50 ng/mL 08/14/2020 10:46 URINE !! AMPHETAMINE SCRN NO NE DETECTED Ref: NONE-DETECTED, CUTOFF= 1000 ng/mL 08/14/2020 10:46 URINE !! pH BRIAN 5.1 4.0 - 10.0 08/14/2020 10:46 URINE !! OXYSCNU NO NE DETECTED Ref: NONE-DETECTED, PMZJQW=143uw/mL 08/14/2020 10:46 URINE !! METHADONE NO NE DETECTED Ref: NONE-DETECTED, CCOTTR=923wm/mL 08/14/2020 10:46 URINE !! ETOH URINE <10.0 mg/dL NEG 08/14/2020 10:46 URINE !! BUPREN NO NE DETECTED Ref: NONE-DETECTED, CUT-OFF=10ng/mL !! Indicates COMMENTS AVAILABLE...Refer to Inte rim Lab Report. /marlo/ SACHI LIN MSA Signed: 01/21/2021 10:11 Receipt Acknowledged By: * AWAITING SIGNATURE * BARRINGTON ANDRESON * AWAITING SIGNATURE * MAGDY SALAZAR
--- OUTSIDE RECORDS SUMMARY | 2021-07-26 06:25 | XMS_ITS | Encounter Summary ---
:1950 Author Organization Department [facility] Address [address] [place] [address] Care Team Providers Name Role Phone BARRINGTON [...] MEDICARE MEDICARE PART May 06, PART A [id number] TYRESE CLEMENTE PATIENT (WNR) (M) A 2013 DE63 2 BBI MEDICARE MEDICARE PART May 06, PART B [id number] TYRESE CLEMENTE PATIENT (WNR) (M) B 2013 DE63 2 BBI [facility] Nov 06, WNR [id number] [phone] TYRESE CLEMENTE PATIENT HEALTH SYED(W 2017 3800 364 BBI PLAN NR) [facility] Nov 06, [id number] [phone] TYRESE RIOJAS PATIENT HEALTH -[facility] 2017 [id number] 364 BBI PLAN [place] Selected Encounter This section includes the information on record at [place] for the Encounter. Date/Time Encounter Type Encounter Description Reason Provider Source Oct 21, 2020 03:00 Outpatient Encounter TELEPHONE/MEDICINE PM IHE Encounter Template Text not used by [place] Plan of Treatment: Future Appointments (+ 6 months) and Future Tests (+/- 45 days) The Plan of Treatment section includes future care activities for the patient from all [place] treatment facilities. This section includes future appointments and future orders which are active, pending or scheduled.Future Appointments This section includes appointments that were scheduled to occur 6 months from the date of the Encounter, up to a maximum of 20 appointments. The data comes from all [facility]. Appointment Date/Time Appointment Type Appointment Facili ty Name March 12, 2021 09:30 AM AMBULATORY - [place]ICINE [place] [facility] March 12, 2021 10:30 AM AM[facility] - [place] [facility] March 15, 2021 10:00 AM AMBULATORY - MEDICINE [facility] [place] [facility] Apr 14, 2021 01:15 PM AMBULATORY - SURGERY [place] [facility] Advance Directives: All historical and current Section Date Range: From patient's date of to the date document was created. This section includes ALL of a patient's completed or amended [place] Advance and Rescinded Directives. The entries below indicate that a directive exists for the patient, but an actual copy is not included with this document. The data comes from all [place] facilities. Date Advance Directives Provider Source Jun 05, 2017 ADVANCE DIRECTIVE LILLIAM DEGROOT [place] [facility] Encounter Notes: All associated encounter notes This section contains the clinical notes associated to the Encounter. Date/Time Encounter Note(s) Provider Source Oct 21, 2020 03:43 PM NO SHOW NOTE: NAYELY BACK [facility] LOCAL TITLE: No Show/Cancelled Clinic Note ARCENIO RAMÍREZ [facility] STANDARD TITLE: NO SHOW NOTE DATE OF NOTE: OCT 21, 2020@15:43 ENTRY DATE: OCT 21, 2020@15:44:02 AUTHOR: NAYELY BACK EXP COSIGNER: URGENCY: STATUS: COMPLETED Attempted to call the vetera n twice; I received the 's voicemail and left a message requesting a call back with contact in formation. /marlo/ NAYEYL BACK Attending Physician Signed: 10/21/2020 15:46
--- OUTSIDE RECORDS SUMMARY | 2021-07-26 06:25 | XMS_ITS ---
:1950 Author Organization Department [facility] Address [address] [place] [address] Care Team Providers Name Role Phone BARRINGTON [...] MEDICARE MEDICARE PART May 06, PART A [id number] TYRESE CLEMENTE PATIENT (WNR) (M) A 2013 DE63 2 BBI MEDICARE MEDICARE PART May 06, PART B [id number] CHYNATYRESE PATIENT (WNR) (M) B 2013 DE63 2 BBI [facility] Nov 06, WNR [id number] [phone] TYRESE CLEMENTE PATIENT HEALTH SYED(W 2017 3800 364 BBI PLAN NR) [facility] Nov 06, [id number] [phone] TYRESE RIOJAS PATIENT HEALTH -MART 2017 [id number] 364 BBI PLAN [place] Selected Encounter This section includes the information on record at [place] for the Encounter. Date/Time Encounter Type Encounter Description Reason Provider Source Oct 23, 2020 11:55 Outpatient Encounter TELEPHONE TRIAGE AM IHE Encounter Template Text not used by [place] Plan of Treatment: Future Appointments (+ 6 months) and Future Tests (+/- 45 days) The Plan of Treatment section includes future care activities for the patient from all [place] treatment facilities. This section includes future appointments [...] 12, 2021 09:30 AM AMBULATORY - MEDICINE [facility] March 12, 2021 10:30 AM AMBULATORY - SURGERY [facility] March 15, 2021 10:00 AM AMBULATORY - MEDICINE [facility] Apr 14, 2021 01:15 PM AMBULATORY - SURGERY [facility] Social History: Smoking Status (Most current) and Tobacco Use (All prior to encounter date) This section includes the most current, and the historical, smoking and tobacco-related health factors from the [place] facility where the Encounter took place.Current Smoking Status This section includes the most current smoking, or tobacco-related health factor, from the [place] facility where the Encounter took place. Date/Time Current Smoking Status Comment Facility Jul 17, 2020 11:00 AM VA-TOBACCO FORMER USER [facility] Tobacco Use History This section includes a history of the smoking, or tobacco-related health factors, that were collected on or before the date of the Encounter. The data comes from the [place] facility where the Encounter took place. Date/Time Smoking Status/Tobacco Use Comment [facility] Jul 17, 2020 11:00 AM VA-TOBACCO QUIT [address] [facility] Jul 19, 2019 10:33 AM VA-TOBACCO NEVER USED [facility] Jul 20, 2018 10:33 AM QUIT TOBACCO USE > [address] [facility] Dec 23, 2016 10:27 AM LIFETIME NON-TOBACCO USER [facility] Nov 26, 2015 11:35 AM QUIT TOBACCO USE > [address] [facility] May 19, 2005 08:38 AM LIFETIME NON-SMOKER [facility] Apr 23, 2004 11:39 AM LIFETIME NON-SMOKER [facility] May 15, 2003 10:08 AM LIFETIME NON-SMOKER [facility] Dec 31, 2001 04:36 PM LIFETIME NON-SMOKER [facility] Advance Directives: All historical and current Section Date Range: From patient's date of to the date document was created. This section includes ALL of a patient's completed or amended [place] Advance and Rescinded Directives. The entries below indicate that a directive exists for the patient, but an actual copy is not included with this document. The data comes from all [place] facilities. Date Advance Directives Provider Source Jun 05, 2017 ADVANCE DIRECTIVE LILLIAM DEGROOT [facility] Encounter Notes: All associated encounter notes This section contains the clinical notes associated to the Encounter. Date/Time Encounter Note(s) Provider Source Oct 23, 2020 11:55 AM MEDICATION MGT NOTE: LOUISE SINGLETARY [facility] LOCAL TITLE: OPIOID/CONTROLLED SUBSTANCE RENEWA L NOTE STANDARD TITLE: MEDICATION MGT NOTE DATE OF NOTE: OCT 23, 2020@11:55 ENTRY DATE: OCT 23, 2020@11:56:09 AUTHOR: LOUISE SINGLETARY EXP COSIGNER: URGENCY: STATUS: COMPLETED Standard Opioid Renewal/Controlled Substance Not e Requested Medication: CODEINE 30/ACETAMINOPHEN 3 00MG TAB Mail to patient A Valid Consent for Long-Term Opioids for Pain i s on file and available for viewing in [employer]. CONSENT FOR LONG-T ERM OPIOIDS FOR PAIN Feb 03, 2015 A State Prescription Drug Monitoring Program (SP DMP) Review Note has been documented in the medical r ecord at least once in the last 12 months or as requir ed by state law. STATE PRESCRIPTION DRUG MONITORING PROGRAM (SPDM P) NOTE Aug 13, 2020 Drug Screen Urine Tox Screen 10 [...] !! OXYSCNU NO NE DETECTED Ref: NONE-DETECTED, LHBTYL=819hu/mL 08/14/2020 10:46 URINE !! METHADONE NO NE DETECTED Ref: NONE-DETECTED, CPNCLT=933ay/mL 08/14/2020 10:46 URINE !! ETOH URINE <10.0 mg/dL NEG 08/14/2020 10:46 URINE !! BUPREN NO NE DETECTED Ref: NONE-DETECTED, CUT-OFF=10ng/mL !! Indicates COMMENTS AVAILABLE...Refer to Inte rim Lab Report. /es/ LOUISE SINGLETARY MSA Signed: 10/23/2020 11:56 Receipt Acknowledged By: * AWAITING SIGNATURE * BARRINGTON ANDERSON 10/23/2020 12:03 /es/ MAGDY SALAZAR Registered Nurse
--- OUTSIDE RECORDS SUMMARY | 2021-07-26 06:26 | XMS_ITS | Encounter Summary ---
:1950 Author Organization Department [facility] Address [address] [place] [address] Care Team Providers Name Role Phone BARRINGTON [...] MEDICARE MEDICARE PART May 06, PART A [id number] TYRESE CLEMENTE PATIENT (WNR) (M) A 2013 DE63 2 BBI MEDICARE MEDICARE PART May 06, PART B [id number] CLEMENTE TYRESE PATIENT (WNR) (M) B 2013 DE63 [address] [facility] USFA Nov 06, WNR [id number] [phone] TYRESE CLEMENTE PATIENT HEALTH SYED(W 2017 [id number] 364 BBI PLAN NR) [facility] Nov 06, [id number] [phone] TYRESE RIOJAS PATIENT [facility] 2017 [id number] BBI PLAN [place] Selected Encounter This section includes the information on record at [place] for the Encounter. Date/Time Encounter Type Encounter Reason Provider Source Description Sep 22, 2020 Outpatient OCCUPATIONAL ICD-10-CM M20.20 FADIA LYNNE 10:20 AM Encounter THERAPY Hallux rigidErik zamora unspecified foot with Provider Comments: Bilateral acquired hallux limitus of great toes (SCT [id number] 2) IHE Encounter Template Text not used by [facility] Assessments - Encounter Diagnoses This section includes the primary and secondary diagnoses documented forthe Encounter. Date/Time Primary/Secondary Diagnosis Name Provider Source Diagnosis Sep 23, 2020 PRIMARY Hallux rigidus, MAIA LYNNE 10:37 AM unspecified foot [facility] Plan of Treatment: Future Appointments (+ 6 months) and Future Tests (+/- 45 days) The Plan of Treatment section includes future care activities for the patient from all [place] treatment facilities. This section includes future appointments and future orders which are active, pending or scheduled.Future Appointments This section includes appointments that were scheduled to occur 6 months from the date of the Encounter, up to a maximum of 20 appointments. The data [facility] Appointment Date/Time Appointment Type Appointment Facili ty Name Oct 21, 2020 03:00 PM AMBULATORY - MEDICINE [facility] March 12, 2021 09:30 AM AMBULATORY - MEDICINE [facility] March 12, 2021 10:30 AM AMBULATORY - SURGERY [facility] March 15, 2021 10:00 AM AMBULATORY - MEDICINE [facility] Social History: Smoking Status (Most current) and Tobacco Use (All prior to encounter date) This section includes the most current, and the historical, smoking and tobacco-related health factors from the [place] facility where the Encounter took place.Current Smoking Status This section includes the most current smoking, or tobacco-related health factor, from the [place] facility where the Encounter took place. Date/Time Current Smoking Status Comment Facility Jul 17, 2020 11:00 AM VA-TOBACCO FORMER USER [facility] Tobacco Use History This section includes a history of the smoking, or tobacco-related health factors, that were collected on or before the date of the Encounter. The data comes from the [place] facility where the Encounter took place. Date/Time Smoking Status/Tobacco Use Comment [facility] Jul 17, 2020 11:00 AM VA-TOBACCO QUIT 15 YRS OR MORE [facility] Jul 19, 2019 10:33 AM [facility]CO [facility] Jul 20, 2018 10:33 AM QUIT TOBACCO USE > 7 YEARS AGO [facility] Dec 23, 2016 10:27 AM LIFETIME NON-TOBACCO USER [facility] Nov 26, 2015 11:35 AM QUIT TOBACCO USE > 7 YEARS AGO [facility] May 19, 2005 08:38 AM LIFETIME NON-SMOKER [facility] Apr 23, 2004 11:39 AM LIFETIME NON-SMOKER [facility] May 15, 2003 10:08 AM LIFETIME NON-SMOKER [facility] Dec 31, 2001 04:36 PM LIFETIME NON-SMOKER [facility] Advance Directives: All historical and current Section Date Range: From patient's date of to the date document was created. This section includes ALL of a patient's completed or amended [place] Advance and Rescinded Directives. The entries below indicate that a directive exists for the patient, but an actual copy is not included with this document. The data comes from all [place] facilities. Date Advance Directives Provider Source Jun 05, 2017 ADVANCE DIRECTIVE LILLIAM DEGROOT [facility] Encounter Notes: All associated encounter notes This section contains the clinical notes associated to the Encounter. Date/Time Encounter Note(s) Provider Source Sep 23, 2020 10:08 AM OCCUPATIONAL THERAPY OUTPATIENT CONSUL T: MAIA LYNNE [facility] TITLE: CONSULT: Occupational Therapy Outp atient [facility] STANDARD TITLE: OCCUPATIONAL THERAPY OUTPATIENT CONSULT DATE OF NOTE: SEP 23, 2020@10:08 ENTRY DATE: SEP 23, 2020@10:08:44 AUTHOR: MAIA LYNNE EXP COSIGNER: BARRINGTON ANDERSON URGENCY: STATUS: COMPLETED Order Information To Service: OCCUPATIONAL THERAPY OUTP ATIENT From Service: GILMA PRICE PACT 3 E WH TELE Requesting Provider: BARRINGTON ANDERSON Service is to be rendered on an OUTPATIENT basis Place: Folder Hand's choice Urgency: Routine Clinically Ind. Date: Aug 14, 2020 Orderable Item: OCCUPATIONAL THERAPY OUTP ATIENT Consult: Consult Request Provisional Diagnosis: Pain, unspecified(ICD-10- CM R52.) Reason For Request: 1. Diagnosis requiring OT intervention: Left 5th finger intermittent pain 2. Requested intervention: Eval and treat, splin t if appropriate Start of OT Plan of care (POC): Today Treatment Time: 15 minutes OT Evaluation (55824 ) S: It is hypersensitive O: Evaluate for Left 5th finger intermittent helga n Given the presentation of th e current symptoms it would appear that the may have a hypersensitivity in the L 5th finger caused by possible carpal tunnel syndrome. The L 5th digit does exhibit some late ral instability so OT has suggested a abi strap system for when the vete ran is being active. The hypertensives does not appear to be nerve damage and to cause from injury. OT has issued coral universal lacer brace for night time use only and also a positional pillow for nighttime use. Already issued to pt. - [place] Lacer wrist Orthosis, universal, left, #[id number] - Abi strap system Item to be shipped home Med[employer] Shoulder Relief System Item #[id number] The above results and recommendations were expla ined to the , who verbally acknowledged an understanding thereof. The plan of care, the expected benefits, and kno wn risks associated with the recommended treatment, alternative treatments, o r no treatment with the associated risks has been discussed with the vet negro (or surrogate). The (or surrogate) had an opportunit y to ask questions which were answered to the 's (or surrogate's) satisfaction. The patient (or surrogate) agreed to proceed with the recommended plan of c are. As the undersigned physician, I certify the need for these services furnished under this plan of treatment and while under my care. Please do not hesitate to call contact me with q uestions/concerns- Thank you! A: Pt. understands instruction P: 1x only for assessment and fitting of a splin t. Follow PRN /marlo/ MAIA LYNNE Occupational therapist registered/ Licensed in [place] Signed: 09/23/2020 10:37 /marlo/ Barrington Anderson MSN, FOOD EXPEDITOR Nurse Practitioner Faculty Cosigned: 09/23/2020 17:05
--- OUTSIDE RECORDS SUMMARY | 2021-07-26 06:26 | XMS_ITS | Encounter Summary ---
:1950 Author Organization Department [facility] Address [address] [place] [id number] Care Team Providers Name Role Phone BARRINGTON [...] MEDICARE MEDICARE PART May 06, PART A [id number] TYRESE CLEMENTE PATIENT (WNR) (M) A 2013 DE63 2 BBI MEDICARE MEDICARE PART May 06, PART B [id number] CHYNA TYRESE PATIENT (WNR) (M) B 2013 DE63 2 BBI [facility] Nov 06, WNR [id number] [phone] TYRESE CLEMENTE PATIENT HEALTH [facility](W 2017 [id number] 364 BBI PLAN NR) [facility] Nov 06, [id number] [phone] TYRESE RIOJAS PATIENT [facility] 2017 [id number] 364 BBI PLAN [place] Selected Encounter This section includes the information on record at [place] for the Encounter. Date/Time Encounter Type Encounter Reason Provider Source Description Sep 22, 2020 Outpatient OPTOMETRY ICD-10-CM Z46.0 ADRY EL 10:30 AM Encounter Encounter for R fit/adjst of spectacles and contact lenses with Provider Comments: Encounter for Fitting and Adjustment of Spectacles and Contact Lenses IHE Encounter Template Text not used by VA Assessments - Encounter Diagnoses This section includes the primary and secondary diagnoses documented forthe Encounter. Date/Time Primary/Secondary Diagnosis Name Provider Source Diagnosis Sep 22, 2020 PRIMARY Encounter for MALLORY LAWRENCE 11:12 AM fit/adjst of N [facility] spectacles and contact lenses Plan of Treatment: Future Appointments (+ 6 months) and Future Tests (+/- 45 days) The Plan of Treatment section includes future care activities for the patient from all [place] treatment facilities. This section includes future appointments and future orders which are active, pending or scheduled.Future Appointments This section includes appointments that were scheduled to occur 6 months from the date of the Encounter, up to a maximum of 20 appointments. The [facility] Appointment Date/Time Appointment Type Appointment Facili ty Name Oct 21, 2020 03:00 PM AMBULATORY - MEDICINE [facility] March 12, 2021 09:30 AM AMBULATORY - MEDICINE [facility] March 12, 2021 10:30 AM AMBULATORY - SURGERY [facility] March 15, 2021 10:00 AM AMBULATORY - MEDICINE [facility] Social History: Smoking Status (Most current) and Tobacco Use (All prior to encounter date) This section includes the most current, and the historical, smoking and tobacco-related health factors from the [place] facility where the Encounter took place.Current Smoking Status This section includes the most current smoking, or tobacco-related health factor, from the [facility] facility where the Encounter took place. Date/Time Current Smoking Status Comment Facility Jul 17, 2020 11:00 AM VA-TOBACCO FORMER USER [facility] Tobacco Use History This section includes a history of the smoking, or tobacco-related health factors, that were collected on or before the date of the Encounter. The data comes from the [place] facility where the Encounter took place. Date/Time Smoking Status/Tobacco Use Comment [facility] Jul 17, 2020 11:00 AM VA-TOBACCO QUIT 15 YRS OR MORE [facility] Jul 19, 2019 10:33 AM VA-TOBACCO NEVER USED [facility] Jul 20, 2018 10:33 AM QUIT TOBACCO USE > 7 YEARS AGO [facility] Dec 23, 2016 10:27 AM LIFETIME NON-TOBACCO USER [facility] Nov 26, 2015 11:35 AM QUIT TOBACCO USE > 7 YEARS AGO [facility] May 19, 2005 08:38 AM LIFETIME NON-SMOKER [facility] [place] [facility] Apr 23, 2004 11:39 AM LIFETIME NON-SMOKER [facility] [place] [facility] May 15, 2003 10:08 AM LIFETIME NON-SMOKER [facility] [place] [facility] Dec 31, 2001 04:36 PM LIFETIME NON-SMOKER [place] [facility] Advance Directives: All historical and current Section Date Range: From patient's date of to the date document was created. This section includes ALL of a patient's completed or amended VA Advance and Rescinded Directives. The entries below indicate that a directive exists for the patient, but an actual copy is not included with this document. The data comes from all [place] facilities. Date Advance Directives Provider Source Jun 05, 2017 ADVANCE DIRECTIVE LILLIAM DEGROOT [facility] Encounter Notes: All associated encounter notes This section contains the clinical notes associated to the Encounter. 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 [place] was informed that he or she may return t o the drop in clinic for fittings,repairs, and adjustments as needed. 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
--- OUTSIDE RECORDS SUMMARY | 2021-07-26 06:26 | XMS_ITS ---
:1950 [address] [facility] Address [address] [place] [address] Care Team Providers Name Role Phone BARRINGTON [...] MEDICARE MEDICARE PART May 06, PART A [id number] CHYNATYRESE PATIENT (WNR) (M) A 2013 DE63 2 BBI MEDICARE MEDICARE PART May 06, PART B [id number] CLEMENTE TYRESE PATIENT (WNR) (M) B 2013 DE63 2 BBI [facility] Nov 06, WNR [id number] [phone] TYRESE CLEMENTE PATIENT HEALTH [facility](W 2017 [id number] 364 BBI PLAN NR) [facility] Nov 06, [id number] [phone] TYRESE RIOJAS PATIENT [facility] 2017 [id number] 364 BBI PLAN [place] Selected Encounter This section includes the information on record at ID for the Encounter. Date/Time Encounter Type Encounter Description Reason Provider Source Sep 24, 2020 03:21 Outpatient Encounter COMP [facility] PM IHE [...] 20 appointments. The data comes from all [facility]. Appointment Date/Time Appointment Type Appointment Facili ty Name Oct 21, 2020 03:00 PM AMBULATORY - MEDICINE [facility] March 12, 2021 09:30 AM AMBULATORY - MEDICINE [facility] March 12, 2021 10:30 AM AMBULATORY - SURGERY [facility] March 15, 2021 10:00 AM AMBULATORY - MEDICINE [facility] Social History: Smoking Status [...] 11:00 AM VA-TOBACCO FORMER USER [facility] Tobacco Use History This section includes a history of the smoking, or tobacco-related health factors, that were collected on or before the date of the Encounter. The data comes from the [place] facility where the Encounter took place. Date/Time Smoking Status/Tobacco Use Comment [facility] Jul 17, 2020 11:00 AM VA-TOBACCO QUIT 15 YRS OR MORE [facility] Jul 19, 2019 10:33 AM VA-TOBACCO NEVER USED [facility] Jul 20, 2018 10:33 AM QUIT TOBACCO USE > 7 YEARS AGO [facility] Dec 23, 2016 10:27 AM LIFETIME NON-TOBACCO USER [facility] Nov 26, 2015 11:35 AM QUIT TOBACCO USE > 7 YEARS AGO [facility] May 19, 2005 08:38 AM LIFETIME NON-SMOKER [facility] Apr 23, 2004 11:39 AM LIFETIME NON-SMOKER [facility] May 15, 2003 10:08 AM LIFETIME NON-SMOKER [facility] [place] [facility] Dec 31, 2001 04:36 PM LIFETIME NON-SMOKER [facility] [place] [facility] Advance Directives: All historical and current Section [...] 2017 ADVANCE DIRECTIVE LILLIAM DEGROOT [facility] Encounter Notes: All associated encounter notes This section contains the clinical notes associated to the Encounter. Date/Time Encounter Note(s) Provider Source Sep 24, 2020 03:21 PM [facility] OUTPATIENT LETTERS: BARRINGTON RODRIGUEZ [facility] LOCAL TITLE: Mammogram Normal Results Letter [facility] STANDARD [facility] DATE OF NOTE: SEP 24, 2020@15:21 ENTRY DATE: SEP 24, 2020@15:21:35 AUTHOR: BARRINGTON ANDERSON EXP COSIGNER: URGENCY: STATUS: COMPLETED DEPARTMENT OF [facility] [address] [place] [address] SEP 24, 2020 MS. MACARENA CLEMENTE [address] [place] [address] Dear Ms. Macarena Clemente: I am pleased to report that the result of your screening mammogram at [facility] did not show signs of malig yael or abnormal findings. You will be due for your next screening mammogra m in a year. Please note that mammography does not detect all breast cancers. Regular clinical breast exams by a medical provider and mammograms are all part of a recommended program for the early detection of b reast disease. If you notice any breast lumps, nipple discharge , skin puckering or other worrisome breast symptoms, don't wait for your n ext routine check-up, but make an appointment for evaluation. If you have any questions, please contact your p daniel by calling the [facility] at [phone]. You may also get health information at: [email or web address] Sincerely, Barrington Anderson MSN, VENEER SORTER Nurse Practitioner Faculty
--- OUTSIDE RECORDS SUMMARY | 2021-07-26 06:27 | XMS_ITS | Encounter Summary ---
:1950 Author Organization Department [facility] Address [address] [place] [id number] Care Team Providers Name Role Phone BARRINGTON [...] MEDICARE MEDICARE PART May 06, PART A [id number] CLEMENTE TYRESE PATIENT (WNR) (M) A 2013 DE63 2 BBI MEDICARE MEDICARE PART May 06, PART B [id number] TYRESE CLEMENTE PATIENT (WNR) (M) B 2013 DE63 2 BBI [facility] USFA Nov 06, WNR [id number] [phone] TYRESE CLEMENTE PATIENT HEALTH [facility](W 2017 [id number] BBI PLAN NR) [facility] Nov 06, [id number] [phone] TYRESE RIOJAS PATIENT [facility]ALTH [facility] 2017 [id number] BBI PLAN [place] Selected Encounter This section includes the information on record at [place] for the Encounter. Date/Time Encounter Type Encounter Reason Provider Source Description Aug 14, 2020 OFFICE/OUTPATIEN GERIPACT ICD-10-CM CASSY ANDERSON 09:00 AM T VISIT EST R53.83 Other DGET K fatigue with Provider Comments: Other Fatigue IHE Encounter Template Text not used by [facility] Assessments - Encounter Diagnoses This section includes the primary and secondary diagnoses documented forthe Encounter. Date/Time Primary/Secondary Diagnosis Name Provider Source Diagnosis Aug 14, 2020 PRIMARY Other fatigue CASSY ANDERSON 05:53 PM DGET K T [facility] Aug 14, 2020 SECONDARY Hyperlipidemia, CASSY ANDERSON R 05:53 PM unspecified DGET K [place] [facility] Aug 14, 2020 SECONDARY Type 2 diabetes CASSY ANDERSON R 05:53 PM mellitus without DGET K [facility] complications Plan of Treatment: Future Appointments (+ [...] 20 appointments. The data comes from all [place] [facility]. Appointment Date/Time Appointment Type Appointment Facili ty Name Sep 22, 2020 09:00 AM AMBULATORY - [place]GERY [place] [facility] Sep 22, 2020 10:30 AM AMBULATORY - SURGERY [place] [facility] Oct 21, 2020 03:00 PM AMBULATORY - MEDICINE [facility] Lab Results: +/- 30 days of the [...] Result - Unit Interpretation Reference Range Comment Aug 14, 2020 [facility] DRUG SCREEN+ETG(JIMMY) Specimen Type: URINE 10:46 AM [facility] Comment: The ETG test was developed and its performance characteristics determined by [facility]. It has not been cleared or approved by the FDA. The laboratory is regulated under CLIA as qualified to perform high-complexity testing. This test is used for clinical purposes. It should not be regarded as investigational or for research. The ETG assay is an enzyme immunoassay intended f or the qualitati ve determination of ethyl glucuronide in human urine at a cutoff of 500 ng/mL. Ordering Provider: BARRINGTON ANDERSON Report Released Date/Time: Jul 17, 2020 12:42 PM Reporting Lab: [facility] [address] [facility] [address] Performing Lab: [facility] [address] [facility] [address] COCAINE SCREEN NONE DETECTED NONE-DETECT ED, CUTOFF= 300 ng/mL BENZODIAZEPINES SCREEN NONE DETECTED NON E-DETECTED, CUTOFF= 200 ng/mL OPIATES SCREEN SCRN POS NONE-DETECTED, CUTOFF= 300 ng/mL CREATININE (URINE,RANDOM) 214.9 mg/dL CANNABINOID SCRN NONE DETECTED NONE-DETE CTED, CUTOFF= 50 ng/mL AMPHETAMINE SCRN NONE DETECTED NONE-DETE CTED, CUTOFF= 1000 ng/mL OXYCODONE SCREEN URINE([facility]) NONE DETECTED NONE-DETECTED, UFVBGU=917iq/mL ETOH URINE <10.0 mg/dL NEGATIVE-10.0 BUPRENORPHINE SCREEN URINE(j) NONE DETECTED NONE-DETECTED, CUT METHADONE SCREEN(wrj) NONE DETECTED NONE -DETECTED, NOMJWW=851rj/mL pH BRIAN 5.1 4.0-10.0 ETHYL GLUCURONIDE(j) NONE DETECTED NON E DETECTED, SDKXIC=312sg/mL SPECIFIC GRAVITY BRIAN 1.025 g/mL H 1.003-1. 020 FENTANYL(J)URINE SCREEN NONE DETECTED NONE DETECTED, CUTOFF=1.0ng/mL Aug 14, 2020 [facility] LIPOPROTEIN Specimen Type: PLASMA 10:45 AM [facility] CHOLESTEROL FRACT. No comment en tered. PANEL Ordering Provider: BARRINGTON ANDERSON Report Released Date/Time: Aug 14, 2020 09:50 AM Reporting Lab: [facility] [address] [facility] [address] Performing Lab: [facility] [address] [facility] [facility] [address] CHOLESTEROL 122 mg/dL 0-199 TRIGLYCERIDE 100 mg/dL 0-149 HDL CHOLESTEROL 39 mg/dL L >40 LDL CHOLESTEROL (CALC) 63 mg/dl 0-129 Aug 14, 2020 [facility] GLYCOHEMOGLOBIN (A1C Specimen Type: BLOOD 10:45 AM [facility] ONLY) No comment enter ed. Ordering Provider: BARRINGTON ANDERSON Report Released Date/Time: Aug 14, 2020 09:50 AM Reporting Lab: [place] [facility] [address] [facility] [place] [address] Performing Lab: [place] [facility] [address] [facility] [place] [address] HEMOGLOBIN A1C 8.1 % H 4.0-5.6 Aug 14, 2020 10:45 [place] VITAMIN B-12 Specimen Type: SERUM AM [facility] Comment: TSH within normal limits. Reflex testing not required. Ordering Provider: BARRINGTON ANDERSON Report Released Date/Time: Aug 14, 2020 09:50 AM Reporting Lab: [place] [facility] [address] [facility] [address] Performing Lab: [place] [facility] [address] [facility] [address] VITAMIN B-12 209 pg/mL 200-900 Aug 14, 2020 10:45 [place] VIT D 25-OH([facility]) Specimen Type: SERUM AM [facility] Comment: TSH within normal limits. Reflex testing not required. Ordering Provider: BARRINGTON ANDERSON Report Released Date/Time: Aug 14, 2020 09:50 AM Reporting Lab: [place] [facility] [address] [facility] [place] [address] Performing Lab: [place] [facility] [address] [facility] [place] [address] VIT D 25-OH([facility]) 22.5 ng/mL 20-50 Aug 14, 2020 10:45 [place] THYROID TESTING Specimen Type: SERUM AM [facility] Comment: TSH within normal limits. Reflex testing not required. Ordering Provider: BARRINGTON ANDERSON Report Released Date/Time: Aug 14, 2020 09:50 AM Reporting Lab: [place] [facility] [address] [facility] [place] [address] Performing Lab: [place] [facility] [address] [facility] [place] [address] TSH 1.67 uIU/mL 0.35-5.00 REFLEX TESTING comment Aug 14, 2020 10:45 [facility] CBC PROFILE Specimen Type: BLOOD AM [facility] No comment enter ed. Ordering Provider: BARRINGTON ANDERSON Report Released Date/Time: Aug 14, 2020 09:50 AM Reporting Lab: [facility] [address] [facility] [facility] [address] Performing Lab: [facility] [address] [facility] [address] WBC 7.7 10*3/uL 4.5-11.0 RBC 4.81 10*6/uL 3.93-5.16 HGB 14.2 g/dl 12-15.2 HEMATOCRIT 44.5 % 36.6-45.6 MCV 92.5 fl 82-99 MCH 29.5 pg 26.2-32.6 MCHC 31.9 g/dl 30.8-35.1 PLT 302 10*3/uL 140-360 MPV 10.0 fl 9.2-12.4 RDW 12.9 % 12.0-16.0 LYMPH % 25.6 % 14.0-42.3 MONO % 7.6 % 5.1-13.7 NEUT % 64.9 % 43.7-75.8 EOS % 0.8 % 0.4-6.8 BASO % 0.8 % 0.1-2.0 IG % 0.3 % 0.0-0.7 NUCLEATED RED CELLS 0.0 /100 WBC 0.0-0.0 ABSOLUTE IG 0.0 10*3/uL 0-0.06 ABSOLUTE BASOPHILS 0.1 10*3/uL 0.01-0.13 ABSOLUTE EOS. 0.1 10*3/uL 0.03-0.44 ABSOLUTE LYMPHOCYTES 2.0 10*3/uL 1.0-3.2 ABSOLUTE MONOCYTES 0.6 10*3/uL 0.3-1.1 ABSOLUTE GRANULOCYTES 5.0 10*3/uL 2.2-7. 6 ABSOLUTE NRBC 0.00 10*3/uL 0-0 Aug 14, 2020 [facility] P4 GLU,BUN,CREAT,LYTES,CA Specimen Type: PLASMA 10:45 AM [facility] No comment enter ed. Ordering Provider: BARRINGTON ANDERSON Report Released Date/Time: Aug 14, 2020 09:50 AM Reporting Lab: [facility] [address] [facility] [address] Performing Lab: [facility] [address] [facility] [address] UREA NITROGEN 12 mg/dL 7-25 SODIUM 141 mmol/L 135-145 POTASSIUM 3.9 mmol/L 3.5-5.0 CHLORIDE 105 mmol/L 100-110 CARBON DIOXIDE 27 mmol/L 20-30 ANION GAP 9 mmol/L 4-16 GLUCOSE 153 mg/dL H 65-100 CREATININE 0.92 mg/dl 0.5-1.5 CALCIUM 9.5 mg/dL 8.5-10.5 eGFR 60 mL/min >60 Aug 14, 2020 10:45 [facility] LIVER PROFILE Specimen Type: PLASMA [facility] No comment enter ed. Ordering Provider: BARRINGTON ANDERSON Report Released Date/Time: Aug 14, 2020 09:50 AM Reporting Lab: [facility] [address] [facility] [address] Performing Lab: [facility] [address] [facility] [address] PROTEIN, TOTAL 6.8 g/dL 6.0-8.5 ALBUMIN 3.8 g/dL 3.2-5.0 BILIRUBIN, TOTAL 0.7 mg/dL 0.2-1.2 ALKALINE PHOSPHATASE 67 U/L 40-150 ALT(SGPT) 32 U/L 7-52 AST(SGOT) 21 U/L 5-34 FIB-4 SCORE 0.87 INDEX <2.67 Vital Signs: All taken on the encounter date This section contains inpatient and outpatient Vital Signs collected on the date of the Encounter. Date/Time Temperature Pulse Blood Respiratory SP02 Pain Height Weight Tyrese dy Source Pressure Rate Mass Index Aug 14, 97.4 F 85 140/74 96 % 0 181 lb 25 WHITE 2019 10:13 /min mm[Hg] [facility] Social History: Smoking Status (Most current) [...] 11:00 AM VA-TOBACCO FORMER USER [facility] Tobacco Use History This section includes a history of the smoking, or tobacco-related health factors, that were collected on or before the date of the Encounter. The data comes from the [place] facility where the Encounter took place. Date/Time Smoking Status/Tobacco Use Comment Facil ity Jul 17, 2020 11:00 AM VA-TOBACCO QUIT 15 YRS OR MORE [facility] Jul 19, 2019 10:33 AM VA-TOBACCO NEVER USED [facility] Jul 20, 2018 10:33 AM QUIT TOBACCO USE > 7 YEARS AGO [facility] Dec 23, 2016 10:27 AM LIFETIME NON-TOBACCO USER [facility] Nov 26, 2015 11:35 AM QUIT TOBACCO USE > 7 YEARS AGO [facility] May 19, 2005 08:38 AM LIFETIME NON-SMOKER [facility] Apr 23, 2004 11:39 AM LIFETIME NON-SMOKER [facility] May 15, 2003 10:08 AM LIFETIME NON-SMOKER [facility] Dec 31, 2001 04:36 PM LIFETIME NON-SMOKER [facility] Advance Directives: All historical and current Section Date Range: From patient's date of to the date document was created. This section includes ALL of a patient's completed or amended [place] Advance and Rescinded Directives. The entries below indicate that a directive exists for the patient, but an actual copy is not included with this document. The data comes from all [place] facilities. Date Advance Directives Provider Source Jun 05, 2017 ADVANCE DIRECTIVE LILLIAM DEGROOT [facility] Radiology Reports: +/- 30 days of the encounter Radiology Reports For cases when an order for radiology services may have been completed prior tothe date of the Encounter, the report list includes the Radiology Reports that were completed up to 30 days before date of the Encounter. For cases when an order for radiology services may have been completed after the date of the Encounter, the report list also includes the Radiology Reports that were completed up to 30 days after date of the Encounter. The data comes from all [place] treatment facilities. Date/Time Radiology Report Provider Source Jul 28, 2020 09:00 AM SCREENING MAMMO (BILATERAL) INCLUDES (CAD) IF PERFORMED: [facility] CLEMENTE,KRYSTALLEROY CHRISTINA [id number] [phone] F Exm Date: JUL 28, 2020@09:00 Req Phys: BARRINGTON ANDERSON Pat Loc: [facility] NURSE PHONE (Req'g Loc Img Loc : MAMMOGRAPHY (OOS) Service : Unknown (Case [id number] COMPLETE) SCREENI NG MAMMO (BILATERAL) INCLU(TROY Detailed) CPT:78216 Reason for Study: screening Clinical History: [facility] [phone] Report Status: Electronically Filed Da te Reported: JUL 28, 2020 Report: THIS EXAMINATION WAS PERFORMED AND INTERPR ETED BY ANOTHER INSTITUTION. The report has been scanned into the [facility] electronic medical record. To view the report, select the CPRS Tools Menu and choose the Image Display (Viewer) option. Impression: THIS EXAMINATION WAS PERFORMED AND INTERPR ETED BY ANOTHER INSTITUTION. The report has been scanned into the [facility] electronic medical record. To view the report, select the [employer] Tools Menu and choose the Image Display (Viewer) option. Primary Diagnostic Code: BI-RADS CATEGORY 1 (Negative) VERIFIED BY: / *ELECTRONICALLY FILED* Encounter Notes: All associated encounter notes This section contains the clinical notes associated to the Encounter. Date/Time Encounter Note(s) Provider Source Sep 17, 2020 04:46 PM LETTERS: BARRINGTON ANDERSON [facility] LOCAL TITLE: Letter To Patient [facility] STANDARD TITLE: LETTERS DATE OF NOTE: SEP 17, 2020@16:46 ENTRY DATE: SEP 17, 2020@16:46:24 AUTHOR: BARRINGTON ANDERSON EXP COSIGNER: URGENCY: STATUS: COMPLETED [employer] [address] [place] [address] SEP 17, 2020 MS. KRYSTAL CLEMENTE [address] [place] [address] Dear Ms. Krystal Clemente: I am writing to let you know the results of your most recent lab tests. CHOLESTEROL >> NORMAL CHOL: 122 (08/14/20 10:45) HDL: 39 (08/14/20 10:45) LDL: 63 (08/14/20 10:45) TRI (08/14/20 10:45) LIVER >> NORMAL Collection DT Specimen Test Name Result Units Ref Range 08/14/2020 10:45 PLASMA ALBUMIN 3.8 g/dL 3.2 - 5.0 08/14/2020 10:45 PLASMA BILIRUBIN, TOTAL 0.7 mg/dL 0.2 - 1.2 08/14/2020 10:45 PLASMA ALKALINE PH OSPHAT 67 U/L 40 - 150 08/14/2020 10:45 PLASMA ALT(SGPT) 32 U/L 7 - 52 08/14/2020 10:45 PLASMA AST(SGOT) 21 U/L 5 - 34 DIABETES >> NORMAL HGB A1C: 8.1 (08/14/20 10:45) KIDNEY TESTS >> NORMAL GLU,BUN,CREAT,LYTES GLUCOSE BUN CREAT S ODIUM K CHLOR CO2 08/14/20 10:45 153 H 12 0.92 1 41 3.9 105 27 GLU,BUN,CREAT,LYTES ANION eGFR 08/14/20 10:45 9 60 THYROID >> NORMAL TSH: 1.67 (08/14/20 10:45) VITAMIN B 12 >> NORMAL - but on the border of being too low. I would recommend that you be on a supplement for this. I can send it from here or you can get a 500mcg supplement over the counter. B12 08/14/20 10:45 209 Vitamin D level is also on the lower end of norm al. I would recommend a supplement of 1000units daily. I could also sen d that to you - just let me know. COMPLETE BLOOD COUNTS >> NORMAL AbsI.0 (08/14/20 10:45) BASO %: 0.8 (08/14/20 10:45) BASO#: 0.1 (08/14/20 10:45) EOS %: 0.8 (08/14/20 10:45) EOS#: 0.1 (08/14/20 10:45) HCT: 44.5 (08/14/20 10:45) HGB: 14.2 (08/14/20 10:45) IG%: 0.3 (08/14/20 10:45) LYMPH %: 25.6 (08/14/20 10:45) Lymph#: 2.0 (08/14/20 10:45) MCH: 29.5 (10/09/20 10:45) MCHC: 31.9 (08/14/20 10:45) MCV: 92.5 (08/14/20 10:45) MONO %: 7.6 (08/14/20 10:45) MONO#: 0.6 (08/14/20 10:45) MPV: 10.0 (08/14/20 10:45) N.RBC: 0.0 (08/14/20 10:45) NEUT %: 64.9 (08/14/20 10:45) NEUT#: 5.0 (08/14/20 10:45) NRBC#: 0.00 (08/14/20 10:45) PLT: 302 (08/14/20 10:45) RBC: 4.81 (08/14/20 10:45) RDW: 12.9 (08/14/20 10:45) WBC: 7.7 (08/14/20 10:45) If you have questions, please call the telephone advice line and ask to speak to the nurse. The toll free number is , press option 4 (for Primary Care), then press option 4 (telephone ad vice). You can call scheduling at extension [phone] when y ou are ready for your next appointment. Sincerely, Barrington Anderson MSN, PANELBOARD OPERATOR Nurse Practitioner Faculty Aug 14, 2020 09:51 AM PRIMARY CARE NOTE: BARRINGTON ANDERSON [facility] LOCAL TITLE: Primary Care Clinic Note [facility] STANDARD TITLE: PRIMARY CARE NOTE DATE OF NOTE: AUG 14, 2020@09:51 ENTRY DATE: AUG 14, 2020@09:51:16 AUTHOR: BARRINGTON ANDERSON EXP COSIGNER: URGENCY: STATUS: COMPLETED PMH: Acquired deflected nasal septum Multiple benign melanocytic nevi Dysplastic nevus of skin Seborrheic Keratosis Exostosis of unspecified site Hematuria Nevus, non-neoplastic 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 MAY TAKE 2 TABS AT BEDTIME FOR SEVERE PAIN. 3) GLIPIZIDE 10MG TAB TAKE ONE TABLET BY MOUTH TWICE A ACTIVE DAY FOR DIABETES Pending Outpatient Medications Status 1) CODEINE 30/ACETAMINOPHEN 300MG TAB TAKE 1 T ABLET BY PENDING MOUTH EVERY FOUR HOURS NEEDED FOR PAIN . MAY TAKE 2 TABS AT BEDTIME FOR SEVERE PAIN. 2) FAMOTIDINE 20MG TAB TAKE ONE TABLET BY MOUT H AT PENDING BEDTIME FOR STOMACH ACID 3) GLIPIZIDE 10MG TAB TAKE ONE TABLET BY MOUTH TWICE A PENDING DAY FOR DIABETES 4) METFORMIN HCL 500MG 24HR SA TAB TAKE FOUR T ABLETS BY PENDING MOUTH EVERY DAY FOR DIABETES Active Non-VA Medications Status 1) Non-VA ASPIRIN 325MG EC TAB 325MG MOUTH FREDY RY DAY ACTIVE 8 Total Medications ALLERGIES: FOOD DYES, FOOD PRESERVATIVES Glomerular Filtration Rate: eGFR - NONE FOUND SUBJ: 70 year old transgender M -> F here for p reventative check. She previously had vaginal discharge and pain - that is now completely resolved. Her is in the ICU after having surgery to r epair an AAA. She is doing well. Pt is worried about the syncopal episode that she had about 1 year ago. She is meeting with Cardiology today. No furthe r episodes. She has been more tired than normal. She has a very physical job and is exhausted when she gets home. No other symptoms . DM fasting BS 120-125, glipizide and metformin. Social: to 2nd for 11 years. 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 : [employer] 07/09/1970-06[birth year]27/1979 Stationed at [facility], [facility], [facility]. Denies PTSD, MST. Was also in t [employer] from [id number]. Also worked for the [employer] service during that t rizwan. Family history: [...] a car and is recovering Health Maintenance: Sigmoid/[place]: 05/2017, normal Immunizations:Up to date [], Pneumovax [], tetan us [], flu vaccine [today] Smoking [] yes [x] NO never smoker Alcohol [x] yes [] no [] drinks/week occ dri nk Depression screen: [ x]neg []pos Eye exam: [x ] yes [ ] no Dental exam [ ] yes [x ] no Seatbelts [x ] yes [ ] no ROS: Gen: sleeps well, good energy, appetite goo d HEENT: denies headache s, sinus pain or pressure, visual disturbances, NC, PND, ear pain Resp: denies SOB, dyspnea, cough, hemoptys is CV: denies chest pain or pressure, heart pa lpitations, lightheadedness GI: denies diarrhea, constipation, blood in stool, heartburn : no urinary frequency, urgency MS: no joint aches or pains, no redness or swelling of joints Extrem: no edema, pain Neuro: no numbness or tingling OBJ: BP:154/81 (07/19/2019 10:10) HR:84 (07/19/2019 10:10) WT:185 lb [84.1 kg] (07/19/2019 10:10) HT: 72 in [182.9 cm] (07/19/2019 10:13) BODY MASS INDEX - JUL 19, 2019@10:10:42 25 .1 General- Well-appearing, no apparent distress. HEENT- PERRL, Mucus memb. moist. Oropharynx john ar. No scleral icterus.TM's visualized bilaterally, grace y chamorro Neck- supple, No lymphadenopathy(cervical, supra clavicular, axillary). No thyromegaly. No bruits. -JVD Cardiovascular:RRR, S1,S2, no m/g/r, PMI non-dis placed Respiratory: non-labored breathing, clear A & P Abdomen: abdomen soft, nontender, no bruits, Janelle er/spleen non palpable Skin:Warm and dry. No petechiae, purpura, ecchym oses, rash. Extremities/feet: (-) edema, (-) cyanosis, (-)cl ubbing, (+)Pulses Musculoskeletal: normal gait Psych: Normal affect and demeanor. normal speec h pattern Neurological:Alert, oriented X3 CN 2-12 intact Motor - 5/5 Sensory intact to touch Cerebellar - Normal CECILE DTR normal and symmetric Urologic: deferred ASSES/PLAN - #Meds: reviewed, reconciled and pt has an update d list #1 Syncopal episode No further episodes. F/u with Cardiology today. #2 Fatigue BMP, CBC, TSH, Vit D and B12 today. #3 DM On metformin and glipizide. A1c today #4 HL On atorvastatin #5 HCM Flu shot today. [place] due 2026. 60 minutes spent on medical discussion RTC - 12 months 60 min W[facility] [x] open access Side effects from Meds: [] Yes [x]NO [x] Counseling of patient/family dominates over 50% of encounter Counseling: [] Healthy living pamphlet [x] Diet [] Alcohol [x] Exercise [] Smoking cessation [] Seat belts [] Smoke detectors DM/PVD/ESRD Foot Exam: Patient had a complete visual exam ination of the feet at this encounter. Result of Exam: Normal Patient's feet were ex amined for presence of dorsalis pedis and posterior tibial pulses. Results of Exam: Normal Patient had a monofilament examination of sensation in feet at this encounter. Results of Exam: Normal The patient's foot risk was calculated, an d the patient was educated on proper footwear and foot care. Please calculate the patient's Foot Risk S core (FRS) - 1 Required: (RATE the foot with the HIGHEST risk!) 0 = NORMAL RISK DM Nephropathy Screening: The following patient is a Diabeti c and has been screened or treated for Nephropathy as follows: Homelessness/Food Insecurity Screen: In the past 2 [...] No - Not worried about housing near [facility] In the past three months did you ever run out of food and you were not able to access more food or have the money to buy more food? No - No Food shortage Medication Reconciliation: Outpatient: Has the patient been taking medications as documented in the EMLR? YES: The patient has been taking medicatio ns as documented in the EMLR. Essential Medication List for Review used to complete this medication reconciliation. INCLUDED IN THIS LIST: Alphabetical list o f active outpatient prescriptions dispensed from this [facility] (loca l) and dispensed from another [place] or DoD facility (remote) as well as inp atient orders (local, pending and active), local clinic medications, loc ally documented non-VA medications, and local prescriptions that have or been discontinued in the past 90 days. - All changes in medic ations, including all non-VA/Herbal/OTC medications were entered into CPRS. - If there were any medications the patien t should no longer take, they were discontinued. - The patient/caregiver was instructed to update this list, discard old lists, and take this list to the next appo intment, whether with a VA or non-VA provider. /es/ Barrington Anderson MSN, PANELBOARD OPERATOR Nurse Practitioner Faculty Signed: 08/14/2020 17:53
--- OUTSIDE RECORDS SUMMARY | 2021-07-26 06:27 | XMS_ITS | Encounter Summary ---
:1950 Author Organization Department [facility] Address [address] [place] [id number] Care Team Providers Name Role Phone BARRINGTON [...] MEDICARE MEDICARE PART May 06, PART A [id number] CLEMENTE ,TYRESE PATIENT (WNR) (M) A 2013 DE63 2 BBI MEDICARE MEDICARE PART May 06, PART B [id number] CHYNA TYRESE PATIENT (WNR) (M) B 2013 DE63 2 BBI [facility] USFA Nov 06, WNR [id number] [phone] TYRESE CLEMENTE PATIENT HEALTH [facility](W 2017 [id number] BBI PLAN NR) [facility] Nov 06, [id number] [phone] TYRESE RIOJAS PATIENT HEALTH [facility] 2017 [id number] BBI PLAN [place] Selected Encounter This section includes the information on record at [place] for the Encounter. Date/Time Encounter Type Encounter Reason Provider Source Description Aug 14, 2020 OFFICE/OUTPATIEN CARDIOLOGY ICD-10-CM R42 YOU FITZGERALD 11:30 AM T VISIT EST Dizziness and M giddiness with Provider Comments: Dizziness and Giddiness IHE Encounter Template Text not used by [facility] Assessments - Encounter Diagnoses This section includes the primary and secondary diagnoses documented forthe Encounter. Date/Time Primary/Secondary Diagnosis Name Provider Source Diagnosis Aug 14, 2020 PRIMARY Dizziness and YOU FITZGERALD 03:51 PM giddiness [facility] Aug 14, 2020 SECONDARY Chronic fatigue, YOU FITZGERALD ER 03:51 PM unspecified [facility] Aug 14, 2020 SECONDARY Hyperlipidemia, YOU FITZGERALDE R 03:51 PM unspecified [facility] Plan of Treatment: Future Appointments (+ 6 [...] 20 appointments. The [facility] comes [facility] [facility] Appointment Date/Time Appointment Type Appointment Facili ty Name Sep 22, 2020 09:00 AM AMBULATORY - SUR[place] [facility] Sep 22, 2020 10:30 [facility] Oct 21, 2020 03:00 PM AMBULATORY - MEDICINE [facility] Lab Results: +/- 30 days of [...] Interpretation Reference Range Comment Aug 14, 2020 [facility] DRUG SCREEN+ETG(ALBERT) Specimen Type: URINE 10:46 AM [facility] Comment: The ETG test was developed and its performance characteristics determined by [facility]WR[facility]imee. It has not been cleared or approved [...] Jul 17, 2020 12:42 PM Reporting Lab: [facility] [address] [phone] Performing Lab: [facility] [address] [address] COCAINE SCREEN NONE DETECTED NONE-DETECT ED, CUTOFF= 300 ng/mL BENZODIAZEPINES SCREEN NONE DETECTED NON E-DETECTED, CUTOFF= 200 ng/mL OPIATES SCREEN SCRN POS NONE-DETECTED, CUTOFF= 300 ng/mL CREATININE (URINE,RANDOM) 214.9 mg/dL CANNABINOID SCRN NONE DETECTED NONE-DETE CTED, CUTOFF= 50 ng/mL AMPHETAMINE SCRN NONE DETECTED NONE-DETE CTED, CUTOFF= 1000 ng/mL OXYCODONE SCREEN URINE(wrj) NONE DETECTED NONE-DETECTED, VXIUYH=687jn/mL ETOH URINE <10.0 mg/dL NEGATIVE-10.0 BUPRENORPHINE SCREEN URINE(wrj) NONE DETECTED NONE-DETECTED, CUT METHADONE SCREEN(wrj) NONE DETECTED NONE -DETECTED, PPKGNC=835tj/mL pH BRIAN 5.1 4.0-10.0 ETHYL GLUCURONIDE(j) NONE DETECTED NON E DETECTED, ZWNRQS=396yv/mL SPECIFIC GRAVITY BRIAN 1.025 g/mL H 1.003-1. 020 FENTANYL(J)URINE SCREEN NONE DETECTED NONE DETECTED, CUTOFF=1.0ng/mL Aug 14, 2020 [facility] LIPOPROTEIN Specimen Type: PLASMA 10:45 AM [facility] CHOLESTEROL FRACT. No comment en tered. PANEL Ordering Provider: BARRINGTON ANDERSON Report Released Date/Time: Aug 14, 2020 09:50 AM Reporting Lab: [facility] [address] [address] Performing Lab: [facility] [address] [address] CHOLESTEROL 122 mg/dL 0-199 TRIGLYCERIDE 100 mg/dL 0-149 HDL CHOLESTEROL 39 mg/dL L >40 LDL CHOLESTEROL (CALC) 63 mg/dl 0-129 Aug 14, 2020 [facility] GLYCOHEMOGLOBIN (A1C Specimen Type: BLOOD 10:45 AM [facility] ONLY) No comment enter ed. Ordering Provider: BARRINGTON ANDERSON Report Released Date/Time: Aug 14, 2020 09:50 AM Reporting Lab: [place] [facility] [address] [address] Performing Lab: [place] [facility] [address] [address] HEMOGLOBIN A1C 8.1 % H 4.0-5.6 Aug 14, 2020 10:45 [place] VITAMIN B-12 Specimen Type: SERUM AM [facility] Comment: TSH within normal limits. Reflex testing not required. Ordering Provider: BARRINGTON ANDERSON Report Released Date/Time: Aug 14, 2020 09:50 AM Reporting Lab: [place] [facility] [address] [address] Performing Lab: [place] [facility] [address] [address] VITAMIN B-12 209 pg/mL 200-900 Aug 14, 2020 10:45 [place] VIT D 25-OH(WRJ) Specimen Type: SERUM [facility] Comment: TSH within normal limits. Reflex testing not required. Ordering Provider: BARRINGTON ANDERSON Report Released Date/Time: Aug 14, 2020 09:50 AM Reporting Lab: [place] [facility] [address] [address] Performing Lab: [place] [facility] [address] [address] VIT D 25-OH(WRJ) 22.5 ng/mL 20-50 Aug 14, 2020 10:45 [place] THYROID TESTING Specimen Type: SERUM AM [facility] [place] Comment: TSH within normal limits. Reflex testing not required. Ordering Provider: BARRINGTON ANDERSON Report Released Date/Time: Aug 14, 2020 09:50 AM Reporting Lab: [place] [facility] [address] [address] Performing Lab: [place] [facility] [address] [address] TSH 1.67 uIU/mL 0.35-5.00 REFLEX TESTING comment Aug 14, 2020 10:45 [place] CBC PROFILE Specimen Type: BLOOD [facility] No comment enter ed. Ordering Provider: JUSTIN,BARRINGTON K Report Released Date/Time: Aug 14, 2020 09:50 AM Reporting Lab: [facility] [address] [address] Performing Lab: [facility] [address] [address] WBC 7.7 10*3/uL 4.5-11.0 RBC 4.81 10*6/uL [...] NRBC 0.00 10*3/uL 0-0 Aug 14, 2020 [facility] P4 GLU,BUN,CREAT,LYTES,CA Specimen Type: PLASMA 10:45 AM [facility] No comment enter ed. Ordering Provider: BARRINGTON ANDERSON Report Released Date/Time: Aug 14, 2020 09:50 AM Reporting Lab: [facility] [address] [address] Performing Lab: [facility] [address] [address] UREA NITROGEN 12 mg/dL 7-25 SODIUM 141 mmol/L 135-145 POTASSIUM 3.9 mmol/L 3.5-5.0 CHLORIDE 105 mmol/L 100-110 CARBON DIOXIDE 27 mmol/L 20-30 ANION GAP 9 mmol/L 4-16 GLUCOSE 153 mg/dL H 65-100 CREATININE 0.92 mg/dl 0.5-1.5 CALCIUM 9.5 mg/dL 8.5-10.5 eGFR 60 mL/min >60 Aug 14, 2020 10:45 [facility] LIVER PROFILE Specimen Type: PLASMA [facility] No comment enter ed. Ordering Provider: BARRINGTON ANDERSON Report Released Date/Time: Aug 14, 2020 09:50 AM Reporting Lab: [facility] [address] [address] Performing Lab: [facility] [address] [address] PROTEIN, TOTAL 6.8 g/dL 6.0-8.5 ALBUMIN 3.8 [...] lb 25 WHITE 2019 10:13 /min mm[Hg] [facility] Social History: Smoking Status (Most current) [...] 11:00 AM VA-TOBACCO FORMER USER [facility] Tobacco Use History This section includes a history of the smoking, or tobacco-related health factors, that were collected on or before the date of the Encounter. The data comes from the [place] facility where the Encounter took place. Date/Time Smoking Status/Tobacco Use Comment Trista swenson Jul 17, 2020 11:00 AM VA-TOBACCO QUIT 15 YRS OR MORE [facility] Jul 19, 2019 10:33 AM VA-TOBACCO NEVER USED [facility] Jul 20, 2018 10:33 AM QUIT TOBACCO USE > 7 YEARS AGO [facility] Dec 23, 2016 10:27 AM LIFETIME NON-TOBACCO USER [facility] Nov 26, 2015 11:35 AM QUIT TOBACCO USE > 7 YEARS AGO [facility] May 19, 2005 08:38 AM LIFETIME NON-SMOKER [facility] Apr 23, 2004 11:39 AM LIFETIME NON-SMOKER [facility] May 15, 2003 10:08 AM LIFETIME NON-SMOKER [facility] Dec 31, 2001 04:36 PM LIFETIME NON-SMOKER [facility] Advance Directives: All historical and [...] 2017 ADVANCE DIRECTIVE LILLIAM DEGROOT [facility] Radiology Reports: +/- 30 days of the [...] the Encounter. The data comes from all [place] treatment facilities. Date/Time Radiology Report Provider Source Jul 28, 2020 09:00 AM SCREENING MAMMO (BILATERAL) INCLUDES (CAD) IF PERFORMED: [facility] KRYSTAL CLEMENTE CARRI [id number] -[birth year] F Exm Date: JUL 28, 2020@09:00 Req Phys: BARRINGTON ANDERSON Pat Loc: [facility] NURSE PHONE (Req'g Loc Img Loc : MAMMOGRAPHY (OOS) Service : Unknown (Case [id number] COMPLETE) SCREENI NG MAMMO (BILATERAL) INCLU(TROY Detailed) CPT:61191 Reason for Study: screening Clinical History: [facility] [phone] Report Status: Electronically Filed Da te Reported: JUL 28, 2020 Report: THIS EXAMINATION WAS PERFORMED AND INTERPR ETED BY ANOTHER INSTITUTION. The report has been scanned into the [facility] electronic medical record. To view the report, select the [employer] Menu and choose the Image Display (Viewer) option. Impression: THIS EXAMINATION WAS PERFORMED AND INTERPR ETED BY ANOTHER INSTITUTION. The report has been scanned into the [facility] electronic medical record. To view the report, select the [employer] Menu and choose the Image Display (Viewer) option. Primary Diagnostic Code: BI-RADS CATEGORY 1 (Negative) VERIFIED BY: / *ELECTRONICALLY FILED* Encounter Notes: All associated encounter notes This section contains the clinical notes associated to the Encounter. Date/Time Encounter Note(s) Provider Source Aug 14, 2020 10:14 AM CARDIOLOGY NURSE PRACTITIONER NOTE: YOU DUMONT [facility] TITLE: Cardiology DEVULCANIZER HEAD Note (*T) [facility] STANDARD TITLE: CARDIOLOGY NURSE PRACTITIONER NO TE DATE OF NOTE: AUG 14, 2020@10:14 ENTRY DATE: AUG 14, 2020@10:15 AUTHOR: YOU FITZGERALD EXP COSIGNER: URGENCY: STATUS: COMPLETED Ms. Clemente is a 70 y.o. who is seen in follow up of dizziness, work up included holter and stress echo at [facility]. Records obtaine d prior to visit today. Including holter monitor report which showed bas mary rhythm NSR with rare atrial and ventricular ecotpy, no significant ta cj or bradyarrhythmias or pauses, diary entries correlated with NSR. Stres s echo showed good exercise tolerance, normal HR and BP response to exercise . No EKG or echocardiographic evidence of ischemia. Normal baseline echo, LV augments with stress, no wma. No arrhythmias or ST changes during stress. Rare PV Cs noted. Interval History: Today when I see Krystal, she described her episod e last Novemeber again. She states she picked up a beam with her son and turned and she states she felt like her equilibrium was off, like she was oscillatin g - like a top - and if she didn't hold the truck she would go down. She denies presyncope or syncope. 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 It lasts a couple of minutes and then resolves. She denies any exeritional c hest pain or pressure but she does not with pushing herself she feels like her breath is short. She also notices she tires much easier, and when she gets home from a lo day she can fall asleep in front of the TV. She does not feel well rested in the morning, an d she states she nearly fell asleep in the waiting room waiting for m e. She was so tired this AM she wasn't sure if she should drive down. Past Medical History: #Dizzy Episode -Stress echo: above avg exercise tolerance, no EKG or echo evidence of ischemia. Normal baseline echo -24 hour ambulatory monitor ([facility]) -Min HR 59 bpm (1:38) -Avg HR 84 bpm -Max HR 133 -Baseline NSR, no afib -Very rare P VCs, very rare PACs. 23 beat run of irregular narrow complex tachycardia, cou ld be brief burst of pAF -Longest R-R pause: 1.5 seconds -Diary entries corresponding wit h NSR #Gender Dysphoria, Transgender -Male-->Female #DMII #Depressive d/o #Multiple benign melanocytic nevi #Hematuria #Seborrheic keratosis Allergies: FOOD PRESERVATIVES FOOD DYES FOOD ADD ( FREE TEXT ) GM- multiple strokes Mother - stents and strokes Younger brother - CAD, [place] Dads moms side of the family - all siblnts of strokes and heart attacks Medications: ASA 325 mg daily Atorvastatin 40 mg daily Metformin 2000 mg daily Glipizide 10 mg BID Famotidine 20 mg QHS Codeine 30/APAP 300 mg 1 tab Q4 hrs PRN Objective Vitals: BP: Sittin/72 Standin/82 H R: 60 Wt: Gen'l: 70 yo female who ambulates into the exam room without difficulty Neck: No bruit Lungs: CTA bilat normal effort Cardiac: RRR S1 S2, no m/r/g Abd: Flat Ext: No LE edema Lab Values NA: 140 (07/19/19 09:58) K: 4.4 (07/19/19 09:58) CL: 106 (07/19/19 09:58) CO2: 26 (07/19/19 09:58) BUN: 14 (07/19/19 09:58) CREATI: 1.03 (07/19/19 09:58) EGFR: 53 (07/19/19 09:58) GLU: 289 (07/19/19 09:58) HGB A1C: 7.6 (07/19/19 09:58) HCT: 41.3 (07/16/15 11:49) HGB: 13.9 (07/16/15 11:49) CHOL: 200 (07/19/19 09:58) HDL: 35 (07/19/19 09:58) LDL: 143 (07/19/19 09:58) TRI (07/19/19 09:58) AST: 16 (07/19/19 09:58) ALT: 21 (07/19/19 09:58) TSH: 1.98 (03/31/16 09:57) INR: 1.0 (02/21/11 11:34) Assessment: 70 yo male with no history o f CAD or arrhythmia, CRF of DM, HTN, HLD and +family history of coronary disease with reported episod e of dizziness. On further review her description of feeling like she is os cillating, dizzy, sounds more consistent with vertigo. She has no pres yncope or syncope. Her episodes on her holter were associated with NSR and she had no s ignificant tachy or bradyarrhythmias or pauses. She has no sx sugges tive of obstructive coronary disease and her stress echo was very reassuring with normal exercise tolerance, no EKG or echo evidence of ischemia. Her symptom s of nonrestorative sleep, daytime fatigue and SOB may be related to sleep apnea and we discussed the possibility of a sleep study which she is agreea ble to. Her cholesterol was under wonderful cont rol today. Her a1c is elevated at 8.1% and she states this is likely as she has gotten abck into drinking Pepsi - she would like to cut out the so da again and recheck her A1c this winter locally and asked if I could pass this on to her PCP. #HTN -Very well controlled today #HLD -looks great, continue atorvastatin #Dizziness -?BPPV, follow up with PCP -No evidence of arrhythmia or orthostasi s #Fatigue -concern for sleep a brody given daytime sleepiness, non-restorative sleep. will confer with PCP and if in a greement pursue sleep study No follow up scheduled. Focu s on CRF, follow up with PCP re: dizziness, ? BPPV, and fatigue, ? ANG Greater than 50% of this session was dedicated t o counseling and coordination of care. Time spent with patient: 3 5 minutes. /marlo/ YOU FITZGERALD Cardiology Nurse Practitioner Signed: 08/14/2020 15:51 Receipt Acknowledged By: * AWAITING SIGNATURE * BARRINGTON ANDERSON
--- OUTSIDE RECORDS SUMMARY | 2021-07-26 06:27 | XMS_ITS | Encounter Summary ---
:[address] [facility] Address [address] [place] [id number] Care Team Providers Name Role Phone BARRINGTON [...] MEDICARE MEDICARE PART May 06, PART A [id number] TYRESE CLEMENTE PATIENT (WNR) (M) A 2013 DE63 2 [facility]BI MEDICARE MEDICARE PART May 06, PART B [id number] TYRESE CLEMENTE PATIENT (WNR) (M) B 2013 DE63 2 BBI [facility] USFA Nov 06, WNR [id number] [phone] TYRESE CLEMENTE PATIENT [facility](W 2017 [id number] BBI PLAN NR) [facility] Nov 06, [id number] [phone] TYRESE RIOJAS PATIENT [facility] 2017 [id number] [facility] PLAN [place] Selected Encounter This section includes the information on record at [place] for the Encounter. Date/Time Encounter Type Encounter Reason Provider Source Description Jul 31, 2020 Outpatient TELEPHONE/MEDICIN ICD-10-CM R42 DACIA FITZGERALD 09:00 AM Encounter E Dizziness and M giddiness with Provider Comments: Dizziness and Giddiness IHE Encounter Template Text not used by [facility] Assessments - Encounter Diagnoses This section includes the primary and secondary diagnoses documented forthe Encounter. Date/Time Primary/Secondary Diagnosis Name Provider Source Diagnosis Jul 31, 2020 PRIMARY Dizziness and YOU FITZGERALD 09:00 AM giddiness M [facility] Jul 31, 2020 SECONDARY Essential (primary) YOU FITZGERALD 09:00 AM hypertension [facility] Jul 31, 2020 SECONDARY Hyperlipidemia, YOU FITZGERALD R 09:00 AM unspecified [facility] Jul 31, 2020 SECONDARY Type 2 diabetes YOU FITZGERALD R 09:00 AM mellitus with M [facility] unspecified complications Plan of Treatment: Future Appointments (+ [...] 20 appointments. The [facility] [place] [facility] Appointment Date/Time Appointment Type Appointment Facili ty Name Aug 14, 2020 09:00 AM AMBULATORY - NONE [facility] Aug 14, 2020 11:30 AM AMBULATORY - MEDICINE [facility] Sep 22, 2020 09:00 AM [facility] Sep 22, 2020 10:30 AM [facility] Oct 21, 2020 03:00 PM AMBULATORY - MEDICINE [facility] Lab Results: +/- 30 days of the [...] Interpretation Reference Range Comment Aug 14, 2020 [facility] DRUG SCREEN+ETG([facility]J) Specimen Type: URINE 10:46 AM [facility] Comment: The ETG test was developed and its performance characteristics determined by [facility]. It has not been cleared or approved [...] Jul 17, 2020 12:42 PM Reporting Lab: [facility] [address] [facility] [address] Performing Lab: [address] [address] COCAINE SCREEN NONE DETECTED NONE-DETECT ED, CUTOFF= 300 ng/mL BENZODIAZEPINES SCREEN NONE DETECTED NON E-DETECTED, CUTOFF= 200 ng/mL OPIATES SCREEN SCRN POS NONE-DETECTED, CUTOFF= 300 ng/mL CREATININE (URINE,RANDOM) 214.9 mg/dL CANNABINOID SCRN NONE DETECTED NONE-DETE CTED, CUTOFF= 50 ng/mL AMPHETAMINE SCRN NONE DETECTED NONE-DETE CTED, CUTOFF= 1000 ng/mL OXYCODONE SCREEN URINE([facility]) NONE DETECTED NONE-DETECTED, LMDYGL=315dt/mL ETOH URINE <10.0 mg/dL NEGATIVE-10.0 BUPRENORPHINE SCREEN URINE([facility]) NONE DETECTED NONE-DETECTED, CUT METHADONE SCREEN([facility]) NONE DETECTED NONE -DETECTED, UAWAHF=415lm/mL pH BRIAN 5.1 4.0-10.0 ETHYL GLUCURONIDE([facility]) NONE DETECTED NON E DETECTED, HPGOTR=346vt/mL SPECIFIC GRAVITY BRIAN 1.025 g/mL H 1.003-1. 020 FENTANYL([facility])URINE SCREEN NONE DETECTED NONE DETECTED, CUTOFF=1.0ng/mL Aug 14, 2020 [facility] LIPOPROTEIN Specimen Type: PLASMA 10:45 AM [facility] CHOLESTEROL FRACT. No comment en tered. PANEL Ordering Provider: BARRINGTON ANDERSON Report Released Date/Time: Aug 14, 2020 09:50 AM Reporting Lab: [facility] [address] [facility] [address] Performing Lab: [address] [address] CHOLESTEROL 122 mg/dL 0-199 TRIGLYCERIDE 100 mg/dL 0-149 HDL CHOLESTEROL 39 mg/dL L >40 LDL CHOLESTEROL (CALC) 63 mg/dl 0-129 Aug 14, 2020 [facility] GLYCOHEMOGLOBIN (A1C Specimen Type: BLOOD 10:45 AM [facility] ONLY) No comment enter ed. Ordering Provider: BARRINGTON ANDERSON Report Released Date/Time: Aug 14, 2020 09:50 AM Reporting Lab: [facility] [address] [facility] [address] Performing Lab: [facility] [address] [facility] [address] HEMOGLOBIN A1C 8.1 % H 4.0-5.6 Aug 14, 2020 10:45 [facility] VITAMIN B-12 Specimen Type: SERUM AM [facility] Comment: TSH within normal limits. Reflex testing not required. Ordering Provider: BARRINGTON ANDERSON Report Released Date/Time: Aug 14, 2020 09:50 AM Reporting Lab: [facility] [address] [facility] [facility] [address] Performing Lab: [facility] [address] [facility] [address] VITAMIN B-12 209 pg/mL 200-900 Aug 14, 2020 10:[address] [facility] VIT D 25-OH(WRJ) Specimen Type: SERUM AM [facility] Comment: TSH within normal limits. Reflex testing not required. Ordering Provider: BARRINGTON ANDERSON Report Released Date/Time: Aug 14, 2020 09:50 AM Reporting Lab: [facility] [address] [facility] [facility] [address] Performing Lab: [facility] [address] [facility] [address] VIT D 25-OH(WRJ) 22.5 ng/mL 20-50 Aug 14, 2020 10:[address] [facility] THYROID TESTING Specimen Type: SERUM AM [facility] Comment: TSH within normal limits. Reflex testing not required. Ordering Provider: BARRINGTON ANDERSON Report Released Date/Time: Aug 14, 2020 09:50 AM Reporting Lab: [facility] [address] [facility] [address] Performing Lab: [facility] [address] [facility] [address] TSH 1.67 uIU/mL 0.35-5.00 REFLEX TESTING comment Aug 14, 2020 10:45 [facility] CBC PROFILE Specimen Type: BLOOD AM [facility] No comment enter ed. Ordering Provider: BARRINGTON ANDERSON Report Released Date/Time: Aug 14, 2020 09:50 AM Reporting Lab: [facility] [address] [facility] [address] Performing Lab: [facility] [address] [facility] [address] WBC 7.7 10*3/uL 4.5-11.0 RBC 4.81 10*6/uL [...] NRBC 0.00 10*3/uL 0-0 Aug 14, 2020 [facility] P4 GLU,BUN,CREAT,LYTES,CA Specimen Type: PLASMA 10:45 AM [facility] No comment enter ed. Ordering Provider: BARRINGTON ANDERSON Report Released Date/Time: Aug 14, 2020 09:50 AM Reporting [facility] [address] [facility] [facility] [address] [facility] [address] [facility] [facility] [address] UREA NITROGEN 12 mg/dL 7-25 SODIUM 141 mmol/L 135-145 POTASSIUM 3.9 mmol/L 3.5-5.0 CHLORIDE 105 mmol/L 100-110 CARBON DIOXIDE 27 mmol/L 20-30 ANION GAP 9 mmol/L 4-16 GLUCOSE 153 mg/dL H 65-100 CREATININE 0.92 mg/dl 0.5-1.5 CALCIUM 9.5 mg/dL 8.5-10.5 eGFR 60 mL/min >60 Aug 14, 2020 10:45 [facility] LIVER PROFILE Specimen Type: PLASMA AM [facility] No comment enter ed. Ordering Provider: BARRINGTON ANDERSON Report Released Date/Time: Aug 14, 2020 09:50 AM Reporting [facility] [address] [facility] [address] [facility] [address] [facility] [address] PROTEIN, TOTAL 6.8 g/dL 6.0-8.5 ALBUMIN 3.8 g/dL 3.2-5.0 BILIRUBIN, TOTAL 0.7 mg/dL 0.2-1.2 ALKALINE PHOSPHATASE 67 U/L 40-150 ALT(SGPT) 32 U/L 7-52 AST(SGOT) 21 U/L 5-34 FIB-4 SCORE 0.87 INDEX <2.67 Social History: Smoking Status (Most current) and [...] 2020 11:00 AM VA-TOBACCO FORMER USER [facility] Tobacco Use History This section includes a history of the smoking, or tobacco-related health factors, that were collected on or before the date of the Encounter. The data comes from the [place] facility where the Encounter took place. Date/Time Smoking Status/Tobacco Use Comment Trista swenson Jul 17, 2020 11:00 AM VA-TOBACCO QUIT 15 YRS OR MORE [facility] Jul 19, 2019 10:33 AM VA-TOBACCO NEVER USED [facility] Jul 20, 2018 10:33 AM QUIT TOBACCO USE > 7 YEARS AGO [facility] Dec 23, 2016 10:27 AM LIFETIME NON-TOBACCO USER [facility] Nov 26, 2015 11:35 AM QUIT TOBACCO USE > 7 YEARS AGO [facility] May 19, 2005 08:38 AM LIFETIME NON-SMOKER [facility] Apr 23, 2004 11:39 AM LIFETIME NON-SMOKER [facility] May 15, 2003 10:08 AM LIFETIME NON-SMOKER [facility] Dec 31, 2001 04:36 PM LIFETIME NON-SMOKER [facility] Advance Directives: All historical and current Section Date Range: From patient's date of to the date document was created. This section includes ALL of a patient's completed or amended [place] Advance and Rescinded Directives. The entries below indicate that a directive exists for the patient, but an actual copy is not included with this document. The data comes from all [place] facilities. Date Advance Directives Provider Source Jun 05, 2017 ADVANCE DIRECTIVE LILLIAM DEGROOT Ruth [facility] Radiology Reports: +/- 30 days of the [...] the Encounter. The data comes from all [place] treatment facilities. Date/Time Radiology Report Provider Source Jul 28, 2020 09:00 AM SCREENING MAMMO (BILATERAL) INCLUDES (CAD) IF PERFORMED: [facility] KRYSTAL CLEMENTE [id number] -[birth year] 8 F Exm Date: JUL 28, 2020@09:00 Req Phys: BARRINGTON ANDERSON Pat Loc: [facility] NURSE PHONE (Req'g Loc Img Loc : MAMMOGRAPHY (OOS) Service : Unknown (Case [id number] COMPLETE) SCREENI NG MAMMO (BILATERAL) INCLU(TROY Detailed) CPT:38708 Reason for Study: screening Clinical History: [facility] [phone] Report Status: Electronically Filed Da cheyanne Reported: JUL 28, 2020 Report: THIS EXAMINATION WAS PERFORMED AND INTERPR ETED BY ANOTHER INSTITUTION. The report has been scanned into the [facility] electronic medical record. To view the report, select the CPRS Tools Menu and choose the Image Display (Viewer) option. Impression: THIS EXAMINATION WAS PERFORMED AND INTERPR ETED BY ANOTHER INSTITUTION. The report has been scanned into the [facility] electronic medical record. To view the report, select the CPRS Tools Menu and choose the Image Display (Viewer) option. Primary Diagnostic Code: BI-RADS CATEGORY 1 (Negative) VERIFIED BY: / *ELECTRONICALLY FILED* Encounter Notes: All associated encounter notes This section contains the clinical notes associated to the Encounter. Date/Time Encounter Note(s) Provider Source Jul 31, 2020 08:33 AM CARDIOLOGY CONSULT: YOU FITZGERALD [facility] TITLE: CONSULT: SUPERINTENDENT PIPELINES Cardiology [facility] STANDARD TITLE: CARDIOLOGY CONSULT DATE OF NOTE: JUL 31, 2020@08:33 ENTRY DATE: JUL 31, 2020@08:33:46 AUTHOR: YOU FITZGERALD EXP COSIGNER: URGENCY: STATUS: COMPLETED CONSULT: SUPERINTENDENT PIPELINES Cardiology Has ADDENDA Cardiology Telephone Note Due to recent developments and directive s with the COVID-19 Virus the [facility] is taking measures to provide for the safety and security of patients. We have been pushpa ed approval to offer patients who are stable and do not require an acute visit the options of VCC or Telephone Visits to avoid exposure, possible contamination, and vi ral spread. The was contacted, is medically stable and has opted to complete to day's scheduled Cardiology Clinic appointment over the phone Reason for Consultation: Ms. Clemente is a 70 y.o. referred to Cardiology by her PCP for history of syncope. Pe r PCP note, with syncopal episoide in Sep 2019 for which she was evaluated at [facility] with EKG, holter and stress test and was advised to see cardiology, which she has not to date. In September 2019, per the record she had a syncopal episode and was brought to [facility] for evaluatio n. Pt had an EKG, echo, holter and stress test (no records sent here - sent to outside PCP Dr Jigna Alexis). Pt was advised to see a Certified Pediatric Nurse Practitioner but has not done that yet. Melody cope would like to keep his Cardiology care at [facility] since he lives so close to there and all of his testing was done there. He has had no furth er syncopal episodes but does occasionally feel dizzy with position changes. HPI: Krystal is a very pleasant 70 yo with a hi story of DM- last A1c 7.6%. She has no personal history of heart di sease or arrhythmia, but does have a family history significant for heart disease. She is a non-smok er. She does not have a diagnosis of HTN and is not on antihypertensives, but her BP appears to be above goal on review of CPRS. She is on atorvastatin 40 mg daily, and as of Jul 2019 LDL was 143. 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 She states that she went there, they put o n the pulse ox and it was 'dropping beats' and they to ld her to get up to [facility] immediately. [facility] did an EKG and advised she have a work up with [facility]. There, she had an EKG and stress echo and 24 hour holter monitor. She states that during the stress test, the nurs e kept asking her don't you feel that? Don't you feel th at and she didn't know what she was supposed to be feelinkg. She got her HR up to 163 and got off t he treadmill and had imaging. She notes there were other people there and they told her they were there to revive you if you had a heart attack. S he was told to see a computer programming supervisor very soon, but then there was a v dariel large wait for her primary care provider in the community and she was not referred, and the holi days came and she moved on. She is still working, and ve ry active, and she denies any exertional chest pain or pressure, no SOB, CASH. Guera cope does endorse feeling whipped out at the end of the day which is new the last 8-9 months; guera cope may fall asleep watching the evening news. Her is having surgery at [facility] for an ascen ding aortic aneurysm on 08/10; she wants to make sure that she gets her heart p silvana addressed, so they can both enjoy their jail. Her dads moms entire side of the family, her dads aunts and uncles all of heart attacks in their early 70s. She does not t hink that any of them were significant smokers. Her mother had cardiac sten ts and strokes, she did live until 92 yo. Her father of lung CA at 55 ye ars 51 weeks. She does have siblings, her younger brother had an AL and he h ad several stents. Past Medical History: #Dizzy Episode -24 hour ambulatory monitor ([facility]) -Min HR 59 bpm (1:38) -Avg HR [...] DYES FOOD ADD ( FREE TEXT ) Medications: ASA 325 mg daily Atorvastatin 40 mg daily Metformin 2000 mg daily Glipizide 10 mg BID Famotidine 20 mg QHS Codeine 30/APAP 300 mg 1 tab Q4 hrs PRN Objective Speaking in full sentences, no distress noted Lab Values NA: 140 (07/19/19 09:58) K: 4.4 (07/19/19 09:58) CL: 106 (07/19/19 09:58) CO2: 26 (07/19/19 09:58) BUN: 14 (07/19/19 09:58) CREATI: 1.03 (07/19/19 09:58) EGFR: 53 (07/19/19 09:58) GLU: 289 (07/19/19 09:58) HGB A1C: 7.6 (07/19/19 09:58) AST: 16 (07/19/19 09:58) ALT: 21 (07/19/19 09:58) CHOL: 200 (07/19/19 09:58) HDL: 35 (07/19/19 09:58) LDL: 143 (07/19/19 09:58) TRI (07/19/19 09:58) TSH: 1.98 (03/31/16 09:57) HCT: 41.3 (07/16/15 11:49) HGB: 13.9 (07/16/15 11:49) INR: 1.0 (02/21/11 11:34) Assessment: 70 yo male with no history o f CAD or arrhythmia, CRF of DM, HTN, HLD and family history with episode of dizz iness upon standing last Fall, no syncope, with work up including ambulatory monitoring and stress ec ho. Her episode sounds more consistent with possible lynette tigo or orthostasis than an arrhtyhmia, or ischemia. Her 24 hour monitor was unremarkable. Short run of irregular narrow complex tachy noted as possible PAF . May be worthwhile to repeat a monitor and do a 14 day to assess for PAF as this would be an indica tion for OAC. However, her report of the stress test, findings of which are not available, are more concerning for possible ischemia. She has no sym ptoms of obstructive coronary disease but has multiple CRF. She has an appoint ment on 08/14 with her PCP. We discussed I wnat to obtain her stress echo resul ts, and review, and discuss a plan with her. This may incl ude increasing atorvastatin (last LDL 143), starting antihypertensives, and possible referral for cat h depending on the results of her stress echo Plan #Stress Echo findings -? Suggestive of ischemia, or had VT? Ne ed to obtain records #HTN -Poorly controlled per CPRS review, will consider starting metoprolol following review of stress test and BP at our appointment on 08/14 #HLD -Poorly controlled, review LDL when obtained on 08/14, consider increase to atorvastatin 80 mg daily [facility] cook frozen dessert can you please obta in records from [facility] including stress echo, ambulatory monitoring and any other cardia c testing? Thank you! Follow up 08/14 when here for PCP to assess lipid s, HTN, and stress results I spent 40 minutes on the phone with this vetera n regarding POC Greater than 50% of this session was dedicated t o counseling and coordination of care. Time spent with patient: 6 0 minutes. /marlo/ YOU FITZGERALD Cardiology Nurse Practitioner Signed: 07/31/2020 10:02 08/05/2020 ADDENDUM STATUS: COMPLETED Asking primary care team to please assist with o btaining [facility] cardi[facility] records [facility] including stress [facility], a mbulatory monitoring and any other cardiac testing. Pleas e send to cardiology via interoffice mail attention to this provider please. Thank you /rachel FITZGERALD Cardiology Nurse Practitioner Signed: 08/05/2020 07:43 Receipt Acknowledged By: 08/10/2020 12:41 /marlo/ MONA TAMAYO Medical Support Ass istant 08/11/2020 17:19 /marlo/ Barrington ceron MSN, CONSULTING PRACTICE MANAGER Nurse Practitioner Faculty 08/11/2020 15:51 /marlo/ CECILIO CHUNG Registered Nurse 08/11/2020 ADDENDUM STATUS: COMPLETED Please request above records from [facility] /rachel Anderson MSN, CONSULTING PRACTICE MANAGER Nurse Practitioner Faculty Signed: 08/11/2020 17:20
--- OUTSIDE RECORDS SUMMARY | 2021-07-26 06:27 | XMS_ITS | Encounter Summary ---
:1950 Author Organization Department [facility] Address [address] [place] [id number] Care Team Providers Name Role Phone BARRINGTON [...] MEDICARE MEDICARE PART May 06, PART A [id number] CHYNATYRESE PATIENT (WNR) (M) A 2013 DE63 2 [facility] MEDICARE MEDICARE PART May 06, PART B [id number] CLEMENTE TYRESE PATIENT (WNR) (M) B 2013 DE63 2 [facility] FAMILY [facility] Nov 06, WNR [id number] [phone] TYRESE CLEMENTE PATIENT HEALTH [facility](W 2017 [id number] BBI PLAN NR) FAMILY [facility] Nov 06, [id number] [phone] TYRESE RIOJAS PATIENT [facility] 2017 [id number] B[facility] PLAN [place] Selected Encounter This section includes the information on record at [place] for the Encounter. Date/Time Encounter Type Encounter Reason Provider Source Description Aug 14, 2020 Outpatient COMP [facility] ICD-10-CM Z23. Connor ANDERSON 10:39 AM Encounter Encounter for IDGET K immunization with Provider Comments: Encounter for Immunization IHE Encounter Template Text not used by [facility] Assessments - Encounter Diagnoses This section includes the primary and secondary diagnoses documented forthe Encounter. Date/Time Primary/Secondary Diagnosis Name Provider Source Diagnosis Aug 14, 2020 SECONDARY Encounter for CECILIO CHUNG 10:39 AM immunization L T [facility] Plan of Treatment: Future Appointments (+ 6 [...] 20 appointments. [facility] [place] [facility] Appointment Date/Time Appointment Type Appointment Facili ty Name Sep 22, 2020 09:00 AM [facility] Sep 22, 2020 10:30 AM [facility] Oct 21, 2020 03:00 PM AMBULATORY [...] Interpretation Reference Range Comment Aug 14, 2020 [facility] DRUG SCREEN+ETG([facility]) Specimen Type: URINE 10:46 AM [facility] Comment: The ETG test was developed and its performance characteristics determined by [facility]. It has not been [...] Jul 17, 2020 12:42 PM Reporting Lab: [address] [place] [address] Performing Lab: [facility] [address] [facility] [address] COCAINE SCREEN NONE DETECTED NONE-DETECT ED, CUTOFF= 300 ng/mL BENZODIAZEPINES SCREEN NONE DETECTED NON E-DETECTED, CUTOFF= 200 ng/mL OPIATES SCREEN SCRN POS NONE-DETECTED, CUTOFF= 300 ng/mL CREATININE (URINE,RANDOM) 214.9 mg/dL CANNABINOID SCRN NONE DETECTED NONE-DETE CTED, CUTOFF= 50 ng/mL AMPHETAMINE SCRN NONE DETECTED NONE-DETE CTED, CUTOFF= 1000 ng/mL OXYCODONE SCREEN URINE(j) NONE DETECTED NONE-DETECTED, UNYOYU=769ug/mL ETOH URINE <10.0 mg/dL NEGATIVE-10.0 BUPRENORPHINE SCREEN URINE([facility]) NONE DETECTED NONE-DETECTED, CUT METHADONE SCREEN([facility]) NONE DETECTED NONE -DETECTED, QTIZJS=527hn/mL pH BRIAN 5.1 4.0-10.0 ETHYL GLUCURONIDE([facility]) NONE DETECTED NON E DETECTED, TIIBLO=083ic/mL SPECIFIC GRAVITY BRIAN 1.025 g/mL H 1.003-1. 020 FENTANYL([facility])URINE SCREEN NONE DETECTED NONE DETECTED, CUTOFF=1.0ng/mL Aug 14, 2020 [facility] LIPOPROTEIN Specimen Type: PLASMA 10:45 AM [facility] CHOLESTEROL FRACT. No comment en tered. PANEL Ordering Provider: BARRINGTON ANDERSON Report Released Date/Time: Aug 14, 2020 09:50 AM Reporting Lab: [facility] [address] [facility] [address] Performing Lab: [facility] [address] [facility] [address] CHOLESTEROL 122 mg/dL 0-199 TRIGLYCERIDE 100 mg/dL 0-149 HDL CHOLESTEROL 39 mg/dL L >40 LDL CHOLESTEROL (CALC) 63 mg/dl 0-129 Aug 14, 2020 [facility] GLYCOHEMOGLOBIN (A1C Specimen Type: BLOOD 10:45 AM [facility] ONLY) No comment enter ed. Ordering Provider: BARRINGTON ANDERSON Report Released Date/Time: Aug 14, 2020 09:50 AM Reporting Lab: [facility] [address] [facility] [address] Performing Lab: [facility] [address] [facility] [address] HEMOGLOBIN A1C 8.1 % H 4.0-5.6 Aug 14, 2020 10:45 [facility] VITAMIN B-12 Specimen Type: [facility] Comment: TSH within normal limits. Reflex testing not required. Ordering Provider: BARRINGTON ANDERSON Report Released Date/Time: Aug 14, 2020 09:50 AM Reporting Lab: [facility] [place] [facility] [address] [facility] [address] Performing Lab: [facility] [address] [facility] [address] VITAMIN B-12 209 pg/mL 200-900 Aug 14, 2020 10:45 [facility] VIT D 25-OH(J) Specimen Type: SERUM [facility] Comment: TSH within normal limits. Reflex testing not required. Ordering Provider: BARRINGTON ANDESRON Report Released Date/Time: Aug 14, 2020 09:50 AM Reporting Lab: [place] [facility] [address] [facility] [address] Performing Lab: [facility] [facility] [address] [facility] [address] VIT D 25-OH([facility]) 22.5 ng/mL 20-50 Aug 14, 2020 10:45 [facility] THYROID TESTING Specimen Type: SERUM [facility] [place] Comment: TSH within normal limits. Reflex testing not required. Ordering Provider: BARRINGTON ANDERSON Report Released Date/Time: Aug 14, 2020 09:50 AM Reporting Lab: [facility] [address] [facility] [address] Performing Lab: [place] [facility] [address] [facility] [address] TSH 1.67 uIU/mL 0.35-5.00 REFLEX TESTING comment Aug 14, 2020 10:45 [facility] CBC PROFILE Specimen Type: BLOOD [facility] No comment enter ed. Ordering Provider: BARRINGTON ANDERSON Report Released Date/Time: Aug 14, 2020 09:50 AM Reporting Lab: [facility] [address] [facility] [address] Performing Lab: [facility] [place] [place] [facility] [address] [facility] [address] WBC 7.7 10*3/uL 4.5-11.0 RBC 4.81 10*6/uL [...] NRBC 0.00 10*3/uL 0-0 Aug 14, 2020 [facility] P4 GLU,BUN,CREAT,LYTES,CA Specimen Type: PLASMA 10:45 AM [facility] No comment enter ed. Ordering Provider: BARRINGTON ANDERSON Report Released Date/Time: Aug 14, 2020 09:50 AM Reporting Lab: [facility] [address] [facility] [address] Performing Lab: [facility] [address] [facility] [address] UREA NITROGEN 12 mg/dL 7-25 SODIUM 141 mmol/L 135-145 POTASSIUM 3.9 mmol/L 3.5-5.0 CHLORIDE 105 mmol/L 100-110 CARBON DIOXIDE 27 mmol/L 20-30 ANION GAP 9 mmol/L 4-16 GLUCOSE 153 mg/dL H 65-100 CREATININE 0.92 mg/dl 0.5-1.5 CALCIUM 9.5 mg/dL 8.5-10.5 eGFR 60 mL/min >60 Aug 14, 2020 10:45 [facility] LIVER PROFILE Specimen Type: PLASMA AM [facility] No comment enter ed. Ordering Provider: BARRINGTON ANDERSON Report Released Date/Time: Aug 14, 2020 09:50 AM Reporting Lab: [facility] [address] [facility] [address] Performing Lab: [facility] [address] [facility] [address] PROTEIN, TOTAL 6.8 g/dL 6.0-8.5 ALBUMIN 3.8 [...] lb 25 WHITE 2019 10:13 /min mm[Hg] [facility] Immunizations: All administered on the encounter date This section contains immunizations associated to the Encounter. Immunization Series Date Issued Reaction Comments INFLUENZA, INJECTABLE, QUADRIVALENT, Aug 14, 2020 PRESERVATIVE FREE TD(ADULT) UNSPECIFIED FORMULATION Aug 14, 2020 Site: Left Deltoid Social History: Smoking Status (Most current) and [...] QUIT 15 YRS OR MORE [facility] Jul 19, 2019 10:33 AM VA-TOBACCO NEVER USED [facility] Jul 20, 2018 10:33 AM QUIT TOBACCO USE > 7 YEARS AGO [facility] Dec 23, 2016 10:27 AM LIFETIME NON-TOBACCO USER [facility] Nov 26, 2015 11:35 AM QUIT TOBACCO USE > 7 YEARS AGO [facility] May 19, 2005 08:38 AM LIFETIME NON-SMOKER [facility] Apr 23, 2004 11:39 AM LIFETIME NON-SMOKER [facility] May 15, 2003 10:08 AM LIFETIME NON-SMOKER [facility] Dec 31, 2001 04:36 PM LIFETIME NON-SMOKER [facility] Advance Directives: All historical and [...] 2017 ADVANCE DIRECTIVE LILLIAM DEGROOT Ruth [facility] Radiology Reports: +/- 30 days of the [...] the Encounter. The data comes from all [place] treatment facilities. Date/Time Radiology Report Provider Source Jul 28, 2020 09:00 AM SCREENING MAMMO (BILATERAL) INCLUDES (CAD) IF PERFORMED: [facility] MACARENA CLEMENTE CARRI [id number] -[phone] F Exm Date: JUL 28, 2020@09:00 Req Phys: BARRINGTON ANDERSON Pat Loc: [facility] NURSE PHONE (Req'g Loc Img Loc : MAMMOGRAPHY (OOS) Service : Unknown (Case [id number] COMPLETE) SCREENI NG MAMMO (BILATERAL) INCLU(TROY Detailed) CPT:81060 Reason for Study: screening Clinical History: [facility] [phone] Report Status: Electronically Filed Da cheyanne Reported: JUL 28, 2020 Report: THIS EXAMINATION WAS PERFORMED AND INTERPR ETED BY ANOTHER INSTITUTION. The report has been scanned into the [facility] electronic medical record. To view the report, select the [employer] Tools Menu and choose the Image Display (Viewer) option. Impression: THIS EXAMINATION WAS PERFORMED AND INTERPR ETED BY ANOTHER INSTITUTION. The report has been scanned into the [facility] electronic medical record. To view the report, select the [employer] Tools Menu and choose the Image Display (Viewer) option. Primary Diagnostic Code: BI-RADS CATEGORY 1 (Negative) VERIFIED BY: / *ELECTRONICALLY FILED* Encounter Notes: All associated encounter notes This section contains the clinical notes associated to the Encounter. Date/Time Encounter Note(s) Provider Source Aug 14, 2020 10:40 AM PRIMARY CARE NOTE: CECILIO CHUNG LOCAL TITLE: Injection Note [facility] STANDARD TITLE: PRIMARY CARE NOTE DATE OF NOTE: AUG 14, 2020@10:40 ENTRY DATE: AUG 14, 2020@10:40:15 AUTHOR: CECILIO CHUNG EXP COSIGNER: URGENCY: STATUS: COMPLETED Influenza Immunization: The patient was given the influenza VIS whic h lists the benefits and side effects of the vaccine a nd which reviews the risks of not receiving the flu vaccine. The VIS was reviewed with the [facility] nt and they were given an opportunity to ask questions. The patient was provided education on how to decrease the risk of influenza infection including social distancing and use of good hand hygiene. The patient denied any prior severe reaction to the flu vaccine or its components. The pat ient gave verbal consent to receive the vaccine. The seasonal influenza vaccine VIS given to the patient: VIS version date Jun. The patient received seasonal influenza va ccine today - Influenza, Quadrivalent preservat puneet free (Fluarix) 0.5 ml IM today in Left Deltoid. Manager Of Business: [employer] Lot # and Expiration Date: Lot # [id number] Ex p. 05/05/2021 (Fluarix) Administered by protocol/policy Td Vaccine: Patient has given verbal informed consent. Td vaccine given at this encounter. Patient has received the Tetanus, Diphther ia, (Td) vaccine 0.5 ml IM at this encounter. The patient was also provi ded a copy of the [facility] Td vaccine information sheet, dated Feb 04. Patient denies any previous adverse reaction to Td or Tdap va ccine, and denies currently having a fever. Potent ial side effects of site tenderness, fever, chills, and muscle aches for first 48 hours were e xplained. Special precautions of rare fatal reactions, and/or hy persensitivity were explained. Patient instructed to call with any problems. Comment: Site: Left Deltoid Manager Of Business: [employer] LOT # and Expiration Date: [id number]; 12/26/22 // APRIL Guido CHUNG Registered Nurse Signed: 08/14/2020 10:44
--- OUTSIDE RECORDS SUMMARY | 2021-07-26 06:27 | XMS_ITS ---
:[address] [facility] Address [address] [place] [address] Care Team Providers Name Role Phone BARRINTGON ANDERSON Primary Care Provider Unavailable Insurance Providers: [...] MEDICARE MEDICARE PART May 06, PART A [id number] TYRESE CLEMENTE PATIENT (WNR) (M) A 2013 DE63 2 BBI MEDICARE MEDICARE PART May 06, PART B [id number] CLEMENTE ,BO PATIENT (WNR) (M) B 2013 DE63 2 BBI FAMILY USFAM Nov 06, WNR [id number] [phone] TYRESE CLEMENTE PATIENT HEALTH SYED(W 2017 [id number] BBI PLAN NR) [place] FAMILY USFHP Nov 06, [id number] [phone] TYRESE RIOJAS PATIENT HEALTH -MART 2017 [id number] BBI PLAN [place] Selected Encounter This section includes the information on record at [place] for the Encounter. Date/Time Encounter Type Encounter Description Reason Provider Source Aug 13, 2020 04:50 Outpatient Encounter ADMIN PAT ACTIVTIES PM (MASNONCT) IHE Encounter Template Text not used by MI Plan of Treatment: Future Appointments (+ 6 months) and Future Tests (+/- 45 days) The Plan of Treatment section includes future care activities for the patient from all [place] treatment facilities. This section includes future appointments and future orders which are active, pending or scheduled.Future Appointments This section includes appointments that were scheduled to occur 6 months from the date of the Encounter, up to a maximum of 20 appointments. The data comes from all [facility] Appointment Date/Time Appointment Type Appointment Facili ty Name Aug 14, 2020 09:00 AM AMBULATORY - NONE [facility] Aug 14, 2020 11:30 AM AMBULATORY - MEDICINE [facility] Sep 22, 2020 09:00 AM [facility] Sep 22, 2020 10:30 AM [facility] Oct 21, 2020 03:00 PM AMBULATORY - MEDICINE [facility] Lab Results: +/- 30 days of the encounter This section includes the Chemistry and Hematology Lab Results on record with MI for the patient. Radiology Reports and Pathology Reports are provided separately, in subsequent sections.Lab Results This section contains the Chemistry/Hematology Results that were resulted 30 days before or 30 days after the date of the Encounter. Date/Time Source Result Type Result - Unit Interpretation Reference Range Comment Aug 14, 2020 [facility] DRUG SCREEN+ETG([facility]) Specimen Type: URINE 10:46 AM [facility] Comment: The ETG test was developed and its performance characteristics determined by [facility]. It has not been cleared or [...] PM Reporting Lab: [facility] [address] [facility] [address] Performing Lab: [facility] [address] [facility] [address] COCAINE SCREEN NONE DETECTED NONE-DETECT ED, CUTOFF= 300 ng/mL BENZODIAZEPINES SCREEN NONE DETECTED NON E-DETECTED, CUTOFF= 200 ng/mL OPIATES SCREEN SCRN POS NONE-DETECTED, CUTOFF= 300 ng/mL CREATININE (URINE,RANDOM) 214.9 mg/dL CANNABINOID SCRN NONE DETECTED NONE-DETE CTED, CUTOFF= 50 ng/mL AMPHETAMINE SCRN NONE DETECTED NONE-DETE CTED, CUTOFF= 1000 ng/mL OXYCODONE SCREEN URINE(j) NONE DETECTED NONE-DETECTED, AVLRXZ=334no/mL ETOH URINE <10.0 mg/dL NEGATIVE-10.0 BUPRENORPHINE SCREEN URINE([facility]) NONE DETECTED NONE-DETECTED, CUT METHADONE SCREEN([facility]) NONE DETECTED NONE -DETECTED, CMZKJJ=659de/mL pH BRIAN 5.1 4.0-10.0 ETHYL GLUCURONIDE([facility]) NONE DETECTED NON E DETECTED, JRIIPA=851ev/mL SPECIFIC GRAVITY BRIAN 1.025 g/mL H 1.003-1. 020 FENTANYL([facility])URINE SCREEN NONE DETECTED NONE DETECTED, CUTOFF=1.0ng/mL Aug 14, 2020 [facility] LIPOPROTEIN Specimen Type: PLASMA 10:45 AM [facility] CHOLESTEROL FRACT. No comment en tered. PANEL Ordering Provider: BARRINGTON ANDERSON Report Released Date/Time: Aug 14, 2020 09:50 AM Reporting Lab: [facility] [address] [facility] [address] Performing Lab: [facility] [address] [facility] [address] CHOLESTEROL 122 mg/dL 0-199 TRIGLYCERIDE 100 mg/dL 0-149 HDL CHOLESTEROL 39 mg/dL L >40 LDL CHOLESTEROL (CALC) 63 mg/dl 0-129 Aug 14, 2020 [facility] GLYCOHEMOGLOBIN (A1C Specimen Type: BLOOD 10:45 AM [facility] ONLY) No comment enter ed. Ordering Provider: BARRINGTON ANDERSON Report Released Date/Time: Aug 14, 2020 09:50 AM Reporting Lab: [facility] [address] [facility] [address] Performing Lab: [facility] [address] [facility] [address] HEMOGLOBIN A1C 8.1 % H 4.0-5.6 Aug 14, 2020 10:45 [facility] VITAMIN B-12 Specimen Type: SERUM [facility] Comment: TSH within normal limits. Reflex testing not required. Ordering Provider: BARRINGTON ANDERSON Report Released Date/Time: Aug 14, 2020 09:50 AM Reporting Lab: [facility] [address] [facility] [address] Performing Lab: [facility] [address] [facility] [address] VITAMIN B-12 209 pg/mL 200-900 Aug 14, 2020 10:45 [facility] VIT D 25-OH([facility]) Specimen Type: SERUM [facility] Comment: TSH within normal limits. Reflex testing not required. Ordering Provider: BARRINGTON ANDERSON Report Released Date/Time: Aug 14, 2020 09:50 AM Reporting Lab: [facility] [address] [facility] [address] Performing Lab: [facility] [address] [facility] [address] VIT D 25-OH([facility]) 22.5 ng/mL 20-50 Aug 14, 2020 10:45 [facility] Specimen Type: SERUM [facility] Comment: TSH within normal limits. Reflex testing not required. Ordering Provider: BARRINGTON ANDERSON Report Released Date/Time: Aug 14, 2020 09:50 AM Reporting Lab: [facility] [address] [facility] [address] Performing Lab: [facility] [place] [address] [facility] [address] TSH 1.67 uIU/mL 0.35-5.00 REFLEX TESTING comment Aug 14, 2020 10:45 [facility] CBC PROFILE Specimen Type: BLOOD [facility] No comment enter ed. Ordering Provider: BARRINGTON ANDERSON Report Released Date/Time: Aug 14, 2020 09:50 AM Reporting Lab: [facility] [address] [facility] [address] Performing Lab: [facility] [address] [facility] [address] WBC 7.7 10*3/uL 4.5-11.0 RBC 4.81 10*6/uL [...] NRBC 0.00 10*3/uL 0-0 Aug 14, 2020 [facility] P4 GLU,BUN,CREAT,LYTES,CA Specimen Type: PLASMA 10:45 AM [facility] No comment enter ed. Ordering Provider: BARRINGTON ANDERSON Report Released Date/Time: Aug 14, 2020 09:50 AM Reporting Lab: [facility] [address] [facility] [address] Performing Lab: [facility] [address] [facility] [address] UREA NITROGEN 12 mg/dL 7-25 SODIUM 141 mmol/L 135-145 POTASSIUM 3.9 mmol/L 3.5-5.0 CHLORIDE 105 mmol/L 100-110 CARBON DIOXIDE 27 mmol/L 20-30 ANION GAP 9 mmol/L 4-16 GLUCOSE 153 mg/dL H 65-100 CREATININE 0.92 mg/dl 0.5-1.5 CALCIUM 9.5 mg/dL 8.5-10.5 eGFR 60 mL/min >60 Aug 14, 2020 10:45 [facility] LIVER PROFILE Specimen Type: PLASMA AM [facility] No comment enter ed. Ordering Provider: BARRINGTON ANDERSON Report Released Date/Time: Aug 14, 2020 09:50 AM Reporting Lab: [facility] [address] [facility] [address] Performing Lab: [facility] [address] [facility] [address] PROTEIN, TOTAL 6.8 g/dL 6.0-8.5 ALBUMIN 3.8 g/dL 3.2-5.0 BILIRUBIN, TOTAL 0.7 mg/dL 0.2-1.2 ALKALINE PHOSPHATASE 67 U/L 40-150 ALT(SGPT) 32 U/L 7-52 AST(SGOT) 21 U/L 5-34 FIB-4 SCORE 0.87 INDEX <2.67 Social History: Smoking Status (Most current) and Tobacco Use (All prior to encounter date) This section includes the most current, and the historical, smoking and tobacco-related health factors from the [place] facility where the Encounter took place.Current Smoking Status This section includes the most current smoking, or tobacco-related health factor, from the [place] facility where the Encounter took place. Date/Time Current Smoking Status Comment Facility Jul 17, 2020 11:00 AM VA-TOBACCO FORMER USER [facility] Tobacco Use History This section includes a history of the smoking, or tobacco-related health factors, that were collected on or before the date of the Encounter. The data comes from the [place] facility where the Encounter took place. Date/Time Smoking Status/Tobacco Use Comment [facility] Jul 17, 2020 11:00 AM VA-TOBACCO QUIT 15 YRS OR MORE [facility] Jul 19, 2019 10:33 AM VA-TOBACCO NEVER USED [facility] Jul 20, 2018 10:33 AM QUIT TOBACCO USE > 7 YEARS AGO [place] [facility] Dec 23, 2016 10:27 AM LIFETIME NON-TOBACCO USER [facility] Nov 26, 2015 11:35 AM QUIT TOBACCO USE > 7 YEARS AGO [facility] May 19, 2005 08:38 AM LIFETIME NON-SMOKER [place] [facility] Apr 23, 2004 11:39 AM LIFETIME NON-SMOKER [place] [facility] May 15, 2003 10:08 AM LIFETIME NON-SMOKER [facility] Dec 31, 2001 04:36 PM LIFETIME NON-SMOKER [facility] Advance Directives: All historical and current Section Date Range: From patient's date of to the date document was created. This section includes ALL of a patient's completed or amended VA Advance and Rescinded Directives. The entries below indicate that a directive exists for the patient, but an actual copy is not included with this document. The data comes from all [place] facilities. Date Advance Directives Provider Source Jun 05, 2017 ADVANCE DIRECTIVE HANS DEGROOTLL Ruth CLARK ROSANG[facility] Radiology Reports: +/- 30 days of [...] the Encounter. The data comes from all [place] treatment facilities. Date/Time Radiology Report Provider Source Jul 28, 2020 09:00 AM SCREENING MAMMO (BILATERAL) INCLUDES (CAD) IF PERFORMED: [facility] MACARENA CLEMENTE [id number] -[phone] F Exm Date: JUL 28, 2020@09:00 Req Phys: BARRINGTON ANDERSON Pat Loc: [facility] NURSE PHONE (Req'g Loc Img Loc : MAMMOGRAPHY (OOS) Service : Unknown (Case [id number] COMPLETE) SCREENI NG MAMMO (BILATERAL) INCLU(TROY Detailed) CPT:19548 Reason for Study: screening Clinical History: [facility] [phone] Report Status: Electronically Filed Da te Reported: JUL 28, 2020 Report: THIS EXAMINATION WAS PERFORMED AND INTERPR ETED BY ANOTHER INSTITUTION. The report has been scanned into the [facility] electronic medical record. To view the report, select the [employer] Tools Menu and choose the Image Display (Viewer) option. Impression: THIS EXAMINATION WAS PERFORMED AND INTERPR ETED BY ANOTHER INSTITUTION. The report has been scanned into the [facility] electronic medical record. To view the report, select the [employer] Tools Menu and choose the Image Display (Viewer) option. Primary Diagnostic Code: BI-RADS CATEGORY 1 (Negative) VERIFIED BY: / *ELECTRONICALLY FILED* Encounter Notes: All associated encounter notes This section contains the clinical notes associated to the Encounter. Date/Time Encounter Note(s) Provider Source Aug 13, 2020 04:50 PM ACCOUNTING OF DISCLOSURES NOTE: ARASH MCDOWELL [facility] LOCAL TITLE: STATE PRESCRIPTION DRUG MONITORING PROGRAM (SPDMP) [facility] STANDARD TITLE: ACCOUNTING OF DISCLOSURES NOTE DATE OF NOTE: AUG 13, 2020@16:50 ENTRY DATE: AUG 13, 2020@16:50:31 AUTHOR: KAELA MCDOWELL EXP COSIGNER: URGENCY: STATUS: COMPLETED V1-STATE PRESCRIPTION DRUG MONITORING PROGRAM (S PDMP) The purpose of this query was a part of the medi cation reconciliation process for the: Review for patient safety. The following State Prescription Drug Monitoring Program(s) were queried for this patient: [facility] (02/22/2018: VA PDMP information may be placed in the patient medical records that pertains to VA specific data ONLY, not from an interstate query) [facility] No prescription(s) for controlled substances wer e found to be filled outside the VA. /marlo/ KAELA MCDOWELL Signed: 08/13/2020 16:50
--- OUTSIDE RECORDS SUMMARY | 2021-07-26 06:27 | XMS_ITS | Encounter Summary ---
:1950 Author Organization Department [facility] Address [address] [place] [id number] Care Team Providers Name Role Phone BARRINGTON [...] MEDICARE MEDICARE PART May 06, PART A [id number] CLEMENTE ,TYRESE PATIENT (WNR) (M) A 2013 DE63 2 BBI MEDICARE MEDICARE PART May 06, PART B [id number] CHYNA TYRESE PATIENT (WNR) (M) B 2013 DE63 2 BBI [facility] USFA Nov 06, WNR [id number] [phone] TYRESE CLEMENTE PATIENT HEALTH SYED(W 2017 [id number] 364 BBI PLAN NR) [facility] Nov 06, [id number] [phone] TYRESE RIOJAS PATIENT [facility] 2017 [id number] BBI PLAN [place] Selected Encounter This section includes the information on record at [place] for the Encounter. Date/Time Encounter Type Encounter Reason Provider Source Description Sep 22, 2020 OFFICE/OUTPATIEN OPTOMETRY ICD-10-CM ALCIDES ONEAL 09:00 AM T VISIT EST H25.813 E Combined forms of age-related cataract, bilateral with Provider Comments: Cataract,Combin ed Nucl/Cortical,B ilateral IHE Encounter Template Text not used by VA Assessments - Encounter Diagnoses This section includes the primary and secondary diagnoses documented forthe Encounter. 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 The data comes [facility] [place] [facility] Appointment Date/Time Appointment Type Appointment Facili ty Name Oct 21, 2020 03:00 PM AMBULATORY - MEDICINE [facility] [place] [facility] March 12, 2021 09:30 AM AMBUL[facility]ORY - MEDICINE [facility] March 12, 2021 10:30 AM AMB[facility] - SURGERY [place] [facility] [facility] March 15, 2021 10:00 AM AMBULATORY - MEDICINE [place] [facility] [facility] Social History: Smoking Status (Most current) and [...] 11:00 AM VA-TOBACCO FORMER USER [facility] Tobacco Use History This section includes a history of the smoking, or tobacco-related health factors, that were collected on or before the date of the Encounter. The data comes from the [place] facility where the Encounter took place. Date/Time Smoking Status/Tobacco Use Comment [facility] Jul 17, 2020 11:00 AM VA-TOBACCO QUIT 15 YRS OR MORE [place] [facility] Jul 19, 2019 10:33 AM VA-TOBACCO NEVER USED [facility] Jul 20, 2018 10:33 AM QUIT TOBACCO USE > 7 YEARS AGO [place] [facility] Dec 23, 2016 10:27 AM LIFETIME NON-TOBACCO USER [place] [facility] Nov 26, 2015 11:35 AM QUIT TOBACCO USE > 7 YEARS AGO [place] [facility] May 19, 2005 08:38 AM LIFETIME NON-SMOKER [place] [facility] Apr 23, 2004 11:39 AM LIFETIME NON-SMOKER [place] [facility] May 15, 2003 10:08 AM LIFETIME NON-SMOKER [place] [facility] Dec 31, 2001 04:36 PM LIFETIME NON-SMOKER [place] [facility] Advance Directives: All historical [...] 05, 2017 ADVANCE DIRECTIVE LILLIAM DEGROOT [facility] Encounter Notes: All associated encounter notes This section contains the clinical notes associated to the Encounter. Date/Time Encounter Note(s) Provider Source Sep 22, 2020 09:13 AM EYE E & M NOTE: ALCIDES ONEAL LOCAL TITLE: Eye Exam Template [facility] STANDARD TITLE: EYE E & M NOTE DATE OF NOTE: SEP 22, 2020@09:13 ENTRY DATE: SEP 22, 2020@09:13:51 AUTHOR: ALCIDES ONEAL COSIGNER: URGENCY: STATUS: COMPLETED NEW OR ESTABLISHED PATIENT OPHTHALMIC EX AMINATION CONSULTATION, SPECIALTY CODE OR E/M SERVICE Active Outpatient Medications (excluding Supplie s): Active Outpatient Medications Status 1) ATORVASTATIN CALCIUM 40MG TAB TAKE ONE TABL ET BY ACTIVE MOUTH EVERY DAY TO LOWER CHOLESTEROL 2) FAMOTIDINE 20MG TAB TAKE ONE TABLET BY MOUT H AT ACTIVE BEDTIME FOR STOMACH ACID 3) GLIPIZIDE 10MG TAB TAKE ONE TABLET BY MOUTH TWICE A ACTIVE (S) DAY FOR DIABETES 4) METFORMIN HCL 500MG 24HR SA TAB TAKE FOUR T ABLETS BY ACTIVE MOUTH EVERY DAY FOR DIABETES Active Non-VA Medications Status 1) Non-VA ASPIRIN 325MG EC TAB 325MG MOUTH FREDY DAY ACTIVE 5 Total Medications Allergies/Adverse Reactions: FOOD DYES, FOOD [...] Nevus, non-neoplastic 15. Gender dysphoria (SNOMED CT [id number]) 16. 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 Depressive Disorder Nec 19. ANAPH SHOCK/FODD ADD. 70 year old WHITE FEMALE, patient CHIEF COMPLAINT AND HISTORY OF PRESENT ILLNESS ( HPI): Patient presents for an annual eye exam. Patient has been experiencing blurry vision out of both eyes. Night time driv ing sucks. Usually has to follow the side of the road in order to see. (-) Flashes, pain, diplopia (+) Floaters - longstanding, no new increase (+) DM - diagnosed 1999 Eye Medications: None Neurological and Psychiatric Status: Orientation : Oriented to person, time, place Mood and Affect: normal, no agitation, no anxiet y, no depressive behaviors in clinic OCULAR HISTORY: 1.Diabetes type II X 1999 without Diabetic Retin opathy or CSME OU 2.Choroidal Nevus OD 3.Refractive Error with Presbyopia OU 4.Senile Cataract OU-mild VISUAL ACUITY (with correction) OD: 20/40+ PH: 20/20 OS: 20/30+ PH: 20/20-2 Current Rx OD -2.50 -1.00 X105 OS -2.25 -1.50 X035 Add: +3.00 Glare test (with habbitual correction) OD: 20/40+2 OS: 20/40 REFRACTION and BEST-CORRECTED VISION OD -2.25 -1.25 X105 20/25 OS -2.25 -1.75 X035 20/25+ Add: +2.75 20/20 OCULAR MOTILITY (EOM): FROM OU CONFRONTATION VIS CLEMENTE: FTFC OD & OS PUPILS: PERRL (-)APD OU ORBITS/ADNEXA: Normal OU ANTERIOR SEGMENT AND SLIT LAMP EXAM: Lids/Lashes: OD: MGD 1+; trace blepharitis; puncta op en; dermatochalasis OS: MGD 1+; trace blepharitis; puncta op en; dermatochalasis; inferior lid margin papilloma Scleral and Conjunctiva: OD: clear; white and quiet OS: clear; white and quiet Cornea: OD: vertical endothelial folds; debris i n tear film OS: vertical endothelial folds; debris i n tear film Anterior Chamber: deep and quiet no cells or fl are OU [place] Angle estimation: OD: >1:1 ratio open 4+ OS: >1:1 ratio open 4+ Iris: flat and intact OU; (+)TIDs around pupil margins OU Tonometry: iCare OD 13 mmHg OS 14 mmHg Time: 10:04 DILATION OU: PATIENT EDUCATED ON SIDE EFFECTS O F DILATION PRIOR TO DROP INSTILLATION. SIDE EFFECT DISCUSSED INCLUDE LIGH T SENSITIVITY AND BLURRED VISION AT NEAR. 1 gtt 1% Tropicamide 1 gtt 2.5% Phenylephrine TIME: 09:52 INTERNAL EYE EXAMINATION BY SLIT LAMP, FUNDUSCOP Y AND BINOCULAR INDIRECT OPHTHALMOSCOPE: Lens: OD: 1+ NSC; 1+ ACC spoking not in the visual axis; vacuoles paracentral OS: 1+ NSC; 1+ ACC spoking inferiornasal not in the visual axis; trace PSC; vacuoles central Vitreous: OD: PVD with syneresis OS: PVD wtih syneresis Nerve: [place] and healthy OU; (-)NVD OD C/D: 0.5V/0.4H; margins distinct and well perfused OS C/D: 0.4V/0.3H; margins distinct and well perfused Posterior Pole: OD: flat chorodial nevus adjacent to OHN nasally; disappears on red- free, no overlying drusen or lipofus sergio OS: clear Macula: (-)CSME OD: flat and with pigment mottling; trac e ERM; coalescing drusen superior macula OS: flat and evenly pigmented Vessels: OD: 2/3 ratio normal caliber OS: 2/3 ratio normal caliber Mid-peripheral and Peripheral Retina: (-)NVE OD: flat and intact 360; CHRPE with lots of lacunea ~2DD in size inferior nasal far periphery OS: flat and intact 360 ASSESSMENT/PLAN 1. Diabetes Type II without Retinopathy OU - Diagnosed 1999 //Educated patient. Stressed the importa nce of maintaining a healthy lifestyle through diet/exercise/medications compliance. Co -manged with PCP. 2. Choroidal Nevus OD - STABLE //Monitor. RTC RJ if experiencing flashes, jacqueline aters, or loss of vision. 3. Dry Eye Syndrome OU //Educated patient. Recommended using artifical tears BID-QID for relief. 4. Cataracts OS>OD - Mild Visual Signafant OS>OD //Patient is symptomatic at night. Treat ment not indicated at this time. Limit night driving. Close OS prn. 5. Ametropia with Presbyopia OU //Finalized glasses RX at [facility] and put through a new consultation for glasses. 6. CHRPE OD //Monitor. RTC RJ if experiencing flashes, jacqueline aters, or loss of vision. 7. Macular Drusen OD //Educated patient. Stressed the importa nce of maintaining a healthy lifestyle through leafy green diet/uv protection/vitamin s upplements. RTC ORDER: 6 months anterior seg/catarac t check; DFE and cataract consult prn. STUDENT SUPERVISION: Optometry student Adela parrish pated in the care of this patient. The student performed an initial history, review of systems, medication review, and ophthalmic examination. The above note represent s care provided by me and is NOT a student note. Supervising Fabrication Operator: Alcides Oneal O.D. RESIDENT SUPERVISION: I have seen and discussed this patient with my supervising doctor. My supervising doctor was present for and/or directly examined this patient. My supervising doctor agre es with my assessment and plan and is identified as a cosigner on this note. Note complete () /marlo/ ALCIDES ONEAL Staff Fabrication Operator Signed: 09/22/2020 17:27
--- OUTSIDE RECORDS SUMMARY | 2021-07-26 06:28 | XMS_ITS | Encounter Summary ---
:1950 Author Organization Department [facility] Address [address] [place] [id number] Care Team Providers Name Role Phone BARRINGTON [...] MEDICARE MEDICARE PART May 06, PART A [id number] CHYNA TYRESE PATIENT (WNR) (M) A 2013 DE63 2 BBI MEDICARE MEDICARE PART May 06, PART B [id number] TYRESE CLEMENTE PATIENT (WNR) (M) B 2013 DE63 2 BBI [facility] USFA Nov 06, WNR [id number] [phone] TYRESE CLEMENTE PATIENT HEALTH SYED(W 2017 [id number] BBI PLAN NR) [facility] Nov 06, [id number] [phone] TYRESE RIOJAS PATIENT HEALTH -[facility] 2017 [id number] BBI PLAN [place] Selected Encounter This section includes the information on record at [place] for the Encounter. Date/Time Encounter Type Encounter Description Reason Provider Source Jul 28, 2020 02:00 Outpatient Encounter COMMUNITY CARE PM CONSULT IHE Encounter Template Text not used by [facility] Plan of Treatment: Future Appointments (+ 6 months) and Future Tests (+/- 45 days) The Plan of Treatment section includes future care activities for the patient from all [place] treatment facilities. This section includes future appointments and future orders which are active, pending or scheduled.Future Appointments This section includes appointments that were scheduled to occur 6 months from the date of the Encounter, up to a maximum of 20 appointments. The data comes [facility] [place] [facility] Appointment Date/Time Appointment Type Appointment Facili ty Name Jul 31, 2020 09:00 AM AMBULATORY - MEDICINE [facility] Aug 14, 2020 09:00 AM AMBULATORY - NONE [facility] Aug 14, 2020 11:30 AM AMBULATORY - MEDICINE [facility] Sep 22, 2020 09:00 AM [place] [facility] Sep 22, 2020 10:30 [facility] Oct 21, 2020 03:00 PM AMBULATORY - MEDICINE [facility] Lab Results: +/- 30 days of the encounter This section includes the Chemistry and Hematology Lab Results on record with [place] for the patient. Radiology Reports and Pathology Reports are provided separately, in subsequent sections.Lab Results This section contains the Chemistry/Hematology Results that were resulted 30 days before or 30 days after the date of the Encounter. Date/Time Source Result Type Result - Unit Interpretation Reference Range Comment Aug 14, 2020 [facility] DRUG SCREEN+ETG(J) Specimen Type: URINE 10:[address] [facility] Comment: The ETG test was developed and its performance characteristics determined by [facility]. It has not been cleared or approved [...] PM Reporting Lab: [facility] [address] [facility] [address] Performing Lab: [facility] [address] [facility] [address] COCAINE SCREEN NONE DETECTED NONE-DETECT ED, CUTOFF= 300 ng/mL BENZODIAZEPINES SCREEN NONE DETECTED NON E-DETECTED, CUTOFF= 200 ng/mL OPIATES SCREEN SCRN POS NONE-DETECTED, CUTOFF= 300 ng/mL CREATININE (URINE,RANDOM) 214.9 mg/dL CANNABINOID SCRN NONE DETECTED NONE-DETE CTED, CUTOFF= 50 ng/mL AMPHETAMINE SCRN NONE DETECTED NONE-DETE CTED, CUTOFF= 1000 ng/mL OXYCODONE SCREEN URINE(j) NONE DETECTED NONE-DETECTED, ADFNSP=588hu/mL ETOH URINE <10.0 mg/dL NEGATIVE-10.0 BUPRENORPHINE SCREEN URINE([facility]) NONE DETECTED NONE-DETECTED, CUT METHADONE SCREEN([facility]) NONE DETECTED NONE -DETECTED, SUWQPM=228qw/mL pH BRIAN 5.1 4.0-10.0 ETHYL GLUCURONIDE([facility]) NONE DETECTED NON E DETECTED, ISAZOC=530oz/mL SPECIFIC GRAVITY BRIAN 1.025 g/mL H 1.003-1. 020 FENTANYL([facility])URINE SCREEN NONE DETECTED NONE DETECTED, CUTOFF=1.0ng/mL Aug 14, 2020 [facility] LIPOPROTEIN Specimen Type: PLASMA 10:[address] [facility] CHOLESTEROL FRACT. No comment en tered. PANEL Ordering Provider: BARRINGTON ANDERSON Report Released Date/Time: Aug 14, 2020 09:50 AM Reporting Lab: [facility] [address] [facility] [address] Performing Lab: [facility] [address] [facility] [address] CHOLESTEROL 122 mg/dL 0-199 TRIGLYCERIDE 100 mg/dL 0-149 HDL CHOLESTEROL 39 mg/dL L >40 LDL CHOLESTEROL (CALC) 63 mg/dl 0-129 Aug 14, 2020 [facility] GLYCOHEMOGLOBIN (A1C Specimen Type: BLOOD 10:45 AM [facility] No comment enter ed. Ordering Provider: BARRINGTON ANDERSON Report Released Date/Time: Aug 14, 2020 09:50 AM Reporting Lab: [facility] [address] [facility] [address] Performing Lab: [facility] [address] [facility] [address] HEMOGLOBIN A1C 8.1 % H 4.0-5.6 Aug 14, 2020 10:45 [facility]-12 Specimen Type: SERUM [facility] Comment: TSH within normal limits. Reflex testing not required. Ordering Provider: BARRINGTON ANDERSON Report Released Date/Time: Aug 14, 2020 09:50 AM Reporting Lab: [place] [facility] [address] [facility] [address] Performing Lab: [place] [facility] [address] [facility] [address] VITAMIN B-12 209 pg/mL 200-900 Aug 14, 2020 10:45 [place] VIT D 25-OH([facility]) Specimen Type: SERUM [facility] Comment: TSH within normal limits. Reflex testing not required. Ordering Provider: BARRINGTON ANDERSON Report Released Date/Time: Aug 14, 2020 09:50 AM Reporting Lab: [place] [facility] [address] [facility] [address] Performing Lab: [place] [facility] [address] [facility] [address] VIT D 25-OH([facility]) 22.5 ng/mL 20-50 Aug 14, 2020 10:45 [place] THYROID TESTING Specimen Type: SERUM AM [facility] Comment: TSH within normal limits. Reflex testing not required. Ordering Provider: BARRINGTON ANDERSON Report Released Date/Time: Aug 14, 2020 09:50 AM Reporting Lab: [place] [facility] [address] [facility] [address] Performing Lab: [place] [facility] [address] [facility] [address] TSH 1.67 uIU/mL 0.35-5.00 REFLEX TESTING comment Aug 14, 2020 10:45 [place] CBC PROFILE Specimen Type: BLOOD AM [facility] No comment enter ed. Ordering Provider: BARRINGTON ANDERSON Report Released Date/Time: Aug 14, 2020 09:50 AM Reporting Lab: [place] [facility] [address] [facility] [address] Performing Lab: [place] [facility] [address] [facility] [address] WBC 7.7 10*3/uL 4.5-11.0 RBC 4.81 10*6/uL [...] NRBC 0.00 10*3/uL 0-0 Aug 14, 2020 [facility] P4 GLU,BUN,CREAT,LYTES,CA Specimen Type: PLASMA 10:[address] [facility] No comment enter ed. Ordering Provider: BARRINGTON ANDERSON Report Released Date/Time: Aug 14, 2020 09:50 AM Reporting Lab: [facility] [address] [facility] [address] Performing Lab: [facility] [address] [facility] [address] UREA NITROGEN 12 mg/dL 7-25 SODIUM 141 mmol/L 135-145 POTASSIUM 3.9 mmol/L 3.5-5.0 CHLORIDE 105 mmol/L 100-110 CARBON DIOXIDE 27 mmol/L 20-30 ANION GAP 9 mmol/L 4-16 GLUCOSE 153 mg/dL H 65-100 CREATININE 0.92 mg/dl 0.5-1.5 CALCIUM 9.5 mg/dL 8.5-10.5 eGFR 60 mL/min >60 Aug 14, 2020 10:45 [place] LIVER PROFILE Specimen Type: PLASMA AM [facility] No comment enter ed. Ordering Provider: BARRINGTON ANDERSON Report Released Date/Time: Aug 14, 2020 09:50 AM Reporting Lab: [facility] [address] [facility] [address] Performing Lab: [facility] [address] [facility] [address] PROTEIN, TOTAL 6.8 g/dL 6.0-8.5 ALBUMIN 3.8 g/dL 3.2-5.0 BILIRUBIN, TOTAL 0.7 mg/dL 0.2-1.2 ALKALINE PHOSPHATASE 67 U/L 40-150 ALT(SGPT) 32 U/L 7-52 AST(SGOT) 21 U/L 5-34 FIB-4 SCORE 0.87 INDEX <2.67 Social History: Smoking Status (Most current) and Tobacco Use (All prior to encounter date) This section includes the most current, and the historical, smoking and tobacco-related health factors from the [place] facility where the Encounter took place.Current Smoking Status This section includes the most current smoking, or tobacco-related health factor, from the [place] facility where the Encounter took place. Date/Time Current Smoking Status Comment Facility Jul 17, 2020 11:00 AM VA-TOBACCO FORMER USER [facility] Tobacco Use History This section includes a history of the smoking, or tobacco-related health factors, that were collected on or before the date of the Encounter. The data comes from the [place] facility where the Encounter took place. Date/Time Smoking Status/Tobacco Use Comment [facility] Jul 17, 2020 11:00 AM VA-TOBACCO QUIT 15 YRS OR MORE [place] [facility] Jul 19, 2019 10:33 AM VA-TOBACCO NEVER USED [place] [facility] Jul 20, 2018 10:33 AM QUIT TOBACCO USE > 7 YEARS AGO [place] [facility] Dec 23, 2016 10:27 AM LIFETIME NON-TOBACCO USER [place] [facility] Nov 26, 2015 11:35 AM QUIT TOBACCO USE > 7 YEARS AGO [place] [facility] May 19, 2005 08:38 AM LIFETIME NON-SMOKER [place] [facility] Apr 23, 2004 11:39 AM LIFETIME NON-SMOKER [facility] May 15, 2003 10:08 AM LIFETIME NON-SMOKER [facility] Dec 31, 2001 04:36 PM LIFETIME NON-SMOKER [facility] Advance Directives: All historical and current Section Date Range: From patient's date of to the date document was created. This section includes ALL of a patient's completed or amended VA Advance and Rescinded Directives. The entries below indicate that a directive exists for the patient, but an actual copy is not included with this document. The data comes from all [place] facilities. Date Advance Directives Provider Source Jun 05, 2017 ADVANCE DIRECTIVE ZANELILLIAM Ruth ADAMES T [facility] Radiology Reports: +/- 30 days of [...] the Encounter. The data comes from all [place] treatment facilities. Date/Time Radiology Report Provider Source Jul 28, 2020 09:00 AM SCREENING MAMMO (BILATERAL) INCLUDES (CAD) IF PERFORMED: [facility] MACARENA CLEMENTE [id number] -[birth year] 26 9 F Exm Date: JUL 28, 2020@09:00 Req Phys: BARRINGTON ANDERSON Pat Loc: [facility] NURSE PHONE (Req'g Loc Img Loc : MAMMOGRAPHY (OOS) Service : Unknown (Case 451 COMPLETE) SCREENI NG MAMMO (BILATERAL) INCLU([facility] Detailed) CPT:78123 Reason for Study: screening Clinical History: [facility] [phone] Report Status: Electronically Filed Da beni Reported: JUL 28, 2020 Report: THIS EXAMINATION WAS PERFORMED AND INTERPR ETED BY ANOTHER INSTITUTION. The report has been scanned into the [facility] electronic medical record. To view the report, select the CPRS Tools Menu and choose the Image Display (Viewer) option. Impression: THIS EXAMINATION WAS PERFORMED AND INTERPR ETED BY ANOTHER INSTITUTION. The report has been scanned into the patie nts electronic medical record. To view the report, select the CPRS Tools Menu and choose the Image Display (Viewer) option. Primary Diagnostic Code: BI-RADS CATEGORY 1 (Negative) VERIFIED BY: / *ELECTRONICALLY FILED* Encounter Notes: All associated encounter notes This section contains the clinical notes associated to the Encounter. Date/Time Encounter Note(s) Provider Source Jul 28, 2020 02:00 PM NONVA CONSULT: KAITLYNN AMBROSIO T LOCAL TITLE: COMMUNITY CARE CONSULT RESULT NOTE [facility] STANDARD TITLE: NONVA CONSULT DATE OF NOTE: JUL 28, 2020@14:00 ENTRY DATE: SEP 22, 2020@10:39:23 AUTHOR: KAITLYNN AMBROSIO COSIGNER: URGENCY: STATUS: COMPLETED The following Community Care consult has been completed. See scanned document for report. Community Care Consult Results Mammogram Exam Result: Normal Date: July 28, 2020 Location: Non [place] Facility Comment: SCREENING MAMMO, [facility], BIRADS 1-NEGATIVE /es/ KAITLYNN AMBROSIO Coordinator Signed: 09/22/2020 10:40
--- OUTSIDE RECORDS SUMMARY | 2021-07-26 06:28 | XMS_ITS | Encounter Summary ---
:1950 Author Organization [facility] Address [address] [place] [address] Care Team Providers Name Role Phone BARRINGTON [...] MEDICARE MEDICARE PART May 06, PART A [id number] CLEMENTE TYRESE PATIENT (WNR) (M) A 2013 DE63 2 BBI MEDICARE MEDICARE PART May 06, PART B [id number] TYRESE CLEMENTE PATIENT (WNR) (M) B 2013 DE63 2 BBI [facility] USFA Nov 06, WNR [id number] [phone] TYRESE CLEMENTE PATIENT HEALTH [facility](W 2017 [id number] 364 BBI PLAN NR) [facility] Nov 06, [id number] [phone] TYRESE RIOJAS PATIENT [facility] 2017 [id number] 364 BBI PLAN [place] Selected Encounter This section includes the information on record at [place] for the Encounter. Date/Time Encounter Type Encounter Description Reason Provider Source Jul 28, 2020 12:00 Outpatient Encounter EVENT (HISTORICAL) AM IHE Encounter Template Text not used by VA Plan of Treatment: Future Appointments (+ 6 months) and Future Tests (+/- 45 days) The Plan of Treatment section includes future care activities for the patient from all [place] treatment facilities. This section includes future appointments and future orders which are active, pending or scheduled.Future Appointments This section includes appointments that were scheduled to occur 6 months from the date of the Encounter, up to a maximum of 20 appointments. The data comes from all [place] [facility] Appointment Date/Time Appointment Type Appointment Facili ty Name Jul 31, 2020 09:00 AM [facility] Aug 14, 2020 09:00 AM AMB[place]ORY - NONE [place] [facility] Aug 14, 2020 11:30 AM AMBUL[facility] - MEDICINE [facility] Sep 22, 2020 09:00 AM AM[place]ORY [place] [facility] Sep 22, 2020 10:30 AM [place] [facility] Oct 21, 2020 03:00 PM AMBULATORY - MEDICINE [facility] Lab Results: +/- 30 days [...] Interpretation Reference Range Comment Aug 14, 2020 [facility] DRUG SCREEN+ETG([facility]) Specimen Type: URINE 10:46 AM [facility] Comment: The ETG test was developed and its performance characteristics determined by [facility]. It has not been [...] Jul 17, 2020 12:42 PM Reporting Lab: [facility] [address] [facility] [address] Performing Lab: [facility] [address] [facility] [address] COCAINE SCREEN NONE DETECTED NONE-DETECT ED, CUTOFF= 300 ng/mL BENZODIAZEPINES SCREEN NONE DETECTED NON E-DETECTED, CUTOFF= 200 ng/mL OPIATES SCREEN SCRN POS NONE-DETECTED, CUTOFF= 300 ng/mL CREATININE (URINE,RANDOM) 214.9 mg/dL CANNABINOID SCRN NONE DETECTED NONE-DETE CTED, CUTOFF= 50 ng/mL AMPHETAMINE SCRN NONE DETECTED NONE-DETE CTED, CUTOFF= 1000 ng/mL OXYCODONE SCREEN URINE(j) NONE DETECTED NONE-DETECTED, ARTLHN=700pq/mL ETOH URINE <10.0 mg/dL NEGATIVE-10.0 BUPRENORPHINE SCREEN URINE([facility]) NONE DETECTED NONE-DETECTED, CUT METHADONE SCREEN([facility]) NONE DETECTED NONE -DETECTED, BAPDGS=941dc/mL pH BRIAN 5.1 4.0-10.0 ETHYL GLUCURONIDE([facility]) NONE DETECTED NON E DETECTED, SXTIWE=238dp/mL SPECIFIC GRAVITY BRIAN 1.025 g/mL H 1.003-1. 020 FENTANYL([facility])URINE SCREEN NONE DETECTED NONE DETECTED, CUTOFF=1.0ng/mL Aug 14, 2020 [facility] LIPOPROTEIN Specimen Type: PLASMA 10:45 AM [facility] CHOLESTEROL FRACT. No comment en tered. PANEL Ordering Provider: BARRINGTON ANDERSON Report Released Date/Time: Aug 14, 2020 09:50 AM Reporting Lab: [facility] [address] [facility] [address] Performing Lab: [address] [address] CHOLESTEROL 122 mg/dL 0-199 TRIGLYCERIDE 100 mg/dL 0-149 HDL CHOLESTEROL 39 mg/dL L >40 LDL CHOLESTEROL ([facility]) 63 mg/dl 0-129 Aug 14, 2020 [facility] GLYCOHEMOGLOBIN (A1C Specimen Type: BLOOD 10:45 AM [facility] No comment enter ed. Ordering Provider: BARRINGTON ANDERSON Report Released Date/Time: Aug 14, 2020 09:50 AM Reporting Lab: [facility] [address] [facility] [address] Performing Lab: [facility] [address] [facility] [address] HEMOGLOBIN A1C 8.1 % H 4.0-5.6 Aug 14, 2020 10:45 [facility] VITAMIN B-12 Specimen Type: SERUM AM [facility] Comment: TSH within normal limits. Reflex testing not required. Ordering Provider: BARRINGTON ANDERSON Report Released Date/Time: Aug 14, 2020 09:50 AM Reporting Lab: [place] [facility] [address] [facility] [address] Performing Lab: [place] [facility] [address] [facility] [address] VITAMIN B-12 209 pg/mL 200-900 Aug 14, 2020 10:45 [place] VIT D 25-OH([facility]) Specimen Type: SERUM AM [facility] Comment: TSH within normal limits. Reflex testing not required. Ordering Provider: BARRINGTON ANDERSON Report Released Date/Time: Aug 14, 2020 09:50 AM Reporting Lab: [place] [facility] [address] [facility] [address] Performing Lab: [place] [facility] [address] [facility] [address] VIT D 25-OH([facility]) 22.5 ng/mL 20-50 Aug 14, 2020 10:45 [place] THYROID TESTING Specimen Type: SERUM AM [facility] Comment: TSH within normal limits. Reflex testing not required. Ordering Provider: BARRINGTON ANDERSON Report Released Date/Time: Aug 14, 2020 09:50 AM Reporting Lab: [place] [facility] [address] [facility] [address] Performing Lab: [place] [facility] [address] [facility] [address] TSH 1.67 uIU/mL 0.35-5.00 REFLEX TESTING comment Aug 14, 2020 10:45 [place] CBC PROFILE Specimen Type: BLOOD AM [facility] No comment enter ed. Ordering Provider: BARRINGTON ANDERSON Report Released Date/Time: Aug 14, 2020 09:50 AM Reporting Lab: [place] [facility] [address] [facility] [address] Performing Lab: [place] [facility] [address] [facility] [place] [address] WBC 7.7 10*3/uL 4.5-11.0 RBC 4.81 10*6/uL [...] NRBC 0.00 10*3/uL 0-0 Aug 14, 2020 [facility] P4 GLU,BUN,CREAT,LYTES,CA Specimen Type: PLASMA 10:45 AM [facility] No comment enter ed. Ordering Provider: BARRINGTON ANDERSON Report Released Date/Time: Aug 14, 2020 09:50 AM Reporting Lab: [facility] [address] [facility] [address] Performing Lab: [facility] [address] [facility] [address] UREA NITROGEN 12 mg/dL 7-25 SODIUM 141 mmol/L 135-145 POTASSIUM 3.9 mmol/L 3.5-5.0 CHLORIDE 105 mmol/L 100-110 CARBON DIOXIDE 27 mmol/L 20-30 ANION GAP 9 mmol/L 4-16 GLUCOSE 153 mg/dL H 65-100 CREATININE 0.92 mg/dl 0.5-1.5 CALCIUM 9.5 mg/dL 8.5-10.5 eGFR 60 mL/min >60 Aug 14, 2020 10:45 [place] LIVER PROFILE Specimen Type: PLASMA AM [facility] No comment enter ed. Ordering Provider: BARRINGTON ANDERSON Report Released Date/Time: Aug 14, 2020 09:50 AM Reporting Lab: [facility] [address] [facility] [address] Performing Lab: [facility] [address] [facility] [address] PROTEIN, TOTAL 6.8 g/dL 6.0-8.5 ALBUMIN 3.8 g/dL 3.2-5.0 BILIRUBIN, TOTAL 0.7 mg/dL 0.2-1.2 ALKALINE PHOSPHATASE 67 U/L 40-150 ALT(SGPT) 32 U/L 7-52 AST(SGOT) 21 U/L 5-34 FIB-4 SCORE 0.87 INDEX <2.67 Social History: Smoking Status (Most current) and Tobacco Use (All prior to encounter date) This section includes the most current, and the historical, smoking and tobacco-related health factors from the [place] facility where the Encounter took place.Current Smoking Status This section includes the most current smoking, or tobacco-related health factor, from the [place] facility where the Encounter took place. Date/Time Current Smoking Status Comment Facility Jul 17, 2020 11:00 AM VA-TOBACCO FORMER USER [place] BENI [facility] Tobacco Use History This section includes a history of the smoking, or tobacco-related health factors, that were collected on or before the date of the Encounter. The data comes from the [place] facility where the Encounter took place. Date/Time Smoking Status/Tobacco Use Comment [facility] Jul 17, 2020 11:00 AM VA-TOBACCO QUIT 15 YRS OR MORE [place] [facility] Jul 19, 2019 10:33 AM VA-TOBACCO NEVER USED [place] Ruth [facility] Jul 20, 2018 10:33 AM QUIT TOBACCO USE > 7 YEARS AGO [place] [facility] Dec 23, 2016 10:27 AM LIFETIME NON-TOBACCO USER [place] [facility] Nov 26, 2015 11:35 AM QUIT TOBACCO USE > 7 YEARS AGO [place] [facility] May 19, 2005 08:38 AM LIFETIME NON-SMOKER [facility] Apr 23, 2004 11:39 AM LIFETIME NON-SMOKER [facility] May 15, 2003 10:08 AM LIFETIME NON-SMOKER [facility] Dec 31, 2001 04:36 PM LIFETIME NON-SMOKER [facility] Advance Directives: All historical and current Section Date Range: From patient's date of to the date document was created. This section includes ALL of a patient's completed or amended VA Advance and Rescinded Directives. The entries below indicate that a directive exists for the patient, but an actual copy is not included with this document. The data comes from all [place] facilities. Date Advance Directives Provider Source Jun 05, 2017 ADVANCE DIRECTIVE LILLIAM DEGROOT [facility] Radiology Reports: +/- 30 days [...] the Encounter. The data comes from all [place] treatment facilities. Date/Time Radiology Report Provider Source Jul 28, 2020 09:00 AM SCREENING MAMMO (BILATERAL) INCLUDES (CAD) IF PERFORMED: [facility] Erik [facility] MACARENA CLEMENTE [id number] -[birth year] 26 9 F Exm Date: JUL 28, 2020@09:00 Req Phys: BARRINGTON ANDERSON Pat Loc: [facility] NURSE PHONE (Req'g Loc Img Loc : MAMMOGRAPHY (OOS) Service : Unknown (Case 451 COMPLETE) SCREENI NG MAMMO (BILATERAL) INCLU(TROY Detailed) CPT:35835 Reason for Study: screening Clinical History: [facility] [phone] Report Status: Electronically Filed Da beni Reported: JUL 28, 2020 Report: THIS EXAMINATION WAS PERFORMED AND INTERPR ETED BY ANOTHER INSTITUTION. The report has been scanned into the [facility] electronic medical record. To view the report, select the CPRS Tools Menu and choose the Image Display (Viewer) option. Impression: THIS EXAMINATION WAS PERFORMED AND INTERPR ETED BY ANOTHER INSTITUTION. The report has been scanned into the [facility] electronic medical record. To view the report, select the CPRS Tools Menu and choose the Image Display (Viewer) option. Primary Diagnostic Code: BI-RADS CATEGORY 1 (Negative) VERIFIED BY: / *ELECTRONICALLY FILED*
[2021-07-26 06:32] VITALS: BP 125/64; PULSE 76; RESP 16; TEMP 36.5; O2SAT 99
[2021-07-26] MEDS: Tropicam./Phenyleph. (1/2.5%) 5 ML BTL OS ×3 (06:51→07:01)
--- NOTE | 2021-07-26 07:03 | W.ANESPRE ---
General Info Date of Service Date Performed: 07/26/21 Height: 6 ft Weight: 77.7 kg Body Mass Index (BMI): 23.2 Surgical Procedure: Operation Date: 07/26/21 07:40 Proposed Procedures Side Surgeon p Cataract Extraction with IOL Implant Left Ramesh Rivera MD Meds Allergies and Home Medications Allergies Allergy/AdvReac Type Severity Reaction Status Date / Time No Known Allergies Allergy Unverified 07/22/21 15:17 Home Medication Medication Instructions Recorded carboxymethylcellulose sodium 1 drp OPHTHALMIC (EYE) QID 07/22/21 [id number]-tba-RB-acetaminophen 1 cap PO QID PRN 07/22/21 famotidine 20 mg PO HS 07/22/21 glipizide 10 mg PO BID 07/22/21 metformin 500 mg PO QID 07/22/21 Current Visit Medications: Current Medications Generic Name Dose Route Start Last Admin Trade Name Freq PRN Reason Stop Dose Admin Acetaminophen 1,000 mg 07/26/21 06:00 Acetaminophen 500 Mg Tab PO Q4H PRN PRN Miscellaneous Medication 0 ml 07/26/21 06:00 Prednisolone 1%, Moxifloxacin 0.5%, Nepafenac 0.1% 5ml Btl OS DIRECTED RBEECA Miscellaneous Medication 0 ml 07/26/21 06:00 07/26/21 07:01 Tropicam./Phenyleph. (1/2.5%) 5 Ml Btl OS 1 drp DIRECTED REBECA Administration Tetracaine HCl 0 ml 07/26/21 06:00 Tetracaine 0.5% 4 Ml Btl OS DIRECTED REBECA PFSH Active Problems Active Problems: Problem Status Onset Code Nuclear sclerotic cataract of left eye H25.12 Posterior subcapsular age-related cataract of left eye H25.042 Medical History Medical History Acquired deflected nasal septum Acquired hallux limitus of both feet Atherosclerosis of artery of lower extremity Depressive disorder Diabetes mellitus without complication Dysplastic nevus of skin Gender dysphoria Hematuria Hx of renal calculi Multiple benign melanocytic nevi Nail dystrophy Seborrheic keratoses Temporomandibular dysfunction syndrome Surgical History Surgical History (Updated 07/26/21 @ 06:42 by Ulices Marroquin) History of nasal surgery S/P appendectomy Tobacco Smoking/Tobacco Use Status: Former Tobacco Use Alcohol Alcohol Intake: current Alcohol intake frequency: a few times a week Alcohol type: beer Substance Use Substance use: Never Substance use type: does not use Vital Signs and Lab Results Vital Signs Most Recent Vital Signs in EMR: Most Recent Vital Signs Temp Pulse Resp BP Pulse Ox 36.5 C 76 16 125/64 99 07/26/21 06:32 07/26/21 06:32 07/26/21 06:32 07/26/21 06:32 07/26/21 06:32 Lab Results Blood Type / Crossmatch: No Data to Display Complete Blood Count: No Data to Display Complete Metabolic Panel: No Data to Display Liver Function Panel: No Data to Display Coagulation Panel: No Data to Display Cardiac Panel: No Data to Display Arterial Blood Gas: No Data to Display Venous Blood Gas: No Data to Display Pancreas Panel: No Data to Display Thyroid Panel: No Data to Display Infectious Disease: Coronavirus (COVID-19)(PCR) Negative (Negative) 07/23/21 08:54 07/23/21 Coronavirus 2019 Source Nasal/Nares 07/23/21 08:54 07/23/21 Blood Cultures: No Data to Display Toxicology Panel: No Data to Display Imaging and Studies Imaging and Studies EKG Summary: 11/01/19 Holter SR Very Rare PVC?s Very rare PAC?s Stress Test Summary: 11/07/2019 Negative Anesthesia Assessment and Plan Anesthesia History Personal History: No History of Anesthesia Complications and Delayed Emergence Family History: No Family History of Anesthesia Complications Exercise Tolerance Exercise Tolerance: Metabolic Equivalents>4 Pertinent Negatives Pertinent Negatives: No Symptoms of GERD (Well controlled with medication), No Major Cardiovascular Symptoms or Complaints, No Major Pulmonary Symptoms or Complaints and No History of CVA/TIA Cardiac & Pulmonary Exam Cardiac Exam: Normal S1/S2 Heart Sounds Pulmonary Exam: Clear Bilateral Breath Sounds Airway Exam Known Difficult Airway: No Mallampati Class: 2 Mouth Opening: Normal (> 3cm) Thyromental Distance: Greater than 3 cm Neck Range of Motion: Full ROM Neck Circumference: Normal Teeth Condition: Removable Dentures/Plates Upper ASA Classification ASA Score: ASA 2 Emergency Case?: No NPO Status NPO Status: NPO Clears >2 hours, Solids >8 hours Anesthesia Plan Resuscitation Status: Full Code Anesthesia Technique: Spinal Anesthesia Airway Planned: Natural Airway Monitors Used: Standard Monitors
[2021-07-26 07:05] VITALS: BMI 23.2
[2021-07-26] MEDS: Povidone-Iodine Ophth 30 ML BTL (07:34)
[2021-07-26] MEDS: Lidocaine 2% Jelly 6 ML SYR (07:34)
[2021-07-26] MEDS: Tetracaine 0.5% 4 ML BTL OS (07:35)
[2021-07-26] MEDS: Lidocaine 1% Pres-Free 5 ML VIAL (07:35)
[2021-07-26] MEDS: Duovisc Viscoelastic System EACH 1 EACH (07:36)
[2021-07-26] MEDS: Balanced Salt Soln.-PLUS 500 ML BAG (07:40)
[2021-07-26] MEDS: Trypan Blue 0.06% 0.5 ML SYR (07:43)
[2021-07-26 08:00] VITALS: BP 145/80; PULSE 66; RESP 18; TEMP 36.7; O2SAT 98
--- NOTE | 2021-07-26 08:01 | W.ANESPOSTOP ---
Postoperative Evaluation Date, Time and Location Date Performed: 07/26/21 Time Performed: 08:11 Patient Location: Day Surgery Unit Vital Signs Most Recent Imported Vital Signs: Most Recent Vital Signs Temp Pulse Resp BP Pulse Ox 36.5 C 76 16 125/64 99 07/26/21 06:32 07/26/21 06:32 07/26/21 06:32 07/26/21 06:32 07/26/21 06:32 Most Recent Manually Entered Vital Signs: Adult Blood Pressure: 145/80 Heart Rate: 68 Respirations: 12 Oxygen Saturation (%): 97 Temperature (C): 36.7 C Pain Score (0-10 Scale): 0 Pain Score Most Recent Pain Score: Most Recent Pain Score Pain Level 0 07/26/21 06:32 Assessment Mental Status: Awake (Alert & Oriented to Patient Baseline) Airway and Respiratory Function: Patent airway with normal (patient baseline) respiratory exam Cardiovascular Function: Hemodynamically Stable Hydration Status: Adequately Hydrated Nausea & Vomiting: No Nausea or Vomiting Pain: Pt. Denies Any Pain Peripheral Nerve Block: Patient did not receive a nerve block
[2021-07-26 08:02] VITALS: BP 145/80; PULSE 68; RESP 12; TEMPC 36.7; O2SAT 97
--- NOTE | 2021-07-26 08:03 | W.PM.DSUDISC ---
Discharge Plan Disposition Patient Disposition: HOME Condition: Good Discharge Details Attending Provider: Ramesh Rivera Primary Care Provider: Gayle Lange Home Meds and New Rx's Prescriptions: No Action metformin 500 mg tablet 500 mg PO QID RF: 0 glipizide 10 mg Tablet 10 mg PO BID RF: 0 bkwtlxk-ock-NT-acetaminophen Capsule 1 cap PO QID PRNRF: 0 famotidine 20 mg Tablet 20 mg PO HS RF: 0 carboxymethylcellulose sodium 0.5 % Drops 1 drp ophthalmic (eye) QID RF: 0 Discharge Instructions Stand Alone Forms: Post-op Topical Cataract Discharge Orders Discharge Orders: Discharge Order (Routine); Ordered 07/26/21 Ordered By: Ramesh Rivera DS: Diagnosis Discharge Diagnosis (1) Nuclear sclerotic cataract of left eye: Status: Resolved (2) Posterior subcapsular age-related cataract of left eye: Status: Resolved
--- NOTE | 2021-07-26 08:05 | W.PM.OP ---
Date of service: 07/26/21 Time of Service: 08:05 Operative Note Operative Note DATE OF PROCEDURE: 07/26/21 PRE-OP DIAGNOSIS: Nuclear/posterior subcapsular cataract, left eye Poor red reflex secondary to cataract POST-OP DIAGNOSIS: same PROCEDURE: Cataract extraction using phacoemulsification with intraocular lens implant, left eye, using capsular staining with Vision Blue SURGEON: Ramesh Rivera ANESTHESIA TYPE: Local By Surgeon and MAC Refer to Anesthesia Record COMPLICATIONS: None Patient was transported to: same day Patient's condition: stable Implants: Leonard and Leonard / [employer] Tecnis [id number] Indications: Progressive decreased vision due to cataract, left eye, with poor red reflex Procedure Description: CATARACT SURGERY OPERATIVE REPORT PREOPERATIVE DIAGNOSIS: 1. Nuclear/posterior subcapsular cataract, left eye 2. Poor red reflex secondary to #1 POSTOPERATIVE DIAGNOSIS: Same OPERATION: 1. Cataract extraction using phacoemulsification with posterior chamber intraocular lens implant, left eye. 2. Capsular staining with Vision Blue IOL: IOL Clinical Documentation Nurse/Model: Leonard & Leonard / FELICITAS Tecnis [id number] IOL Power: + 17.0 diopters IOL Serial Number: [id number] Optic Diameter: 6.0 mm Haptic/Overall Diameter: 13.0 mm PHACO INFO: Jesse [employer] Vision System with OZil and Active Fluidics Cumulative Dispersed Energy (CDE): 7.52 seconds SURGEON: Ramesh Rivera MD, BRISA ANESTHESIA: Monitored A [facility] ([employer] [facility]), with local sub-tenon's anesthetic infiltration COMPLICATIONS: None SPECIMENS: None INDICATIONS FOR PROCEDURE: The patient is a 71-year-old with history of progressive decreased vision in the left eye. A moderate nuclear and posterior subcapsular cataract is noted. The patient desires to remain myopic with ability to read without glasses, postoperative refractive target is -2.25 to -2.50 diopters. PROCEDURE: The correct surgical eye was identified and marked as the left eye and the pupil was dilated in the preoperative area using mydriatics and cycloplegics. The dilated pupil size was 7.0 mm. The patient elected to proceed without oral sedation. The patient was brought to the operating room where cardiopulmonary monitoring was instituted and surgical time-out was performed, confirming the correct operative eye and IOL power. Topical anesthesia was administered and ophthalmic povidone-iodine 5% was instilled into the conjunctival fornices. Lidocaine gel was applied to the cornea and the benjamin-ocular area was prepped with Betadine 10% solution and draped in the usual sterile fashion for intraocular surgery, including an aperture drape. A Tegaderm transparent film dressing was cut in half and used to cover the lashes and lid margins. Care was taken to sequester the lashes and lid margins under the Tegaderm dressing. A lid speculum was placed between the lids of the operative eye and the Agustina-Hyacinth operating microscope was maneuvered into position. Kp scissors were then used to make a conjunctival buttonhole approximately 6mm posterior to the limbus in the inferonasal quadrant. Blunt dissection was carried out to expose bare sclera, and a blunt-tipped sub-tenon?s anesthesia cannula was introduced and passed posteriorly along the globe where non-preserved plain lidocaine was injected into posterior sub-Tenon?s space. A sideport knife was used to make a paracentesis port superiorly/superiortemporally. Intraocular phenylephrine/lidocaine was injected int the anterior chamber.. Air was then injected into the anterior chamber, followed by Vision Blue, which was painted over the anterior capsule and then irrigated out using BSS. The anterior chamber was filled with viscoelastic. A 2.4mm keratome knife was used to create a half-thickness groove at the limbus and then to construct a three-plane near-clear corneal tunnel extending 2.0mm into clear cornea at the 3:00 position. A flap was raised on the anterior capsule and capsulorhexis forceps were used to complete a continuous curvilinear capsulorhexis of 5.0 mm. Balanced salt solution was then used to perform cortical cleaving hydrodissection and nuclear hydrodelineation until the lens could be freely rotated within the capsular bag. The lens nucleus was then disassembled and removed within the capsular bag and iris plane using phacoemulsification. Residual cortical material was removed using the 45-degree angled silicone I/A tip with 0.3mm port. The posterior capsule was carefully polished to remove as much residual lens epithelial cells as safely possible. The capsular bag was then inflated and the anterior chamber deepened with viscoelastic. The lens implant described above was inserted into the capsular bag using the FELICITAS [place] Injector. A Kuglen hook was used to dial the IOL into position. Residual viscoelastic was then removed first from posterior to the IOL, then from the anterior chamber using the I/A handpiece. The lens implant was noted to center nicely within the capsular bag. The incisions were stromally hydrated, and the anterior chamber was reformed using BSS. Then 0.5cc of moxifloxacin 1.0mg/ml were injected into the capsular bag and anterior chamber. The incisions were checked with a Weck spear and found to be secure. Several drops of ophthalmic povidone-iodine 5% were then applied to the eye followed by two drops of Imprimis combination prednisolone/moxifloxacin/nepafenac solution. The drapes were removed and a clear plastic protective eye shield was placed over the eye. The patient was then returned to Same Day Surgery in stable condition.
== END 2021-07-26 08:22 | disposition home or self-care (01) ==
PROVIDERS: PCP Student in an Organized Health Care Education/Training Program; Visit Provider Ophthalmology
PROC: (CPT 66984; principal; 2021-07-26 07:30)
DX: H25.042 Posterior subcapsular polar age-related cataract, left eye (principal); E11.9 Type 2 diabetes mellitus without complications
CPT/HCPCS: 66984; V2632

== ENCOUNTER 2021-08-06 01:58 | Outpatient (CLI) | payer OTHER, SELFPAY ==
[2021-08-06 12:54] LABS: Source Nasal/Nares
[2021-08-06 15:32] LABS: COVID-19 PCR Negative (Negative)
== END 2021-08-06 01:59 | disposition home or self-care (01) ==
LOC: LBO 01:58
PROVIDERS: PCP Student in an Organized Health Care Education/Training Program; Visit Provider Ophthalmology
DX: Z20.822 Contact with and (suspected) exposure to COVID-19 (principal); Z01.818 Encounter for other preprocedural examination
CPT/HCPCS: 87635

== ENCOUNTER 2021-08-09 08:47 | Day surgery (SDC) | payer OTHER, SELFPAY ==
[2021-08-09 09:10] VITALS: BP 141/65; PULSE 71; RESP 16; TEMP 36.5; O2SAT 98
[2021-08-09] MEDS: Tropicam./Phenyleph. (1/2.5%) 5 ML BTL OD ×3 (09:24→09:35)
--- NOTE | 2021-08-09 09:29 | W.ANESPRE ---
General Info Date of Service Date Performed: 08/09/21 Height: 6 ft Weight: 77.9 kg Body Mass Index (BMI): 23.3 Surgical Procedure: Operation Date: 08/09/21 11:40 Proposed Procedures Side Surgeon p Cataract Extraction with IOL Implant Right Ramesh Rivera MD Meds Allergies and Home Medications Allergies Allergy/AdvReac Type Severity Reaction Status Date / Time No Known Allergies Allergy Unverified 08/09/21 09:06 Home Medication Medication Instructions Recorded bvxrcpd-jyq-MT-acetaminophen 1 cap PO QID PRN 07/22/21 famotidine 20 mg PO HS 07/22/21 glipizide 10 mg PO BID 07/22/21 metformin 500 mg PO QID 07/22/21 Current Visit Medications: Current Medications Generic Name Dose Route Start Last Admin Trade Name Freq PRN Reason Stop Dose Admin Acetaminophen 1,000 mg 08/09/21 06:00 Acetaminophen 500 Mg Tab PO Q4H PRN PRN Miscellaneous Medication 0 ml 08/09/21 06:00 Prednisolone 1%, Moxifloxacin 0.5%, Nepafenac 0.1% 5ml Btl OD DIRECTED REBECA Miscellaneous Medication 0 ml 08/09/21 06:00 08/09/21 09:24 Tropicam./Phenyleph. (1/2.5%) 5 Ml Btl OD 1 drp DIRECTED REBECA Administration Tetracaine HCl 0 ml 08/09/21 06:00 Tetracaine 0.5% 4 Ml Btl OD DIRECTED REBECA PFSH Active Problems Active Problems: Problem Status Onset Code Posterior subcapsular age-related cataract, right eye H25.041 Nuclear sclerotic cataract of right eye H25.11 Nuclear sclerotic cataract of left eye H25.12 Posterior subcapsular age-related cataract of left eye H25.042 Medical History Medical History Acquired deflected nasal septum Acquired hallux limitus of both feet Atherosclerosis of artery of lower extremity Depressive disorder Diabetes mellitus without complication Dysplastic nevus of skin Gender dysphoria Hematuria Hx of renal calculi Multiple benign melanocytic nevi Nail dystrophy Seborrheic keratoses Temporomandibular dysfunction syndrome Surgical History Surgical History History of nasal surgery S/P appendectomy Tobacco Smoking/Tobacco Use Status: Former Tobacco Use Alcohol Alcohol Intake: current Alcohol intake frequency: a few times a week Alcohol type: beer Substance Use Substance use: Never Substance use type: does not use Vital Signs and Lab Results Vital Signs Most Recent Vital Signs in EMR: Most Recent Vital Signs Temp Pulse Resp BP Pulse Ox 36.5 C 71 16 141/65 H 98 08/09/21 09:10 08/09/21 09:10 08/09/21 09:10 08/09/21 09:10 08/09/21 09:10 Lab Results Blood Type / Crossmatch: No Data to Display Complete Blood Count: No Data to Display Complete Metabolic Panel: No Data to Display Liver Function Panel: No Data to Display Coagulation Panel: No Data to Display Cardiac Panel: No Data to Display Arterial Blood Gas: No Data to Display Venous Blood Gas: No Data to Display Pancreas Panel: No Data to Display Thyroid Panel: No Data to Display Infectious Disease: Coronavirus (COVID-19)(PCR) Negative (Negative) 08/06/21 10:14 08/06/21 Coronavirus 2019 Source Nasal/Nares 08/06/21 10:14 08/06/21 Blood Cultures: No Data to Display Toxicology Panel: No Data to Display Imaging and Studies Imaging and Studies EKG Summary: 11/01/19 Holter SR Very Rare PVC?s Very rare PAC?s Stress Test Summary: 11/07/2019 Negative Anesthesia Assessment and Plan Anesthesia History Personal History: No History of Anesthesia Complications and Delayed Emergence Family History: No Family History of Anesthesia Complications Exercise Tolerance Exercise Tolerance: Metabolic Equivalents>4 Pertinent Negatives Pertinent Negatives: No Symptoms of GERD (Well controlled with medications), No Major Cardiovascular Symptoms or Complaints, No Major Pulmonary Symptoms or Complaints and No History of CVA/TIA Cardiac & Pulmonary Exam Cardiac Exam: Normal S1/S2 Heart Sounds Pulmonary Exam: Clear Bilateral Breath Sounds Airway Exam Known Difficult Airway: No Mallampati Class: 2 Mouth Opening: Normal (> 3cm) Thyromental Distance: Greater than 3 cm Neck Range of Motion: Full ROM Neck Circumference: Normal Teeth Condition: Removable Dentures/Plates Upper ASA Classification ASA Score: ASA 2 Emergency Case?: No NPO Status NPO Status: NPO Clears >2 hours, Solids >8 hours Anesthesia Plan Resuscitation Status: Full Code Anesthesia Technique: MAC Anesthesia Airway Planned: Natural Airway Monitors Used: Standard Monitors
[2021-08-09 09:31] VITALS: BMI 23.3
[2021-08-09] MEDS: Tetracaine 0.5% 4 ML BTL OD (10:30)
[2021-08-09] MEDS: Balanced Salt Soln.-PLUS 500 ML BAG (10:30)
[2021-08-09] MEDS: Lidocaine 1% Pres-Free 5 ML VIAL (10:31)
[2021-08-09] MEDS: Duovisc Viscoelastic System EACH 1 EACH (10:31)
[2021-08-09] MEDS: Lidocaine 2% Jelly 6 ML SYR (10:32)
[2021-08-09] MEDS: Povidone-Iodine Ophth 30 ML BTL (10:33)
[2021-08-09 10:47] VITALS: BP 149/62; PULSE 74; RESP 16; TEMP 36.2; O2SAT 99
--- NOTE | 2021-08-09 10:47 | W.PM.DSUDISC ---
Discharge Plan Disposition Patient Disposition: HOME Condition: Good Discharge Details Attending Provider: Ramesh Rivera Primary Care Provider: Gayle Lange Home Meds and New Rx's Prescriptions: No Action metformin 500 mg tablet 500 mg PO QID RF: 0 glipizide 10 mg Tablet 10 mg PO BID RF: 0 btpbcnt-ksz-HZ-acetaminophen Capsule 1 cap PO QID PRNRF: 0 famotidine 20 mg Tablet 20 mg PO HS RF: 0 Discharge Instructions Stand Alone Forms: Post-op Block Cataract, Post-op Topical Cataract, Press Ganey (DSU) Discharge Orders Discharge Orders: Discharge Order (Routine); Ordered 08/09/21 Ordered By: Ramesh Rivera DS: Diagnosis Discharge Diagnosis (1) Posterior subcapsular age-related cataract, right eye: Status: Resolved (2) Nuclear sclerotic cataract of right eye: Status: Resolved
--- NOTE | 2021-08-09 10:47 | W.ANESPOSTOP ---
Postoperative Evaluation Date, Time and Location Date Performed: 08/09/21 Time Performed: 10:48 Patient Location: Day Surgery Unit Vital Signs Most Recent Imported Vital Signs: Most Recent Vital Signs Temp Pulse Resp BP Pulse Ox 36.5 C 71 16 141/65 H 98 08/09/21 09:10 08/09/21 09:10 08/09/21 09:10 08/09/21 09:10 08/09/21 09:10 Most Recent Manually Entered Vital Signs: Adult Blood Pressure: 149/62 Heart Rate: 75 Respirations: 12 Oxygen Saturation (%): 98 Temperature (C): 36.3 C Pain Score (0-10 Scale): 0 Pain Score Most Recent Pain Score: Most Recent Pain Score Pain Level 0 08/09/21 09:10 Assessment Mental Status: Awake (Alert & Oriented to Patient Baseline) Airway and Respiratory Function: Patent airway with normal (patient baseline) respiratory exam Cardiovascular Function: Hemodynamically Stable Hydration Status: Adequately Hydrated Nausea & Vomiting: No Nausea or Vomiting Pain: Pt. Denies Any Pain Peripheral Nerve Block: Patient did not receive a nerve block
[2021-08-09 10:48] VITALS: BP 149/62; PULSE 75; RESP 12; TEMPC 36.3; O2SAT 98
--- NOTE | 2021-08-09 10:48 | ROE_ITS ---
Date of service: 08/09/21 Time of Service: 10:48 Operative Note Operative Note DATE OF PROCEDURE: 08/09/21 PRE-OP DIAGNOSIS: Nuclear/posterior subcapsular cataract, right eye POST-OP DIAGNOSIS: same PROCEDURE: Cataract extraction using phacoemulsification with intraocular lens implant, right eye SURGEON: Ramesh Rivera ANESTHESIA TYPE: Local By Surgeon and MAC Refer to Anesthesia Record ESTIMATED BLOOD LOSS: 0 PATHOLOGY: none sent COMPLICATIONS: None Patient was transported to: same day Patient's condition: stable Implants: Leonard & Leonard/FELICITAS Tecnis [id number] Indications: Progressive visual loss due to cataract, right eye Procedure Description: CATARACT SURGERY OPERATIVE REPORT PREOPERATIVE DIAGNOSIS: 1. Nuclear/posterior subcapsular cataract, right eye POSTOPERATIVE DIAGNOSIS: Same OPERATION: 1. Cataract extraction using phacoemulsification with posterior chamber intraocular lens implant, right eye. IOL: IOL Computer Systems Administrator/Model: Leonard & Leonard / FELICITAS Tecnis [id number] IOL Power: + 17.5 diopters IOL Serial Number: [] Optic Diameter: 6.0mm Haptic/Overall Diameter: 13.0mm PHACO INFO: Jesse [employer] Vision System with OZil and Active Fluidics Cumulative Dispersed Energy (CDE): 9.67 seconds SURGEON: Ramesh Rivera MD, BRISA ANESTHESIA: Monitored Anesthesia Care (MAC), with local sub-tenon's anesthetic infiltration COMPLICATIONS: None SPECIMENS: None INDICATIONS FOR PROCEDURE: The patient is a 71-year-old lady with history of diminished visual acuity in both eyes secondary to the development of symptomatic bilateral cataracts. She has already undergone cataract surgery in the left eye and is doing well postoperatively. Postoperative refractive target is -2.25 to -2.50 diopters, to maintain good reading vision without glasses. She now presents for cataract surgery in the right eye. PROCEDURE: The correct surgical eye was identified and marked as the right eye and the pupil was dilated in the preoperative area using mydriatics and cycloplegics. The dilated pupil size was 7.0 mm. Elected to proceed without oral sedation.. The patient was brought to the operating room where cardiopulmonary monitoring was instituted and surgical time-out was performed, confirming the correct operative eye and IOL power. Topical anesthesia was administered and ophthalmic povidone-iodine 5% was instilled into the conjunctival fornices. Lidocaine gel was applied to the cornea and the benjamin-ocular area was prepped with Betadine 10% solution and draped in the usual sterile fashion for intraocular surgery, including an aperture drape. A Tegaderm transparent film dressing was cut in half and used to cover the lashes and lid margins. Care was taken to sequester the lashes and lid margins under the Tegaderm dressing. A lid speculum was placed between the lids of the operative eye and the Agustina-Hyacinth operating microscope was maneuvered into position. Kp scissors were then used to make a conjunctival buttonhole approximately 6mm posterior to the limbus in the inferonasal quadrant. Blunt dissection was carried out to expose bare sclera, and a blunt-tipped sub-tenon?s anesthesia cannula was introduced and passed posteriorly along the globe where non- preserved plain lidocaine was injected into posterior sub-Tenon?s space. A sideport knife was used to make a paracentesis port inferotemporally. Intraocular phenylephrine/lidocaine was injected into the anterior chamber. The anterior chamber was filled with viscoelastic. A 2.4mm keratome knife was used to create a half-thickness groove at the limbus and then to construct a three- plane near-clear corneal tunnel extending 2.0mm into clear cornea superiortemporally. A flap was raised on the anterior capsule and capsulorhexis forceps were used to complete a continuous curvilinear capsulorhexis of 5.5 mm. Balanced salt solution was then used to perform cortical cleaving hydrodissection and nuclear hydrodelineation until the lens could be freely rotated within the capsular bag. The lens nucleus was then disassembled and removed within the capsular bag and iris plane using phacoemulsification. Residual cortical material was removed using the I/A handpiece. The posterior capsule was carefully polished to remove as much residual lens epithelial cells as safely possible. The capsular bag was then inflated and the anterior chamber deepened with viscoelastic. The lens implant described above was inserted into the capsular bag using the FELICITAS [place] Injector. A Kuglen hook was used to dial the IOL into position. Residual viscoelastic was then removed first from posterior to the IOL, then from the anterior chamber using the I/A handpiece. The lens implant was noted to center nicely within the capsular bag. The incisions were stromally hydrated, and the anterior chamber was reformed using BSS. Then 0.5cc of moxifloxacin 1.0mg/ml were injected into the capsular bag and anterior chamber. The incisions were checked with a Weck spear and found to be secure. Several drops of ophthalmic povidone-iodine 5% were then applied to the eye followed by two drops of Imprimis combination prednisolone/moxifloxacin/nepafenac solution. The drapes were removed and a clear plastic protective eye shield was placed over the eye. The patient was then returned to Same Day Surgery in stable condition.
== END 2021-08-09 11:05 | disposition home or self-care (01) ==
PROVIDERS: PCP Student in an Organized Health Care Education/Training Program; Visit Provider Ophthalmology
PROC: (CPT 66984; principal; 2021-08-09 11:30)
DX: H25.041 Posterior subcapsular polar age-related cataract, right eye (principal); I11.9 Hypertensive heart disease without heart failure
CPT/HCPCS: 66984; V2632

== ENCOUNTER 2023-02-17 00:57 | Outpatient (CLI) | payer OTHER, SELFPAY ==
--- NOTE | 2023-02-17 08:33 | DI.MAMMO_ITS ---
Exam(s) MAMMO SCREENING EXAM: MAMMO SCREENING CLINICAL HISTORY: SCREENING MAMMO FOR BREAST CANCER Z12.31 TECHNIQUE: Mammograms were interpreted according to the usual protocol including computer analysis w [employer] CAD system, tomosynthesis and C-view imaging. COMPARISON: 2008 through 2021 from [facility]. FINDINGS: The breasts are composed of heterogeneously dense fibroglandular densities, Breast Density category C . No suspicious masses or suspicious microcalcifications are seen. No skin thickening or abnormal axillary lymph nodes are seen. There has been no significant change from prior exams. IMPRESSION: BI-RADS Category 1, Negative mammogram. Yearly screening mammography is recommended. Breast Density Category C, heterogeneously Dense. The mammogram demonstrates the patient's breast tissue is dense. Dense breast tissue is very common a nd is not abnormal but dense breast tissue can make it harder to find cancer on a mammogram. Also, de nse breast tissue may increase breast cancer risk. This information about the result of the mammogram report was provided to the patient to raise their awareness. Use this report when you speak with the patient about their risks for breast cancer, which includes their family history. At that time, you may recommend additional screening tests (Ultrasound or MRI) as they might be useful based on their r isk. A negative radiographic report should not delay biopsy if a dominant or clinically suspicious mass is present. Up to ten percent of cancers are not identified on mammography. A negative report may reinforce clinical impression. Adenosis and dense breasts may obscure an underlying neoplasm. False positive reports average 6 to 10%.
== END 2023-02-17 01:17 ==
PROVIDERS: PCP Student in an Organized Health Care Education/Training Program; Visit Provider Family Medicine
DX: Z12.31 Encounter for screening mammogram for malignant neoplasm of breast (principal)
CPT/HCPCS: 77063; 77067

== ENCOUNTER 2023-12-03 21:54 | Emergency (ER) | payer OTHER, SELFPAY ==
[2023-12-03 21:56] VITALS: BP 145/77; PULSE 110; RESP 16; TEMP 36.7; O2SAT 97
--- NOTE | 2023-12-03 22:11 | ED.GENADUL_ITS ---
HPI General Date/Time Provider Initiated Documentation: 12/03/23 22:04 . HPI Narrative: 73-year-old female presents with atraumatic neck discomfort bilateral paraspinal in nature woke up 2 days ago despite, cannot move her neck. Denies headache nausea vomiting fevers chills weakness numbness trouble speaking or trouble walking. Related Data Home Medications Medication Instructions Recorded Confirmed pnposti-kbx-CI-acetaminophen 1 cap PO QID PRN 07/22/21 12/03/23 capsule famotidine 20 mg tablet 20 mg PO HS 07/22/21 12/03/23 glipizide 10 mg tablet 10 mg PO BID 07/22/21 12/03/23 metformin 500 mg tablet 500 mg PO QID 07/22/21 12/03/23 Allergies Allergy/AdvReac Type Severity Reaction Status Date / Time No Known Allergies Allergy Unverified 12/03/23 22:00 General Stated Complaint: Nk/Back Pain CATE: 4 Review of Systems Narrative: Review of Systems Constitutional: negative Eyes: negative ENT: negative Cardiovascular: negative Respiratory: negative Gastrointestinal: negative : negative Musculoskeletal: Neck discomfort Skin: negative Neurologic: negative Psych: negative Exam Narrative Exam Narrative: Physical Examination General: alert, awake, cooperative, resting comfortably, no acute distress HEENT: normocephalic, atraumatic; PERRL, EOM intact, conjunctiva normal; no nasal discharge; moist mucous membranes, oral and pharyngeal mucosa normal, tolerating secretions Neck: supple, trachea midline; holding head in anterior facing position, unable to rotate neck laterally in either direction, able to partially flex chin to chest Chest: normal to inspection Respiratory: normal respiratory effort, speaking in full sentences Back: No midline spinal tenderness step-off crepitus or deformity Skin: no lesions, rashes or trauma appreciated Neuro: AAOx3, normal speech, moving all extremities; cranial nerves II through XII intact 5/5 strength upper lower extremities, no ataxia Extremities: No signs of trauma Psych: Appropriate mood and affect Course Vital Signs Vital signs: Vital Signs Temperature 36.7 C 12/03/23 21:56 Pulse 110 H 12/03/23 21:56 Respiratory Rate 16 12/03/23 21:56 Blood Pressure 145/77 H 12/03/23 21:56 Pulse Oximetry 97 12/03/23 21:56 Temperature 36.7 C 12/03/23 21:56 Temperature Source Skin 12/03/23 21:56 Pulse 110 H 12/03/23 21:56 Respiratory Rate 16 12/03/23 21:56 Respiratory Effort Normal, Non-Labored 12/03/23 22:00 Blood Pressure 145/77 H 12/03/23 21:56 Blood Pressure Position Sitting 12/03/23 21:56 Pulse Oximetry 97 12/03/23 21:56 Oxygen Delivery Method Room Air 12/03/23 21:56 Oxygen Flow Rate 0 12/03/23 21:56 Pain Level 10 12/03/23 22:04 Medical Decision Making 33-year-old female presents with signs and symptoms consistent with torticollis, 2 days of inability to move neck woke up bilaterally, atraumatic. Afebrile nontoxic nonmeningeal, unable to move head laterally in either direction, able to partially flex chin to chest, no examination intact. No external signs of trauma. Trial of analgesia anti-inflammatory muscle relaxant and topical Lidoderm, close reassessment of symptoms if no improvement consider imaging to assess cervical spine, spinal cord, vertebral system low suspicion for arterial dissection or occlusion CVA intracerebral hemorrhage meningitis or encephalitis given history and physical. 23: 24 minimal improvement after initial set of medication, will trial benzodiazepine and diphenhydramine. Close reassessment. 00: 21 patient feeling much better after Benadryl and Ativan. Mobility is improving. Patient does not feel sleepy and is comfortable driving home. Quality:SDOH Health Related Social Needs: No Data to Display PFSH All Active Problems (Updated 12/04/23 @ 00:22 by Ramesh Echevarria MD) Acute torticollis (Acute) Medical History (Updated 12/04/23 @ 00:22 by Ramesh Echevarria MD) Hx of renal calculi Depressive disorder Temporomandibular dysfunction syndrome Diabetes mellitus without complication Gender dysphoria Hematuria Seborrheic keratoses Dysplastic nevus of skin Multiple benign melanocytic nevi Acquired deflected nasal septum Acquired hallux limitus of both feet Atherosclerosis of artery of lower extremity Nail dystrophy Surgical History (Updated 08/09/21 @ 10:48 by Ramesh Rivera MD) S/P appendectomy History of nasal surgery Social History Smoking/Tobacco Use Status: Former Tobacco Use Quit Date: 11/06/68 Smoking risk assessment performed?: Yes Alcohol Intake: current Alcohol Intake frequency: a few times a week Alcohol type: beer Drug use: Never Substance use type: does not use Do you feel safe at home: Yes Do you feel safe in your relationship?: Yes Discharge Plan Disposition Patient Disposition: Home Condition: Improving Discharge Details Chief Complaint: Nk/Back Pain Clinical Impression: Acute torticollis Primary Care Provider: Gayle Lange ED Provider: Ramesh Echevarria Home Meds and New Rx's Prescriptions: No Action metformin 500 mg tablet 500 mg PO QID glipizide 10 mg Tablet 10 mg PO BID jbnsbre-isw-DE-acetaminophen Capsule 1 cap PO QID PRN famotidine 20 mg Tablet 20 mg PO HS Discharge Instructions Instructions: Spasmodic Torticollis (ED) Additional Instructions: Please continue with ibuprofen and/or acetaminophen and heat and/or ice as needed at home. Please return to the emergency department for any worsening symptoms
[2023-12-03] MEDS: Acetaminophen 325 MG TAB 650 MG PO (22:34)
[2023-12-03] MEDS: Lidocaine 5% Patch 1 PATCH TP (22:34)
[2023-12-03] MEDS: Cyclobenzaprine 10 MG TAB PO (22:34)
[2023-12-03] MEDS: Ketorolac 15 MG/ML VIAL IM (22:36)
[2023-12-03] MEDS: Dexamethasone 10 MG/ML VIAL PO (22:36)
[2023-12-03] MEDS: diphenhydrAMINE 25 MG CAP PO (23:30)
[2023-12-03] MEDS: LORazepam 0.5 MG TAB PO (23:30)
[2023-12-03 23:33] VITALS: BP 140/52; PULSE 76; RESP 14; O2SAT 94
[2023-12-04 00:30] VITALS: BP 138/60; PULSE 72; RESP 14; O2SAT 95
[2023-12-04] MEDS: LORazepam 0.5 MG TAB PO (00:30)
== END 2023-12-04 00:31 | disposition home or self-care (01) ==
PROVIDERS: Emergency Provider Emergency Medicine; PCP Student in an Organized Health Care Education/Training Program
DX: M43.6 Torticollis (principal)
CPT/HCPCS: 36415; 96372; 99284; J1100; J1885

== ENCOUNTER 2024-07-26 16:17 | Outpatient (REF) | payer OTHER, SELFPAY ==
--- NOTE | 2024-07-26 10:20 | SKI_PTH ---
PATIENT: Krystal Pacheco LOC: [facility] U#:[id number] AGE/SX: 74/M ROOM: RE07/26/[address]: Harlan Honeycutt DO : 1950 BED: DIS: 07/26/2024 SPEC #: [id number] RECD: 07/26/24 18:29 STATUS: [facility]ILFRID REQ #: [id number] TAVO: 07/26/24 10:[address]: Harlan Honeycutt DEPT: Surgical Specimen RECD BY: Katerin Coronel ENTERED: 07/26/24 18:30 SP TYPE: SKI OTHR DR: Gayle Lange Tissues: 1 - SKIN BIOPSY(SHAVE/PUNCH) Procedures: SKIN LEVEL 4 Comments: [id number]
== END 2024-07-26 16:18 | disposition home or self-care (01) ==
LOC: LBN 16:17
PROVIDERS: PCP Student in an Organized Health Care Education/Training Program; Visit Provider Otolaryngology Otolaryngology/Facial Plastic Surgery
DX: D49.2 Neoplasm of unspecified behavior of bone, soft tissue, and skin (principal); Z85.820 Personal history of malignant melanoma of skin; L82.1 Other seborrheic keratosis
CPT/HCPCS: 88305

== ENCOUNTER 2024-08-09 00:30 | Outpatient (CLI) | payer OTHER, SELFPAY ==
--- NOTE | 2024-08-09 | DI.MAMMO_ITS ---
Exam(s) MAMMO SCREENING EXAM: MAMMO SCREENING CLINICAL HISTORY: SCREENING, Z12.31 [id number] TECHNIQUE: Mammograms were interpreted according to the usual protocol including computer analysis w [employer] ([employer]) CAD system, tomosynthesis and C-view imaging. COMPARISON: 2015 through 2022 FINDINGS: The breasts are composed of heterogeneously dense fibroglandular densities, Breast Density category C . No suspicious masses or suspicious microcalcifications are seen. No skin thickening or abnormal axillary lymph nodes are seen. There has been no significant change from prior exams. IMPRESSION: BI-RADS Category 1, Negative mammogram. Yearly screening mammography is recommended. Breast Density Category C, heterogeneously Dense. The mammogram demonstrates the patient's breast tissue is dense. Dense breast tissue is very common a nd is not abnormal but dense breast tissue can make it harder to find cancer on a mammogram. Also, de nse breast tissue may increase breast cancer risk. This information about the result of the mammogram report was provided to the patient to raise their awareness. Use this report when you speak with the patient about their risks for breast cancer, which includes their family history. At that time, you may recommend additional screening tests (Ultrasound or MRI) as they might be useful based on their r isk. A negative radiographic report should not delay biopsy if a dominant or clinically suspicious mass is present. Up to ten percent of cancers are not identified on mammography. A negative report may reinforce clinical impression. Adenosis and dense breasts may obscure an underlying neoplasm. False positive reports average 6 to 10%.
== END 2024-08-09 00:50 ==
PROVIDERS: PCP Student in an Organized Health Care Education/Training Program; Visit Provider Student in an Organized Health Care Education/Training Program
DX: Z12.31 Encounter for screening mammogram for malignant neoplasm of breast (principal)
CPT/HCPCS: 77063; 77067

== ENCOUNTER 2025-01-07 14:36 | Outpatient (REF) | payer OTHER, SELFPAY ==
[2025-01-07 15:52] LABS: Abs Immature Grans 0.02 10^3/uL (0.0-0.06); Absolute Basophil Count 0.06 10^3/uL (0.0-0.2); Absolute Eosinophil Count 0.16 10^3/uL (0.0-0.7); Absolute Lymphocyte Count 1.87 10^3/uL (1.2-3.4); Absolute Monocyte Count 0.58 10^3/uL (0.1-0.8); Absolute Neutrophil Count 4.28 10^3/uL (1.2-6.7); Basophils % 0.9 %; Eosinophils % 2.3 %; HGB 14.7 g/dL (13.5-17.5); Immature Grans % 0.3 %; Lymphocytes % 26.8 %; MCHC 33.4 % (32.0-36.0); MCV 90 fL (80-95); MPV 11.3 fL (8.0-11.0); Monocytes % 8.3 %; Neutrophils % 61.4 %; Platelet Count 276 10^3/uL (130-400); RDW 12.5 % (11.8-14.1); WBC 6.97 10^3/uL (4.4-10.8)
[2025-01-07 16:47] LABS: ALT 27 U/L (16-63); AST 14 U/L (15-37); Albumin 3.8 g/dL (3.4-5.0); Alkaline Phosphatase 73 U/L (46-116); BUN 14 mg/dL (7-18); Bilirubin, Total 0.28 mg/dL (0.2-1.0); CREATININE 1.2 mg/dL (0.70-1.30); Calcium 9.1 mg/dL (8.5-10.1); Chloride 104 mmol/L (98-107); Estimated GFR 63.07 (mL/min/1.73m2); Glucose 352 mg/dL (74-106); Magnesium 1.6 mg/dL (1.8-2.4); Potassium 4.5 mmol/L (3.5-5.1); Sodium 142 mmol/L (136-145); Total Protein 6.8 g/dL (6.4-8.2); Vitamin B12 257 pg/mL (193-986)
== END 2025-01-07 14:37 | disposition home or self-care (01) ==
LOC: NCHCN 14:36
PROVIDERS: PCP Student in an Organized Health Care Education/Training Program; Visit Provider Family Medicine
DX: E11.9 Type 2 diabetes mellitus without complications (principal); R45.84 Anhedonia
CPT/HCPCS: 80053; 82607; 83735; 85025

== ENCOUNTER 2025-03-06 22:20 | Outpatient (REF) | payer OTHER, SELFPAY ==
[2025-03-06 14:59] LABS: COMMENT (LAB VIEW ONLY) 71.78 mg/dL; Microalb ug/mg Crea 11.7 ug/mg Cr
== END 2025-03-06 22:21 | disposition home or self-care (01) ==
LOC: NCHCN 22:20
PROVIDERS: PCP Student in an Organized Health Care Education/Training Program; Visit Provider Family Medicine
DX: E11.9 Type 2 diabetes mellitus without complications (principal)
CPT/HCPCS: 82043; 82570

== ENCOUNTER 2025-07-10 19:08 | Emergency (ER) | payer OTHER, SELFPAY ==
[2025-07-10 19:09] VITALS: BP 172/82; PULSE 79; RESP 18; TEMP 36.2; O2SAT 96
[2025-07-10] MEDS: Tetanus & Diphtheria Tox,ADULT 0.5 ML VIAL IM (20:55)
[2025-07-10] MEDS: Amoxicillin 875/Clav. 125 TAB PO (20:56)
--- NOTE | 2025-07-10 21:18 | DI.RAD_ITS ---
Exam(s) XR HAND LT COMPLETE XR WRIST LT COMPLETE EXAM: XR WRIST LT COMPLETE CLINICAL HISTORY: dog bite. TECHNIQUE: 2D digital imaging was performed. Three views of the wrist and hand. COMPARISON: CR,XR XR HAND LT COMPLETE from 07/10/2025 FINDINGS: BONES: No acute fracture is present. No bony destructive lesion is seen. JOINTS: The carpal bones are normally aligned. Mild degenerative changes of the interphalangeal joints and 1st carpal metacarpal joint. SOFT TISSUE: Swelling and a small amount of soft tissue air adjacent to the distal radius. No radiopaque foreign body. IMPRESSION: Soft tissue air. No evidence of fracture or foreign body. The preliminary [facility] report was reviewed. DATA REPOSITORY: RADIATION DOSE DELIVERED:
--- NOTE | 2025-07-10 21:18 | DI.RAD_ITS ---
Exam(s) XR HAND RT COMPLETE EXAM: XR HAND RT COMPLETE CLINICAL HISTORY: dog bite. TECHNIQUE: 2D digital imaging was performed. Three views. COMPARISON: No exams were available for comparison FINDINGS: BONES: No acute fracture is present. Mild deformity of the 5th metacarpal consistent with an old fracture. No bony destructive lesion is seen. JOINTS: No dislocation present. There are degenerative changes of the interphalangeal joints of the fingers. SOFT TISSUE: Normal. IMPRESSION: No acute abnormality. The preliminary [facility] report was reviewed. DATA REPOSITORY: RADIATION DOSE DELIVERED:
--- NOTE | 2025-07-10 21:40 | W.ED.GENAD ---
Discharge Plan Disposition Patient Disposition: Home Condition: Good Discharge Details Clinical Impression: Dog bite Primary Care Provider: Gayle Lange ED Provider: Lian Garsia Home Meds and New Rx's Prescriptions: New amoxicillin-pot clavulanate 875-125 mg tablet 1 tab PO BID 5 Days Qty: 10 0RF Continued acetaminophen-codeine 300-30 mg tablet 1 tab PO DAILY PRN Discontinued azithromycin 250 mg tablet See Rx Instructions PO .COMPLEX Rx Instructions: For 250 mg dose pack: take 500 mg today (day 1), then 250 mg thereafter cholecalciferol (vitamin D3) 25 mcg (1,000 unit) capsule 25 mcg PO DAILY codeine-guaifenesin 10-100 mg/5 mL liquid 5 - 10 ml PO Q4H PRN Rx Instructions: for cough. Max 60mL fluconazole 150 mg tablet 150 mg PO DAILY Jardiance 25 mg tablet 25 mg PO DAILY lidocaine 5 % adhesive patch,medicated 1 patch topical DAILY Rx Instructions: leave on most painful area for up to 12 hrs No Action metformin 1,000 mg tablet 1,000 mg PO BID methocarbamol 500 mg tablet 1,000 mg PO TID PRN Rx Instructions: for up to 5 days for muscle spasms metformin 500 mg tablet 500 mg PO QID glipizide 10 mg Tablet 10 mg PO BID famotidine 20 mg Tablet 20 mg PO HS Discharge Instructions Instructions: Animal Bites ED Additional Instructions: Antibiotic twice a day for the next 5 days. If your XR shows any broken bones or foreign bodies we will call you on the phone tonight. If they are normal you will not receive a call. Call your primary care doctor in the morning to schedule an appointment to followup on your visit here. At that visit please discuss your blood pressure which is high here today. Return to the emergency department for new or worsening symptoms such as fever, thick green or white discharge from your cuts, redness, increasing pain, or if you have any other concerns. HPI General Mode of arrival: ambulatory. Date/Time Provider Initiated Documentation: 07/10/25 19:14. Limitations to Documentation: no limitations. Information obtained by: patient. HPI Narrative: 75yo right handed M with hx DM presenting with dog bites. Was holding his son's dog by the collar when the dog pulled away, got 'choked', and then twisted around and bit him multiple times on the hands/wrists. Dog is fully vaccinated including for rabies. Some numbness to the distal phalanx of digits 2-4 on his right hand where the collar twisted around them; otherwise no numbness, tingling, or weakness. He is otherwise in his usual state of health. Related Data Home Medications ?Medication ?Instructions ?Recorded ?Confirmed famotidine 20 mg tablet 20 mg PO HS 07/22/21 07/10/25 glipizide 10 mg tablet 10 mg PO BID 07/22/21 07/10/25 metformin 500 mg tablet 500 mg PO QID 07/22/21 07/10/25 acetaminophen 300 mg-codeine 30 mg 1 tab PO DAILY PRN 05/23/24 07/10/25 tablet metformin 1,000 mg tablet 1,000 mg PO BID 05/23/24 07/10/25 methocarbamol 500 mg tablet 1,000 mg PO TID PRN 05/23/24 07/10/25 amoxicillin 875 mg-potassium 1 tab PO BID 5 days #10 tabs 07/10/25 clavulanate 125 mg tablet Previous Rx's ?Medication ?Instructions ?Recorded amoxicillin 875 mg-potassium 1 tab PO BID 5 days #10 tabs 07/10/25 clavulanate 125 mg tablet Allergies Allergy/AdvReac Type Severity Reaction Status Date / Time No Known Allergies Allergy Unverified 07/10/25 19:14 General Stated Complaint: Laceration CATE: 3 Review of Systems Narrative: see HPI Exam Narrative Exam Narrative: General: Alert, well appearing, well nourished, in no acute distress. Head: Normocephalic, atraumatic Neck: Trachea midline, ?Neck supple. Cardiac: ?Well perfused Resp: Speaking in full sentences Abd: ?Non-distended Extremities: ?No deformities.? Right UE: multiple shallow punctures to hand and distal forearm, hemostatic. Left UE: multiple shallow punctures to hand and wrist, hemostatic. RUE with subjectively diminished sensation to light touch distal phalanx 2-4 compared to left, otherwise sensation intact and symmetric throughout BLE. Brisk capillary refill all digits. 2+ radial and ulnar pulses bilaterally. Full strength bilaterally throughout hand and wrists. Course Vital Signs Vital signs: Vital Signs Temperature 36.2 C L 07/10/25 19:09 Pulse 79 07/10/25 19:09 Respiratory Rate 18 07/10/25 19:09 Blood Pressure 172/82 H 07/10/25 19:09 Pulse Oximetry 96 07/10/25 19:09 Temperature 36.2 C L 07/10/25 19:09 Temperature Source Oral 07/10/25 19:09 Pulse 79 07/10/25 19:09 Respiratory Rate 18 07/10/25 19:09 Blood Pressure 172/82 H 07/10/25 19:09 Pulse Oximetry 96 07/10/25 19:09 Pain Level 2 07/10/25 19:09 Procedure Laceration Laceration 1: Date of Procedure: 07/10/25 Patient Consented: Verbally Site: upper extremity Side (If applicable): left Description: linear Pre-repair:: wound explored and irrigated extensively Skin layer closed with: other (steristrips) Laceration 2: Date of Procedure: 07/10/25 Site: upper extremity Side (If applicable): left Description: linear Depth: simple, single layer Pre-repair:: wound explored and irrigated extensively Skin layer closed with: other (steri strips) Laceration 3: Date of Procedure: 07/10/25 Provider that performed the procedure: Lian Garsia Patient Consented: Verbally Site: upper extremity Side (If applicable): right Description: linear Depth: simple, single layer Pre-repair:: wound explored and irrigated extensively Skin layer closed with: other (steri strips) Medical Decision Making 75yo right handed M with hx DM presenting with dog bites. Was holding his son's dog by the collar when the dog pulled away, got 'choked', and then twisted around and bit him multiple times on the hands/wrists. Dog is fully vaccinated including for rabies, no indication for rabies IG/vaccination. Health officer notified of animal bite. . Some numbness to the distal phalanx of digits 2-4 on his right hand where the collar twisted around them; otherwise no numbness, tingling, or weakness. Hypertensive on arrival, vital signs otherwise reassuring. Multiple shallow punctures bilateral hands/wrists/distal forearm, all irrigated extensively. Full strength throughout, brick capillary refill, good pulses. Subjectively diminished sensation to light touch to distal phalanx of all digits not consistent with neurovascular injury from bite; pt attributes to collar wrapping around this area. This numbness is gradually improving. No indication for CT imaging or emergent hand consult Discussed closing 3 of the less approximated wounds with suture; pt preferred steri strips which is not unreasonable. Given tetanus booster and started on 5 day course of augementin. Plain films of affected areas independently reviewed; no displaced fractures or foreign bodies on my view; radiology reads with no acute abnormalities. Advised him to follow up closely with his primary care doctor regarding his mild numbness as well as his BP which is high here today. Discharged home; discharge instructions and return precautions were reviewed with patient who verbalized understanding. All questions were answered and he is in full agremeent with the plan. PFSH All Active Problems (Updated 07/10/25 @ 21:41 by Lian Garsia MD) Dog bite (Acute) Medical History (Updated 07/10/25 @ 21:41 by Lian Garsia MD) Pneumonia Cardiac arrhythmia Retinal disorder Type 2 diabetes mellitus Candidiasis Other specified disorders of right ear Hx of renal calculi Depressive disorder Temporomandibular dysfunction syndrome Diabetes mellitus without complication Gender dysphoria Hematuria Seborrheic keratoses Dysplastic nevus of skin Multiple benign melanocytic nevi Acquired deflected nasal septum Acquired hallux limitus of both feet Atherosclerosis of artery of lower extremity Nail dystrophy Surgical History (Updated 05/23/24 @ 16:10 by Xiomara Tran RN) History of ear surgery ears pinned History of colonoscopy History of hand surgery finger History of gender affirmation surgery neovagina S/P appendectomy History of nasal surgery Family History (Updated 05/23/24 @ 16:11 by Xiomara Tran RN) Father Lung cancer Mother Stroke Diabetes Sister Uterine cancer Social History Smoking/Tobacco Use Status: Former Tobacco Use Quit Date: 11/06/68 Smoking risk assessment performed?: Yes Alcohol Intake: current Alcohol Intake frequency: a few times a week Alcohol type: beer Drug use: Never Substance use type: does not use Do you feel safe at home: Yes Do you feel safe in your relationship?: Yes
--- NOTE | 2025-07-10 22:18 | DI.[facility]_ITS ---
PROCEDURE INFORMATION: Exam: XR Right Hand Exam date and time: 07/10/2025 9:13 PM Age: 75 years old Clinical indication: Other: Dog bite TECHNIQUE: Imaging protocol: Radiologic exam of the right hand. Views: 3 or more views. COMPARISON: No relevant prior studies available. 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 No acute fracture or dislocation. Soft tissues: No soft tissue gas or radiopaque foreign body. IMPRESSION: No acute abnormality. Dictated and Authenticated by: Juan Fam MD. Orderin Sun Beal MD
--- NOTE | 2025-07-10 22:19 | DI.[facility]AD_ITS ---
PROCEDURE INFORMATION: Exam: XR Left Wrist Exam date and time: 07/10/2025 9:20 PM Age: 75 years old Clinical indication: Other: Dog bite TECHNIQUE: Imaging protocol: Radiologic exam of the left wrist. Views: 3 or more views. COMPARISON: CR XR HAND LT COMPLETE 07/10/2025 9:17 PM FINDINGS: Bones/joints: Mild triscaphe and 1st carpometacarpal joint degenerative changes. No acute fracture or dislocation. Soft tissues: Soft tissue swelling and tiny gas locules, volar and radial to the distal radius. No radiopaque foreign body. IMPRESSION: 1. No acute osseous abnormality or soft tissue radiopaque foreign body. 2. Open soft tissue injury, volar and radial to the distal radius. Dictated and Authenticated by: Juan Fam MD. Orderin Sun Beal MD
--- NOTE | 2025-07-10 22:20 | DI.[facility]AD_ITS ---
PROCEDURE INFORMATION: Exam: XR Left Hand Exam date and time: 07/10/2025 9:17 PM Age: 75 years old Clinical indication: Other: Dog bite TECHNIQUE: Imaging protocol: Radiologic exam of the left hand. Views: 3 or more views. COMPARISON: No relevant prior studies available. FINDINGS: Bones/joints: Mild interphalangeal osteoarthritis. No acute fracture or dislocation. Soft tissues: Unremarkable. IMPRESSION: 1. No acute abnormality. 2. Mild osteoarthritis. Dictated and Authenticated by: Juan Fam MD. Orderin Sun Beal MD
== END 2025-07-10 22:28 | disposition home or self-care (01) ==
PROVIDERS: Emergency Provider Student in an Organized Health Care Education/Training Program; PCP Student in an Organized Health Care Education/Training Program
DX: S61.431A Puncture wound without foreign body of right hand, initial encounter (principal); S61.432A Puncture wound without foreign body of left hand, initial encounter; S61.531A Puncture wound without foreign body of right wrist, initial encounter; S61.532A Puncture wound without foreign body of left wrist, initial encounter; W54.0XXA Bitten by dog, initial encounter; R20.2 Paresthesia of skin; Z23 Encounter for immunization
CPT/HCPCS: 99284 ×2; 90471; 90714; 73110; 73130; J2004

== ENCOUNTER → 2025-10-28 10:57 | Outpatient (CLI) | payer OTHER, SELFPAY ==
--- NOTE | 2025-10-28 | DI.RAD_ITS ---
Exam(s) XR CHEST 2V PA LATERAL EXAM: XR CHEST 2V PA LATERAL CLINICAL HISTORY: CHRONIC BRONCHITIS WITH PRODUCTIVE COUGH, J41.1. TECHNIQUE: 2D digital imaging was performed. COMPARISON: No exams were available for comparison FINDINGS: 2 views: Heart size is normal. The mediastinum is not widened. Left lung is clear. There is a round density in the right infrahilar region measuring 1.5 x 1.7 cm. This is possibly nodule versus is pulmonary vessel visualized end-on. There are no previous for comparison. No other nodular findings in either lung field and there are no pleural effusions. No infi ltrates. IMPRESSION: There is a 15 x 17 mm nodular density in the right infrahilar region. There is a possibly that this is a pulmonary artery visualized end-on. Other possibly is are enlarged lymph node versus lung nodule. There are no previous chest x-rays for comparison in our PACS. Therefore recommend contrast infused CT scan. DATA REPOSITORY: RADIATION DOSE DELIVERED:
== END ==
PROVIDERS: PCP Student in an Organized Health Care Education/Training Program; Visit Provider Family Medicine
DX: J41.1 Mucopurulent chronic bronchitis (principal)
CPT/HCPCS: 71046

== ENCOUNTER → 2025-11-05 12:15 | Outpatient (CLI) | payer OTHER, SELFPAY ==
--- NOTE | 2025-11-05 | DI.CT_ITS ---
Exam(s) CT CHEST W EXAM: CT CHEST W CLINICAL HISTORY: F/U CXR,? LUNG NODULE OR LYMPH NODE,R91.1,NODULAR DENSITY TECHNIQUE: Imaging Protocol: Axial computed tomography images with coronal and sagittal reformatted images were created and reviewed. Computer aided detection (CAD) was utilized. CONTRAST MATERIAL: Intravenous: Omnipaque 350 Contrast volume:structured data ml. COMPARISON: CR XR CHEST 2V PA LATERAL from 10/28/2025 FINDINGS: Pulmonary parenchyma: No consolidation. No dominant measurable mass. No pulmonary nodules. Tracheobronchial tree: No bronchiectasis or mucous plugging. Mediastinum and Mary: No dominant adenopathy or fluid collection. Pleura: No effusion. No pneumothorax. Heart: The heart is not dilated. Moderate severe coronary artery calcifications are seen. Aorta: Thoracic aorta non-dilated. Mild atherosclerotic changes. Pulmonary arteries: No gross evidence of emboli. Upper abdomen: No acute findings. Bones: Minimaldegenerative changes in the spine. Soft tissues: Unremarkable. IMPRESSION: No evidence right hilar adenopathy or pulmonary nodule. The finding on chest x- ray corresponds to a vessel on end. RADIATION DOSE DELIVERED: 122.21mGy.cm Total DLP DATA REPOSITORY: All CT scans at this facility are submitted to the National Radiology Data Registry (NRDR) Dose Index Registry (DIR) with the [employer] (A[employer]). RADIATION OPTIMIZATION: All CT scans at this facility use at least one of these dose optimization techniques: automated exposure control; mA and/or kV adjustment per patient size (includes targeted exams where dose is matched to clinical indication); or iterative reconstruction.
[2025-11-05] MEDS: Normal Saline - Diluent 50 ML VIAL IJ (13:23)
[2025-11-05] MEDS: Omnipaque 350 MG/ML 100 ML BTL IJ (13:23)
[2025-11-05] MEDS: Normal Saline Flush 10 ML SYR IVP (13:23)
== END ==
PROVIDERS: PCP Student in an Organized Health Care Education/Training Program; Visit Provider Family Medicine
DX: R91.1 Solitary pulmonary nodule (principal)
CPT/HCPCS: 71260; 82565; J3490